=== PATIENT | male | born 1970 | race Caucasian/White ===

== ENCOUNTER 2018-12-20 13:00 | Emergency (ER) | payer OTHER, SELFPAY ==
[2018-12-20 13:09] VITALS: BP 120/81; PULSE 89; RESP 16; TEMP 37.1; O2SAT 99; BMI 25.8
[2018-12-20 13:21] LABS: Bedside Glucose 213 mg/dL (70-110)
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
--- NOTE | 2018-12-20 13:38 | EKG12_ITS ---
Test Reason : Blood Pressure : / mmHG Vent. Rate : 083 BPM Atrial Rate : 083 BPM P-R Int : 166 ms QRS Dur : 100 ms QT Int : 388 ms P-R-T Axes : 011 007 014 degrees QTc Int : 455 ms Normal sinus rhythm Normal ECG Confirmed by AMBER FERRERA, CLARY ([id number]), book editor ALISON LEVIN ([id number]) on 12/22/2018 2:11:56 PM Referred By: CORINNE Confirmed By:CLARY CLARK MD
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
[2018-12-20 13:40] VITALS: O2SAT 95
[2018-12-20 14:03] VITALS: BP 116/76; PULSE 83; RESP 18
[2018-12-20 14:09] LABS: Absolute Lymphocyte Count 2.08 X10^3/ul (0.83-4.51); Absolute Neutrophil Count 8.3 X10^3/uL (2.0-7.7); Basophil# 0.05 X10^3/uL; Basophil% 0.4 % (0-1); Eosinophil# 0.14 X10^3/uL; Eosinophils% 1.2 % (0-5); Hematocrit 39.9 % (40-54); Hemoglobin 12.7 g/dl (13.0-16.5); Lymphocyte # 2.08 X10^3/ul (4.0); Lymphocyte % 18.5 % (19-41); Mean Corp Hgb Conc 31.8 g/gl (32-36); Mean Corpuscular Hgb 24.8 pg (27.0-32.0); Mean Corpuscular Volume 77.9 fL (80-94); Monocyte# 0.62 X10^3/uL; Monocyte% 5.5 % (0-10); Neutrophil # 8.33 X10^3/uL (2.7-7.7); Platelet Count 353 K/mm3 (150-450); RBC Distribution Width CV 15.1 % (11.6-14.6); RBC Distribution Width SD 41.9 fl (35.1-43.9); Red Blood Count 5.12 M/mm3 (4.6-6.2); White Blood Count 11.3 K/mm3 (4.4-11.0)
[2018-12-20 14:10] LABS: POSITIVE COUNT NO; POSITIVE DIFFERENTIAL NO; POSITIVE MORPHOLOGY NO
[2018-12-20 14:24] LABS: AST(SGOT) 117 U/L (15-37); Alanine Aminotransfer ALT/SGPT 97 U/L (16-61); Albumin, Serum 4.1 g/dL (3.2-5.0); Alkaline Phosphatase 106 U/L (45-117); Anion Gap 12 (5-15); BUN 10 mg/dL (7-18); BUN/Creat Ratio 11.3 RATIO (10-20); Calcium,Total 9.4 mg/dL (8.5-10.1); Chloride 105 mmol/L (98-107); Creatinine, Serum 0.88 mg/dL (0.70-1.30); EST Glomerular Filtration Rate 98 mL/min (>60); Est Glom Filt Rate - Afr Amer 119 mL/min (>60); Estimated Creatinine Clearance 104.89 ml/min; Glucose 223 mg/dL (74-106); Potassium 3.6 mmol/L (3.5-5.1); Protein, Total 8.1 g/dL (6.4-8.2); Sodium Level 137 mmol/L (136-145)
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
[2018-12-20 15:13] VITALS: BP 97/56; PULSE 88; RESP 18; O2SAT 95
[2018-12-20] MEDS: Acetaminophen 500 MG Tablet 1000 MG PO (15:13)
[2018-12-20 15:21] VITALS: BP 107/73; PULSE 87; RESP 16; O2SAT 96
== END 2018-12-20 15:23 | disposition home or self-care (01) ==
PROVIDERS: Emergency Provider Emergency Medicine
DX: S20.212A Contusion of left front wall of thorax, initial encounter (principal); S20.211A Contusion of right front wall of thorax, initial encounter; S00.83XA Contusion of other part of head, initial encounter; T14.8XXA Other injury of unspecified body region, initial encounter; V47.5XXA Car driver injured in collision with fixed or stationary object in traffic accident, initial encounter; Y93.9 Activity, unspecified; Y99.9 Unspecified external cause status; F10.129 Alcohol abuse with intoxication, unspecified; Y90.8 Blood alcohol level of 240 mg/100 ml or more; E11.9 Type 2 diabetes mellitus without complications; I10 Essential (primary) hypertension; K21.9 Gastro-esophageal reflux disease without esophagitis; Z72.0 Tobacco use; Z79.84 Long term (current) use of oral hypoglycemic drugs; Z79.899 Other long term (current) drug therapy
CPT/HCPCS: 70450; 70486; 71260; 72125; 80053; 80320; 82962; 84484; 85025; 93005; 99284; Q9967; A4216; G0480

== ENCOUNTER 2019-01-27 16:19 | Emergency (ER) | payer OTHER, SELFPAY ==
[2019-01-27] VITALS (8 sets, daily range): BP systolic 105–159; BP diastolic 62–105; PULSE 88–108; RESP 15–24; TEMP 36.8; O2SAT 91–99; BMI 24.5
--- NOTE | 2019-01-27 16:34 | CM.ED ---
SOCIAL WORK NOTE AT THIS TIME PT APPEARS TOO INEBRIATED TO EVALUATE. WILL AWAIT BLOOD ALCOHOL RESULT BEFORE EVALUATION. SW TO CONTINUE TO FOLLOW AND ASSIST NEEDED. Jossy Jack, THREAD SPOOLER, KITA
[2019-01-27 16:45] LABS: Bedside Glucose 389 mg/dL (70-110)
[2019-01-27] MEDS: 0.9% Normal Saline 1,000 ML 1000 ML IV ×2 (17:48→18:52)
[2019-01-27 17:54] LABS: Absolute Lymphocyte Count 4.87 X10^3/ul (0.83-4.51); Absolute Neutrophil Count 5.4 X10^3/uL (2.0-7.7); Basophil# 0.06 X10^3/uL; Basophil% 0.5 % (0-1); Eosinophil# 0.11 X10^3/uL; Hematocrit 40.8 % (40-54); Hemoglobin 13.5 g/dl (13.0-16.5); Lymphocyte # 4.87 X10^3/ul (4.0); Lymphocyte % 44.1 % (19-41); Mean Corp Hgb Conc 33.1 g/gl (32-36); Mean Corpuscular Volume 72.6 fL (80-94); Mean Platelet Vol. 9.4 fl (6.2-12.0); Monocyte# 0.64 X10^3/uL; Monocyte% 5.8 % (0-10); Neutrophil # 5.35 X10^3/uL (2.7-7.7); Neutrophil % 48.4 % (47-70); Platelet Count 320 K/mm3 (150-450); RBC Distribution Width CV 14.5 % (11.6-14.6); RBC Distribution Width SD 37.8 fl (35.1-43.9); Red Blood Count 5.62 M/mm3 (4.6-6.2); White Blood Count 11.1 K/mm3 (4.4-11.0)
[2019-01-27 17:57] LABS: Differential Indicated SCAN CRITERIA MET; POSITIVE COUNT NO; POSITIVE DIFFERENTIAL NO; POSITIVE MORPHOLOGY YES
--- NOTE | 2019-01-27 18:02 | ED.RN ---
pt family at bedside. pt is loud, but not threatening harm to self of other at this time. 1:1 sitter in room and preforming q15 min charting. pt was asked to mind his mouth. pt is using profanity and vaguer language. still waiting on labs for crisis. dr was consulted about medications to assist patient to relax. dr wants etoh level back before meds being given. coretta urias rn [id number]
[2019-01-27 18:15] LABS: Anion Gap 14 (5-15); BUN 14 mg/dL (7-18); Calcium,Total 9.3 mg/dL (8.5-10.1); Chloride 102 mmol/L (98-107); Creatinine, Serum 0.88 mg/dL (0.70-1.30); EST Glomerular Filtration Rate 99 mL/min (>60); Est Glom Filt Rate - Afr Amer 120 mL/min (>60); Estimated Creatinine Clearance 111.71 ml/min; Glucose 336 mg/dL (74-106); Potassium 3.7 mmol/L (3.5-5.1); Sodium Level 139 mmol/L (136-145)
[2019-01-27 18:16] LABS: Amphetamine Urine VISTA NEGATIVE (<1000 ng/mL); Barbiturate Urine VISTA NEGATIVE (< 200 ng/mL); Benzodiazepine Urine VISTA NEGATIVE (< 200 ng/mL); Cocaine Urine VISTA NEGATIVE (< 300 ng/mL); Ecstacy Urine VISTA NEGATIVE (< 500 ng/mL); Methadone Urine VISTA NEGATIVE (< 300 ng/mL); PCP Urine VISTA NEGATIVE (< 25 ng/mL); THC Urine VISTA NEGATIVE (< 50 ng/mL); Vista UDS pH Range 6
[2019-01-27 18:17] LABS: Anisocytosis 1+; Microcytosis 1+; Ovalocyte RARE; Platelet Estimate ADEQUATE (ADEQ); Target Cells 1+; Tear Drop Cell RARE
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
[2019-01-27] MEDS: Ziprasidone IM 20 MG/ML VIAL IM (18:55)
[2019-01-27] MEDS: metFORMIN HCl 1,000 MG Tablet 1000 MG PO (18:58)
--- NOTE | 2019-01-27 19:03 | CM.ED ---
SOCIAL WORK NOTE PT'S ALCOHOL LEVEL PRESENTLY AT 384. UNABLE TO ASSESS AT THIS TIME. Jossy Jack, TECHNICIAN HELPER INSTRUMENT, HOME HEALTH ATTENDANT
[2019-01-28] VITALS (7 sets, daily range): BP systolic 118–165; BP diastolic 76–118; PULSE 90–108; RESP 14–16; O2SAT 91–98
--- NOTE | 2019-01-28 05:56 | ED.DEP ---
ED Disposition - Plan for ED Patient: Instructions: ED Alcohol Intoxication Referrals: [facility],Tahmina Hinton [Primary Care Provider] -
== END 2019-01-28 07:04 | disposition home or self-care (01) ==
LOC: ED 17:02
PROVIDERS: Emergency Provider Emergency Medicine
DX: F10.129 Alcohol abuse with intoxication, unspecified (principal); Y90.8 Blood alcohol level of 240 mg/100 ml or more; F32.9 Major depressive disorder, single episode, unspecified; E11.65 Type 2 diabetes mellitus with hyperglycemia; R45.851 Suicidal ideations; R05 Cough; R51 Headache; K21.9 Gastro-esophageal reflux disease without esophagitis; Z72.0 Tobacco use; Z79.84 Long term (current) use of oral hypoglycemic drugs; Z79.899 Other long term (current) drug therapy; Z87.19 Personal history of other diseases of the digestive system; Z90.49 Acquired absence of other specified parts of digestive tract
CPT/HCPCS: 80048; 80307; 80320; 82962; 85025; 96360; 96361; 96372; 99285; J7030; A4216; G0480; J3486

== ENCOUNTER → 2019-07-23 07:12 | Outpatient (CLI) | payer MEDICAID, SELFPAY ==
[2019-01-27 16:21] VITALS: BMI 24.5
[2019-07-23 08:23] LABS: Absolute Neutrophil Count 6.7 X10^3/uL (2.0-7.7); Basophil# 0.05 X10^3/uL; Basophil% 0.5 % (0-1); Eosinophil# 0.18 X10^3/uL; Eosinophils% 1.7 % (0-5); Hematocrit 44.1 % (40-54); Lymphocyte % 26.7 % (19-41); Mean Corp Hgb Conc 29.5 g/dL (32-36); Mean Corpuscular Hgb 21.1 pg (27.0-32.0); Mean Corpuscular Volume 71.7 fL (80-94); Mean Platelet Vol. 10.4 fl (6.2-12.0); Monocyte# 0.98 X10^3/uL; NRBC Flagged by Analyzer 0 % (0-5); Neutrophil # 6.71 X10^3/uL (2.7-7.7); Neutrophil % 61.7 % (47-70); Platelet Count 330 K/mm3 (150-450); RBC Distribution Width CV 14.5 % (11.6-14.6); RBC Distribution Width SD 36.5 fl (35.1-43.9); Red Blood Count 6.15 M/mm3 (4.6-6.2); White Blood Count 10.9 K/mm3 (4.4-11.0)
[2019-07-23 08:39] LABS: Hemoglobin A1c 9.9 % (4.2-6.3)
[2019-07-23 08:58] LABS: ALB/GLOB Ratio 1.2 RATIO (0.9-2.4); AST(SGOT) 13 U/L (15-37); Alanine Aminotransfer ALT/SGPT 30 U/L (16-61); Albumin, Serum 4.3 g/dL (3.2-5.0); Alkaline Phosphatase 86 U/L (45-117); Anion Gap 11 (5-15); BUN 13 mg/dL (7-18); BUN/Creat Ratio 14.1 RATIO (10-20); Calcium,Total 9.3 mg/dL (8.5-10.1); Chloride 105 mmol/L (98-107); Cholesterol 128 mg/dL (200); Creatinine, Serum 0.92 mg/dL (0.70-1.30); EST Glomerular Filtration Rate 94 mL/min (>60); Est Glom Filt Rate - Afr Amer 113 mL/min (>60); GGTP 41 U/L (15-85); Globulin 3.7 g/dL (2.2-4.2); Glucose 237 mg/dL (74-106); High Density Lipoprotein 32 mg/dL; Potassium 3.8 mmol/L (3.5-5.1); Sodium Level 140 mmol/L (136-145); T4 Free Direct 1.17 ng/dL (0.76-1.46); T4 Total, Thyroxin 11.1 ug/dL (4.5-12.1); Triglycerides 190 mg/dL; Very Low Density Lipoprotein 38 mg/dL (5-40)
[2019-07-23 09:35] LABS: Vitamin D,25 Hydroxy 25.3 ng/mL (29.95-100.01)
== END ==
PROVIDERS: Referring Provider Nurse Practitioner Family; Visit Provider Nurse Practitioner Family
DX: E11.9 Type 2 diabetes mellitus without complications (principal); I10 Essential (primary) hypertension; E78.5 Hyperlipidemia, unspecified; E55.9 Vitamin D deficiency, unspecified
CPT/HCPCS: 36415; 80053; 80061; 82306; 82977; 83036; 84436; 84439; 85025

== ENCOUNTER → 2019-12-05 11:08 | Outpatient (CLI) | payer MEDICAID, SELFPAY ==
[2019-01-27 16:21] VITALS: BMI 24.5
[2019-12-05 11:45] LABS: Hematocrit 42.3 % (40-54); Hemoglobin 12.9 g/dL (13.0-16.5); Mean Corp Hgb Conc 30.5 g/dL (32-36); Mean Corpuscular Hgb 21.2 pg (27.0-32.0); Mean Corpuscular Volume 69.6 fL (80-94); Mean Platelet Vol. 9.8 fl (6.2-12.0); Platelet Count 351 K/mm3 (150-450); RBC Distribution Width CV 15.5 % (11.6-14.6); RBC Distribution Width SD 36.5 fl (35.1-43.9); Red Blood Count 6.08 M/mm3 (4.6-6.2); White Blood Count 12.3 K/mm3 (4.4-11.0)
[2019-12-05 12:15] LABS: ALB/GLOB Ratio 1.2 RATIO (0.9-2.4); AST(SGOT) 13 U/L (15-37); Alanine Aminotransfer ALT/SGPT 39 U/L (16-61); Albumin, Serum 4.4 g/dL (3.2-5.0); Alkaline Phosphatase 91 U/L (45-117); Anion Gap 9 (5-15); BUN 10 mg/dL (7-18); BUN/Creat Ratio 9.6 RATIO (10-20); Calcium,Total 9.7 mg/dL (8.5-10.1); Chloride 106 mmol/L (98-107); Cholesterol 108 mg/dL (200); Creatinine, Serum 1.04 mg/dL (0.70-1.30); EST Glomerular Filtration Rate 81 mL/min (>60); Est Glom Filt Rate - Afr Amer 98 mL/min (>60); Globulin 3.8 g/dL (2.2-4.2); Glucose 240 mg/dL (74-106); High Density Lipoprotein 39 mg/dL; Potassium 3.7 mmol/L (3.5-5.1); Protein, Total 8.2 g/dL (6.4-8.2); Sodium Level 139 mmol/L (136-145); Triglycerides 103 mg/dL; Very Low Density Lipoprotein 21 mg/dL (5-40)
[2019-12-05 12:23] LABS: Hemoglobin A1c 9.3 % (4.2-6.3)
== END ==
PROVIDERS: Referring Provider Nurse Practitioner Family; Visit Provider Nurse Practitioner Family
DX: E11.9 Type 2 diabetes mellitus without complications (principal); I11.0 Hypertensive heart disease with heart failure
CPT/HCPCS: 36415; 80053; 80061; 83036; 85027

== ENCOUNTER 2020-04-09 08:46 | Emergency (ER) | payer MEDICAID, SELFPAY ==
[2019-01-27 16:21] VITALS: BMI 24.5
[2020-04-09 08:47] VITALS: BP 169/87; PULSE 88; RESP 19; TEMP 37.1; O2SAT 97; BMI 25.8
[2020-04-09 08:51] VITALS: O2SAT 100
--- NOTE | 2020-04-09 09:00 | EKG12_ITS ---
Test Reason : DYSRHYTHMIA Blood Pressure : / mmHG Vent. Rate : 078 BPM Atrial Rate : 078 BPM P-R Int : 166 ms QRS Dur : 108 ms QT Int : 374 ms P-R-T Axes : 032 005 050 degrees QTc Int : 426 ms Normal sinus rhythm Normal ECG Confirmed by AMBER FERRERA, CLARY ([id number]), school photograph editor MEGAN DC ([id number]) on 04/12/2020 9:23:15 AM Referred By: Confirmed By:CLARY CLARK MD
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
[2020-04-09 09:38] LABS: Absolute Lymphocyte Count 2.18 X10^3/uL (0.83-4.51); Absolute Neutrophil Count 5.3 X10^3/uL (2.0-7.7); Basophil# 0.02 X10^3/uL; Basophil% 0.2 % (0-1); Eosinophil# 0.11 X10^3/uL; Eosinophils% 1.3 % (0-5); Hematocrit 39.2 % (40-54); Hemoglobin 11.7 g/dL (13.0-16.5); Lymphocyte # 2.18 X10^3/ul (4.0); Lymphocyte % 26.3 % (19-41); Mean Corp Hgb Conc 29.8 g/dL (32-36); Mean Corpuscular Hgb 21.4 pg (27.0-32.0); Mean Corpuscular Volume 71.5 fL (80-94); Mean Platelet Vol. 9.8 fl (6.2-12.0); Monocyte# 0.61 X10^3/uL; Monocyte% 7.4 % (0-10); NRBC Flagged by Analyzer 0 % (0-5); Neutrophil # 5.31 X10^3/uL (2.7-7.7); Neutrophil % 64.2 % (47-70); Platelet Count 338 K/mm3 (150-450); RBC Distribution Width CV 14.4 % (11.6-14.6); RBC Distribution Width SD 36.6 fl (35.1-43.9); Red Blood Count 5.48 M/mm3 (4.6-6.2); White Blood Count 8.3 K/mm3 (4.4-11.0)
--- NOTE | 2020-04-09 09:44 | NURSING ---
GREEN TOP HEMOLIZED
[2020-04-09 10:24] LABS: Alcohol, Blood (Medical)-Serum < 3.0 mg/dL
[2020-04-09 10:30] LABS: ALB/GLOB Ratio 1.1 RATIO (0.9-2.4); AST(SGOT) 15 U/L (15-37); Alanine Aminotransfer ALT/SGPT 25 U/L (16-61); Alkaline Phosphatase 67 U/L (45-117); Anion Gap 3 (5-15); BUN 13 mg/dL (7-18); BUN/Creat Ratio 15.6 RATIO (10-20); Calcium,Total 9.1 mg/dL (8.5-10.1); Chloride 107 mmol/L (98-107); Creatinine, Serum 0.84 mg/dL (0.70-1.30); EST Glomerular Filtration Rate 105 mL/min (>60); Est Glom Filt Rate - Afr Amer 127 mL/min (>60); Estimated Creatinine Clearance 119.33 ml/min; Globulin 3.7 g/dL (2.2-4.2); Glucose 180 mg/dL (74-106); Potassium 4.4 mmol/L (3.5-5.1); Protein, Total 7.7 g/dL (6.4-8.2); Sodium Level 138 mmol/L (136-145)
[2020-04-09 11:06] VITALS: PULSE 80; RESP 18; O2SAT 99
[2020-04-09 13:23] VITALS: BP 139/77; PULSE 68; RESP 15; O2SAT 98
== END 2020-04-09 13:24 | disposition home or self-care (01) ==
PROVIDERS: Emergency Provider Emergency Medicine; PCP Nurse Practitioner Family
DX: S02.32XA Fracture of orbital floor, left side, initial encounter for closed fracture (principal); S30.1XXA Contusion of abdominal wall, initial encounter; S00.81XA Abrasion of other part of head, initial encounter; V47.5XXA Car driver injured in collision with fixed or stationary object in traffic accident, initial encounter; Y93.89 Activity, other specified; Y92.9 Unspecified place or not applicable; Y99.9 Unspecified external cause status; Z88.0 Allergy status to penicillin; F17.200 Nicotine dependence, unspecified, uncomplicated
CPT/HCPCS: 70450; 71046; 74177; 80053; 80320; 84484; 85025; 93005; 99285; Q9967; A4216; G0480

== ENCOUNTER → 2020-07-16 11:15 | Outpatient (CLI) | payer MEDICAID, SELFPAY ==
[2020-07-16 11:51] LABS: Absolute Lymphocyte Count 1.96 X10^3/uL (0.83-4.51); Absolute Neutrophil Count 5.7 X10^3/uL (2.0-7.7); Basophil# 0.03 X10^3/uL; Basophil% 0.3 % (0-1); Eosinophil# 0.12 X10^3/uL; Eosinophils% 1.4 % (0-5); Hematocrit 40.3 % (40-54); Hemoglobin 11.8 g/dL (13.0-16.5); Lymphocyte # 1.96 X10^3/ul (4.0); Lymphocyte % 22.8 % (19-41); Mean Corp Hgb Conc 29.3 g/dL (32-36); Mean Corpuscular Hgb 20.6 pg (27.0-32.0); Mean Corpuscular Volume 70.2 fL (80-94); Mean Platelet Vol. 8.9 fl (6.2-12.0); Monocyte# 0.75 X10^3/uL; Monocyte% 8.7 % (0-10); NRBC Flagged by Analyzer 0 % (0-5); Neutrophil # 5.73 X10^3/uL (2.7-7.7); Neutrophil % 66.6 % (47-70); Platelet Count 346 K/mm3 (150-450); RBC Distribution Width CV 15.4 % (11.6-14.6); RBC Distribution Width SD 38.3 fl (35.1-43.9); Red Blood Count 5.74 M/mm3 (4.6-6.2); White Blood Count 8.6 K/mm3 (4.4-11.0)
[2020-07-16 12:23] LABS: ALB/GLOB Ratio 1.2 RATIO (0.9-2.4); AST(SGOT) 15 U/L (15-37); Alanine Aminotransfer ALT/SGPT 23 U/L (16-61); Albumin, Serum 4.4 g/dL (3.2-5.0); Alkaline Phosphatase 103 U/L (45-117); Anion Gap 7 (5-15); BUN 12 mg/dL (7-18); Calcium,Total 9.9 mg/dL (8.5-10.1); Chloride 105 mmol/L (98-107); Cholesterol 163 mg/dL (200); EST Glomerular Filtration Rate 85 mL/min (>60); Est Glom Filt Rate - Afr Amer 103 mL/min (>60); Globulin 3.7 g/dL (2.2-4.2); Glucose 140 mg/dL (74-106); High Density Lipoprotein 35 mg/dL; Potassium 3.8 mmol/L (3.5-5.1); Protein, Total 8.1 g/dL (6.4-8.2); Sodium Level 137 mmol/L (136-145); Triglycerides 138 mg/dL; Very Low Density Lipoprotein 28 mg/dL (5-40)
[2020-07-16 12:28] LABS: Hemoglobin A1c 8.3 % (3.8-5.6)
[2020-07-18 08:41] LABS: Vitamin D,25 Hydroxy 55.8 ng/mL
== END ==
PROVIDERS: PCP Nurse Practitioner Family; Referring Provider Nurse Practitioner Family; Visit Provider Nurse Practitioner Family
DX: E11.9 Type 2 diabetes mellitus without complications (principal); I10 Essential (primary) hypertension; E78.5 Hyperlipidemia, unspecified; E55.9 Vitamin D deficiency, unspecified
CPT/HCPCS: 36415; 80053; 80061; 82306; 83036; 85025

== ENCOUNTER → 2021-03-24 10:04 | Outpatient (CLI) | payer BC, MEDICAID, SELFPAY ==
[2021-03-24 11:33] LABS: Absolute Lymphocyte Count 2.06 X10^3/uL (0.83-4.51); Absolute Neutrophil Count 5.1 X10^3/uL (2.0-7.7); Basophil# 0.05 X10^3/uL; Basophil% 0.6 % (0-1); Eosinophil# 0.31 X10^3/uL; Eosinophils% 3.7 % (0-5); Hematocrit 42.5 % (40-54); Hemoglobin 12.3 g/dL (13.0-16.5); Lymphocyte # 2.06 X10^3/ul (0.83-4.51); Lymphocyte % 24.6 % (19-41); Mean Corp Hgb Conc 28.9 g/dL (32-36); Mean Corpuscular Hgb 20.8 pg (27.0-32.0); Mean Corpuscular Volume 71.9 fL (80-94); Mean Platelet Vol. 9.2 fl (6.2-12.0); Monocyte# 0.79 X10^3/uL; Monocyte% 9.4 % (0-10); NRBC Flagged by Analyzer 0 % (0-5); Neutrophil # 5.12 X10^3/uL (2.7-7.7); Neutrophil % 61.1 % (47-70); Platelet Count 377 K/mm3 (150-450); RBC Distribution Width CV 15.5 % (11.6-14.6); RBC Distribution Width SD 39.1 fl (35.1-43.9); Red Blood Count 5.91 M/mm3 (4.6-6.2); White Blood Count 8.4 K/mm3 (4.4-11.0)
[2021-03-24 12:04] LABS: ALB/GLOB Ratio 1.1 RATIO (0.9-2.4); AST(SGOT) 20 U/L (15-37); Alanine Aminotransfer ALT/SGPT 36 U/L (16-61); Albumin, Serum 4.4 g/dL (3.2-5.0); Alkaline Phosphatase 128 U/L (45-117); Anion Gap 8 (5-15); BUN 16 mg/dL (7-18); Calcium,Total 9.3 mg/dL (8.5-10.1); Chloride 101 mmol/L (98-107); Cholesterol 121 mg/dL (200); Creatinine, Serum 0.94 mg/dL (0.70-1.30); EST Glomerular Filtration Rate 91 mL/min (>60); Est Glom Filt Rate - Afr Amer 110 mL/min (>60); Glucose 302 mg/dL (74-106); High Density Lipoprotein 36 mg/dL; Microalbumin:Creatinine Ratio 364.2 mg/g CRE (<30 mg/g CRE); Potassium 4.1 mmol/L (3.5-5.1); Protein, Total 8.4 g/dL (6.4-8.2); Sodium Level 134 mmol/L (136-145); Triglycerides 367 mg/dL; Very Low Density Lipoprotein 73 mg/dL (5-40)
== END ==
PROVIDERS: PCP Nurse Practitioner Adult Health; Referring Provider Nurse Practitioner Adult Health; Visit Provider Nurse Practitioner Adult Health
DX: E11.9 Type 2 diabetes mellitus without complications (principal)
CPT/HCPCS: 36415; 80053; 80061; 82043; 82570; 85025

== ENCOUNTER 2021-11-06 05:38 | Emergency (ER) | payer OTHER, MEDICAID, SELFPAY ==
[2021-11-06 05:39] VITALS: BP 181/98; PULSE 95; RESP 16; TEMP 36.8; O2SAT 95; BMI 25.9
[2021-11-06 06:00] LABS: Absolute Lymphocyte Count 2.68 X10^3/uL (0.83-4.51); Absolute Neutrophil Count 5.6 X10^3/uL (2.0-7.7); Basophil# 0.05 X10^3/uL; Basophil% 0.5 % (0-1); Eosinophil# 0.06 X10^3/uL; Eosinophils% 0.7 % (0-5); Hematocrit 40.2 % (40-54); Hemoglobin 11.7 g/dL (13.0-16.5); Lymphocyte # 2.68 X10^3/ul (0.83-4.51); Lymphocyte % 29.2 % (19-41); Mean Corp Hgb Conc 29.1 g/dL (32-36); Mean Corpuscular Hgb 20.3 pg (27.0-32.0); Mean Corpuscular Volume 69.9 fL (80-94); Mean Platelet Vol. 9.1 fl (6.2-12.0); Monocyte# 0.79 X10^3/uL; Monocyte% 8.6 % (0-10); NRBC Flagged by Analyzer 0 % (0-5); Neutrophil # 5.57 X10^3/uL (2.7-7.7); Neutrophil % 60.8 % (47-70); Platelet Count 345 K/mm3 (150-450); RBC Distribution Width CV 15.7 % (11.6-14.6); RBC Distribution Width SD 38.6 fl (35.1-43.9); Red Blood Count 5.75 M/mm3 (4.6-6.2); White Blood Count 9.2 K/mm3 (4.4-11.0)
--- NOTE | 2021-11-06 06:07 | EDS_ITS ---
HPI <Dr. Osmin Fernandes MD - Last Filed: 11/06/21 21:57> History of Present Illness Chief Complaint: Laceration Informant: patient Narrative Narrative: Patient presents with injury to his right hand while at work shortly before arrival. He got his hand caught in a piece of machinery that had 2 rotating drums with an intervening belt and a guard. His hand got pulled into the machine and up against the guard. He had a laceration with some squirting of blood at the scene. This is controlled with gauze applied before arrival. Nothing really makes the symptoms worse. The gauze and compression did make it better. He has no other injury other than his right hand/wrist area. He is right-hand dominant. Past medical history includes high blood pressure, diabetes, high cholesterol Medication list is reviewed Allergy: Penicillin patient states it is an unknown reaction from childhood Surgery: Appendectomy Works full-time, lives independently, does smoke [facility] <Dr. Osmin Fernandes MD - Last Filed: 11/06/21 21:57> [facility] Medical History (Updated 11/06/21 @ 13:16 by Delonte Mcfarland) Diabetes Gastric reflux History of diverticulitis Hyperlipidemia Hypertension Open wound Wears glasses Home Medications amlodipine 5 mg PO DAILY 12/20/18 [History Last Taken Unknown] losartan 100 mg PO DAILY 12/20/18 [History Last Taken Unknown] metformin 1,000 mg PO BID 12/20/18 [History Last Taken Unknown] omeprazole 20 mg PO DAILY 12/20/18 [History Last Taken Unknown] sertraline [Zoloft] 100 mg PO DAILY 12/20/18 [History Last Taken Unknown] atorvastatin 10 mg PO DAILY 11/06/21 [History Last Taken Unknown] clindamycin HCl 300 mg PO 4X/DAY #80 cap 11/06/21 [Rx Last Taken 11/06/21] hydrocodone-acetaminophen 1 tab PO Q6H PRN 3 Days #10 tab 11/06/21 [Rx Last Taken 11/06/21] insulin detemir U-100 [Levemir FlexTouch U-100 Insuln] 60 unit SUBCUT DAILY 11/06/21 [History Last Taken Unknown] pioglitazone 15 mg PO DAILY 11/06/21 [History Last Taken Unknown] Allergy/AdvReac Type Severity Reaction Status Date / Time bupropion [From Wellbutrin] Allergy Hives Verified 11/06/21 13:40 Penicillins Allergy Swelling Verified 11/06/21 13:39 Family History (Updated 11/06/21 @ 13:17 by Delonte Mcfarland) Mother Pancreatic cancer Surgical History (Updated 11/06/21 @ 13:14 by Delonte Mcfarland) History of appendectomy History of colon surgery Social History (Updated 11/06/21 @ 13:20 by Delonte Mcfarland) adopted: No household members: other housing: house number of children: 2 financial difficulty paying for basics: not very hard service: No current occupational status: employed current occupation: factory manager current occupational exposures/hazards: Yes (current occupational injury) pets and animals: No history of recent travel: No current gender identity: male Smoking Status: Current every day smoker tobacco type: cigarettes Tobacco: How many years used: 35 Smokeless tobacco user: chewing tobacco and snuff ROS <Dr. Osmin Fernandes MD - Last Filed: 11/06/21 21:57> ROS ED Constitutional Constitutional ED: Denies fever(s) ENT ENT ED: Denies rhinorrhea Respiratory/Chest Respiratory/Chest: Denies cough or dyspnea Gastrointestinal Gastrointestinal: Denies nausea or vomiting Musculoskeletal Musculoskeletal: Reports other Details: See history of present illness Integumentary Reports other Details: Lacerations to right hand and wrist as in history of present illness. Neurologic Neurologic: Reports paresthesias; Denies weakness Endocrine Endocrinology: Denies polydipsia or polyuria Hematologic/Lymphatic Hematologic/Lymphatic: Reports other Details: No anticoagulation ; Denies easy bleeding or easy bruising Allergic/Immunologic Allergic/Immunologic ED: Denies urticaria EXAM <Dr. Osmin Fernandes MD - Last Filed: 11/06/21 21:57> Physical Exam Const Vital Signs: 11/06/21 05:39 11/06/21 07:47 Temperature 98.2 F Temperature Source Temporal Pulse Rate 95 87 Respiratory Rate 16 16 Blood Pressure 181/98 H 169/96 H Blood Pressure Mean 125 120 Pulse Ox 95 99 Oxygen Delivery Method Room Air Room Air Positive well nourished and well developed General Appearance ED: well developed and NAD HEENT atraumatic Neck full ROM Chest Wall inspection of chest normal Resp normal respiratory effort and clear to auscultation bilaterally Auscultation: Negative for rales, rhonchi or wheezes Cardio regular rhythm Rate: regular rate GI normal to inspection, nondistended, normoactive bowel sounds and non-tender Palpation: soft Extremity Extremity Narrative: Right hand is unwrapped. He has a V-shaped laceration on the lateral aspect of his right wrist with retraction of the skin and possibly some tissue loss. There is the possibility of tendon injured or some fascia. Distal to this, there is a large curvilinear laceration of approximately 8 cm on the dorsum of the right thumb in the region of the first webspace. There is a small pulsatile vessel that is stopped with mild pressure. There is also a distal smaller Patient can flex thumb. He can extend it but it is limited. He can extend the tip but not fully or against pressure. There is some concern for weakness of the extensor pollicis longus. His sensation is intact in the thumb but he states it feels less than normal on both the medial and lateral side. However he can feel me touch. Neuro Neuro Narrative: See above extremity exam Sensorium / Orientation: alert Psych mental status grossly normal Skin Skin Narrative: Lacerations as above. <Dr. Ernestina Cruz MD - Last Filed: 11/06/21 07:34> Physical Exam Const Vital Signs: 11/06/21 05:39 11/06/21 07:47 Temperature 98.2 F Temperature Source Temporal Pulse Rate 95 87 Respiratory Rate 16 16 Blood Pressure 181/98 H 169/96 H Blood Pressure Mean 125 120 Pulse Ox 95 99 Oxygen Delivery Method Room Air Room Air [facility] <Dr. Osmin Fernandes MD - Last Filed: 11/06/21 21:57> [facility] Narrative Medical decision making narrative: Patient is given meds for pain, nausea and antibiotics. Dressing was applied with some compression. Tetanus is updated. I feel the combination of this [id number]-[id number] injury, at work, with multiple lacerations, small arterial bleed, slight decrease sensation, questionable tendon injury in a diabetic is more than should be repaired in the emergency department. For this reason I did discuss the case with orthopedic surgeon, Dr. Hernandez. He agreed with the treatment so far and requested we try a gentle rinse out to get this wound heavy cleaner. He will come in and take a look at it to make sure it something that he feels is appropriate to be done locally. Patient was updated. We are pending x-rays. In order to expedite options of surgery, I did do some basic blood work. 06: 35 Dressings were taken down. It looks like the bleeding has now stopped with just compression. The wounds were gently irrigated with a liter of saline. The proximal V-shaped laceration did have some skin that had folded under and stuck. Therefore there may not be any missing skin but this is a thin strip with some decreased vascularity. Patient did seem to have a little bit better motion. The wounds were wrapped again with ABD bandages, Kerlix, and an Ronaldo wrap with mild compression. Lab Data Attestation: I reviewed the patient's lab results. Labs: Laboratory Results - last 24 hr 11/06/21 11/06/21 05:53 05:53 WBC 9.2 RBC 5.75 Hgb 11.7 L Hct 40.2 MCV 69.9 L MCH 20.3 L MCHC 29.1 L RDW Std Deviation 38.6 RDW Coeff of [place] 15.7 H Plt Count 345 MPV 9.1 Immature Gran % (Auto) 0.200 Neut % (Auto) 60.8 Lymph % (Auto) 29.2 [place] % (Auto) 8.6 Eos % (Auto) 0.7 Baso % (Auto) 0.5 Absolute Neuts (auto) 5.6 Absolute Lymphs (auto) 2.68 Nucleated RBC % 0 Sodium 137 Potassium 3.9 Chloride 103 Carbon Dioxide 26.0 Anion Gap 8 BUN 12 Creatinine 0.88 Estim Creat Clear Calc 112.68 Est GFR (MDRD) Af Amer 118 Est GFR (MDRD) Non-Af 98 BUN/Creatinine Ratio 13.6 Glucose 151 H Calcium 9.5 Radiography Diagnostic Testing: Clinical Impression(s) from Imaging Studies Hand X-Ray 11/06/21 06:10 IMPRESSION: 1. Degenerative changes of the IP joint of the thumb. 2. No visualized fracture. 3. Question of soft tissue emphysema in the lateral hand versus artifact from overlying bandaging. Electronically Signed: Eduardo English MD at 6:48 EST , Service support , Chest X-Ray 11/06/21 07:58 IMPRESSION: No acute thoracic pathology. Electronically Signed: Casey Hines MD at 8:36 EST Tel , Service support , <Dr. Ernestina Cruz MD - Last Filed: 11/06/21 07:34> [facility] Lab Data Labs: Laboratory Results - last 24 hr 11/06/21 11/06/21 05:53 05:53 WBC 9.2 RBC 5.75 Hgb 11.7 L Hct 40.2 MCV 69.9 L MCH 20.3 L MCHC 29.1 L RDW Std Deviation 38.6 RDW Coeff of [place] 15.7 H Plt Count 345 MPV 9.1 Immature Gran % (Auto) 0.200 Neut % (Auto) 60.8 Lymph % (Auto) 29.2 [place] % (Auto) 8.6 Eos % (Auto) 0.7 Baso % (Auto) 0.5 Absolute Neuts (auto) 5.6 Absolute Lymphs (auto) 2.68 Nucleated RBC % 0 Sodium 137 Potassium 3.9 Chloride 103 Carbon Dioxide 26.0 Anion Gap 8 BUN 12 Creatinine 0.88 Estim Creat Clear Calc 112.68 Est GFR (MDRD) Af Amer 118 Est GFR (MDRD) Non-Af 98 BUN/Creatinine Ratio 13.6 Glucose 151 H Calcium 9.5 Radiography Diagnostic Testing: Clinical Impression(s) from Imaging Studies Hand X-Ray 11/06/21 06:10 IMPRESSION: 1. Degenerative changes of the IP joint of the thumb. 2. No visualized fracture. 3. Question of soft tissue emphysema in the lateral hand versus artifact from overlying bandaging. Electronically Signed: Eduardo English MD at 6:48 EST , Service support , Chest X-Ray 11/06/21 07:58 IMPRESSION: No acute thoracic pathology. Electronically Signed: Casey Hines MD at 8:36 EST Tel , Service support , Treatment and Re-Evaluation Comments:: Patient signed out to me pending evaluation by Dr. Hernandez. He did present to the emergency room and evaluated the patient. Wounds will be cleansed and dressed by Dr. Hernandez. Plan will be to take him to the operating room tomorrow. He will be discharged with prescription for clindamycin and [place] for pain. Discharge Plan Triage Chief Complaint: Laceration ED Provider: Osmin Fernandes Dx/Rx/DC Orders Clinical Impression: Laceration of hand involving extensor tendon Prescriptions: New clindamycin HCl 150 mg capsule 300 mg PO 4X/DAY Qty: 80 RF: 0 hydrocodone-acetaminophen 5-325 mg tablet 1 tab PO Q6H PRN (Reason: pain) 3 Days Qty: 10 RF: 0 No Action sertraline [Zoloft] 100 MG tablet 100 mg PO DAILY RF: 0 amlodipine 5 MG tablet 5 mg PO DAILY RF: 0 metformin 1,000 MG tablet 1,000 mg PO BID RF: 0 losartan 25 MG tablet 100 mg PO DAILY RF: 0 omeprazole 20 MG capsule 20 mg PO DAILY RF: 0 pioglitazone 15 mg tablet 15 mg PO DAILY RF: 0 atorvastatin 10 mg tablet 10 mg PO DAILY RF: 0 Levemir FlexTouch U-100 Insuln 100 unit/mL (3 mL) insulin pen 60 unit SUBCUT DAILY RF: 0 Primary Care Provider: Gisel Mariee Referrals: Josemanuel Hernandez DO [STAFF PHYSICIAN] - 1 Day Gisel Mariee NP-C [Primary Care Provider] - Activity Restrictions/Additional Instructions: Dr. Hernandez's office will contact you regarding time and location of surgery tomorrow. Disposition Disposition: Home, Self Care Discharge Date/Time: 11/06/21 08:21
--- NOTE | 2021-11-06 06:10 | RAD_ITS ---
EXAM: XR RIGHT HAND COMPLETE, 3 OR MORE VIEWS CLINICAL INDICATION: trauma trauma TECHNIQUE: Frontal, lateral and oblique views of the right hand. This report was created using [employer] report [employer] technology. COMPARISON: None. FINDINGS: BONES/JOINTS: There is degenerative arthrosis of the interphalangeal joint of the thumb. There is a 3 mm soft tissue calcification overlying the lateral aspect of the distal metaphysis of the proximal phalanx of thumb, which might be related to remote trauma. There is no visualized radiodense foreign body. No acute fracture. No subluxation. Normal alignment. No sclerotic or destructive changes observed. SOFT TISSUES: There is apparent heterogeneity of soft tissues of the lateral hand which is probably artifact from overlying bandaging. Soft tissue emphysema cannot be excluded. No soft tissue swelling or gas. No radiopaque foreign body. RAD/Hand Min 3 Views IMPRESSION: 1. Degenerative changes of the IP joint of the thumb. 2. No visualized fracture. 3. Question of soft tissue emphysema in the lateral hand versus artifact from overlying bandaging. Electronically Signed: Eduardo English MD at 6:48 EST , Service support ,
[2021-11-06 06:11] LABS: Anion Gap 8 (5-15); BUN 12 mg/dL (7-18); BUN/Creat Ratio 13.6 RATIO (10-20); Calcium,Total 9.5 mg/dL (8.5-10.1); Chloride 103 mmol/L (98-107); Creatinine, Serum 0.88 mg/dL (0.70-1.30); EST Glomerular Filtration Rate 98 mL/min (>60); Est Glom Filt Rate - Afr Amer 118 mL/min (>60); Estimated Creatinine Clearance 112.68 ml/min; Glucose 151 mg/dL (74-106); Potassium 3.9 mmol/L (3.5-5.1); Sodium Level 137 mmol/L (136-145)
[2021-11-06] MEDS: Diphth,Pertuss(Acell),Tet Vac 0.5 ML Vial IM (06:11)
[2021-11-06] MEDS: Ondansetron 4 MG/2 ML Vial IV ×2 (06:12→07:46)
[2021-11-06] MEDS: Morphine 4 MG/ML Syringe IV ×3 (06:12→07:46)
--- NOTE | 2021-11-06 06:20 | ED.RN ---
MARINAI filled out with patient since he cannot use his right hand at this time, and is R hand dominant. Bryon Rosales brought patient in and patient referred to him as the boss. Per Bryon Rosales, patient does not need further work-up for workman's compensation.
--- NOTE | 2021-11-06 07:38 | EKG12_ITS ---
Test Reason : PRE-OP Blood Pressure : / mmHG Vent. Rate : 086 BPM Atrial Rate : 086 BPM P-R Int : 158 ms QRS Dur : 110 ms QT Int : 362 ms P-R-T Axes : 057 -01 028 degrees QTc Int : 433 ms Normal sinus rhythm Normal ECG Confirmed by AMBER FERRERA, CLARY ([id number]), medical editor MEGAN DC ([id number]) on 11/06/2021 1:10:00 PM Referred By: Josemanuel Hernandez Confirmed By:CLARY CLARK MD
--- NOTE | 2021-11-06 07:39 | CONS.ORTHO ---
HPI Consult Data Date of Consult: 11/06/21 HPI Narrative HPI Narrative: NGOC RODRIGUEZ, is a 50 M who presents To [facility] emergency department this morning after a work-related injury where his right hand and forearm was caught in a piece of machinery at [employer] where he works. He reports some numbness on the dorsum of his right hand following the injury, but states he is able to feel light touch. Reports pain with passive or attempted active motion of the IP joint of the left thumb. Patient is right-hand dominant. I was contacted from the emergency room physician who performed a provisional irrigation of the wound and stated the laceration was too complex for him to closed. Patient denies any significant injury to the right hand or wrist in the past. Denies any other injuries. Denies fevers, chills, nausea vomiting, chest pain or shortness of breath. Patient does report a significant history of diabetes mellitus type 2, most recent A1c of 10. PFSH Medical History Diabetes History of diverticulitis Hyperlipidemia Hypertension Home Medications amlodipine 5 mg PO DAILY 12/20/18 [History Last Taken Unknown] losartan 100 mg PO DAILY 12/20/18 [History Last Taken Unknown] metformin 1,000 mg PO BID 12/20/18 [History Last Taken Unknown] omeprazole 20 mg PO DAILY 12/20/18 [History Last Taken Unknown] sertraline [Zoloft] 100 mg PO DAILY 12/20/18 [History Last Taken Unknown] atorvastatin 10 mg PO DAILY 11/06/21 [History Last Taken Unknown] clindamycin HCl 300 mg PO 4X/DAY #80 cap 11/06/21 [Rx Last Taken Unknown] hydrocodone-acetaminophen 1 tab PO Q6H PRN 3 Days #10 tab 11/06/21 [Rx Last Taken Unknown] insulin detemir U-100 [Levemir FlexTouch U-100 Insuln] 60 unit SUBCUT DAILY 11/06/21 [History Last Taken Unknown] pioglitazone 15 mg PO DAILY 11/06/21 [History Last Taken Unknown] Allergy/AdvReac Type Severity Reaction Status Date / Time Penicillins Allergy Swelling Verified 11/06/21 05:41 Surgical History History of appendectomy Social History Smoking Status: Current every day smoker tobacco type: cigarettes ROS ROS Narrative 10 point review of systems obtained, and negative unless otherwise noted in HPI. Vital Signs Vital Signs Vital Signs: 11/06/21 05:39 Temperature 98.2 F Temperature Source Temporal Pulse Rate 95 Respiratory Rate 16 Blood Pressure 181/98 H Blood Pressure Mean 125 Pulse Ox 95 Oxygen Delivery Method Room Air Weight Weight: 191 lb 5.78 oz Body Mass Index (BMI) 25.9 Physical Exam Narrative General -A&Ox3, NAD, appears stated age. Vital signs stable, afebrile. Respiratory -normal work of breathing, no intercostal retractions. CV -pulses regular, brisk capillary refill ?4 limbs. Abdomen-soft, nontender, nondistended. No guarding, rigidity, rebound tenderness. Musculoskeletal/neurologic -full range of motion nontender throughout bilateral Lower extremities, left upper extremity with full sensation and strength in all dermatomes and myotomes. No midline cervical tenderness. Right upper idcnzfqyy-G-rsrzej laceration 4 x 3 cm along the dorsal radial aspect of the distal forearm. No active drainage. Questionable skin loss is noted. Dusky skin edges. Curvilinear laceration overlying the dorsum of the IP and MCP joint of the right thumb, approximately 5 x 2 cm without significant skin loss apparent. Diminished sensation in the thumb, but present. Pain with active extension and significant weakness of the IP joint of the thumb. Cardinal motions otherwise are intact. Palpable radial pulse with brisk capillary refill in all fingertips. Lab / Micro Data Result Diagrams: 11/06/21 05:53 11/06/21 05:53 Labs: Laboratory Results - last 24 hr 11/06/21 05:53: WBC 9.2, RBC 5.75, Hgb 11.7 L, Hct 40.2, MCV 69.9 L, MCH 20.3 L, MCHC 29.1 L, RDW Std Deviation 38.6, RDW Coeff of [place] 15.7 H, Plt Count 345, MPV 9.1, Immature Gran % (Auto) 0.200, Neut % (Auto) 60.8, Lymph % (Auto) 29.2, [place] % (Auto) 8.6, Eos % (Auto) 0.7, Baso % (Auto) 0.5, Absolute Neuts (auto) 5.6, Absolute Lymphs (auto) 2.68, Nucleated RBC % 0 11/06/21 05:53: Sodium 137, Potassium 3.9, Chloride 103, Carbon Dioxide 26.0, Anion Gap 8, BUN 12, Creatinine 0.88, Estim Creat Clear Calc 112.68, Est GFR (MDRD) Af Amer 118, Est GFR (MDRD) Non-Af 98, BUN/Creatinine Ratio 13.6, Glucose 151 H, Calcium 9.5 Radiology Impression Hand X-Ray 11/06/21 06:10 IMPRESSION: 1. Degenerative changes of the IP joint of the thumb. 2. No visualized fracture. 3. Question of soft tissue emphysema in the lateral hand versus artifact from overlying bandaging. Electronically Signed: Eduardo nEglish MD at 6:48 EST , Service support , Assessment & Plan Assessment/Plan (1) Laceration of hand involving extensor tendon: PLAN: Patient seen and examined the emergency department. There was some question of arterial bleeding, but at my time of examination, this had resolved. The extensor pollicis longus tendon appears to be lacerated.Patient would benefit from a formal irrigation and debridement in the operating room, as surgical exploration, possible extensor pollicis longus repair, and laceration repair. The risk, benefits, alternatives to procedure were reviewed with the patient at length and he agreed to proceed with surgery. I discussed with the patient that due to availability, surgery would either be this evening or tomorrow during the day, given the patient the option. He expressed interest in going home today with planned outpatient surgery tomorrow. He was given a dose of clindamycin and tetanus updated in the emergency department. I recommended discharge on oral clindamycin from the emergency room physician. We will contact the patient from the office for further surgical planning. Wound was redressed with Xeroform, ABDs, Kerlix, and Ronaldo wrap. He was told to keep the dressing clean dry intact until surgery.
[2021-11-06 07:47] VITALS: BP 169/96; PULSE 84; PULSE 87; RESP 16; O2SAT 97; O2SAT 99
--- NOTE | 2021-11-06 07:58 | RAD_ITS ---
STUDY: X-RAY CHEST REASON FOR EXAM: Male, 50 years old. Preoperative exam TECHNIQUE: Frontal view of the chest COMPARISON: 04/09/20 FINDINGS: The lungs are clear. There are no pleural effusions. There is no pneumothorax. The heart is normal in size. The visualized osseous structures are within normal limits. RAD/Chest 1 View (Portable) IMPRESSION: No acute thoracic pathology. Electronically Signed: Casey Hines MD at 8:36 EST Tel , Service support ,
== END 2021-11-06 08:21 | disposition home or self-care (01) ==
PROVIDERS: Emergency Provider Emergency Medicine; PCP Nurse Practitioner Adult Health; Visit Provider Emergency Medicine
DX: S66.221A Laceration of extensor muscle, fascia and tendon of right thumb at wrist and hand level, initial encounter (principal); E11.9 Type 2 diabetes mellitus without complications; Z79.4 Long term (current) use of insulin; W31.9XXA Contact with unspecified machinery, initial encounter; Y92.63 Factory as the place of occurrence of the external cause; Y99.0 Civilian activity done for income or pay; E78.00 Pure hypercholesterolemia, unspecified; I10 Essential (primary) hypertension; K21.9 Gastro-esophageal reflux disease without esophagitis; F17.210 Nicotine dependence, cigarettes, uncomplicated; Z79.84 Long term (current) use of oral hypoglycemic drugs
CPT/HCPCS: 71045; 73130; 80048; 85025; 90471; 90715; 93005; 96365; 96375; 96376; 99283; A4216; J2405

== ENCOUNTER 2021-11-06 12:50 | Day surgery (SDC) | payer OTHER, MEDICAID, SELFPAY ==
[2021-11-06] VITALS (12 sets, daily range): BP systolic 104–122; BP diastolic 67–78; PULSE 77–88; RESP 16–18; TEMP 36.3–36.9; O2SAT 88–97; BMI 25.1
[2021-11-06 13:40] LABS: Bedside Glucose 118 mg/dL (70-110)
[2021-11-06] MEDS: Lactated Ringers 1,000 ML 15 ML IV ×3 (13:48→19:42)
[2021-11-06] MEDS: Cefazolin 2 GM in 0.9% Normal Saline 100 ML IV (15:37)
[2021-11-06] MEDS: Bupivacaine Mpf 0.5% 30 ML VIAL (17:48)
--- NOTE | 2021-11-06 18:19 | DCINST_ITS ---
Discharge Instructions Follow Up Care Test Results: Test results from this visit will be discussed in further detail at your follow-up appointment, if applicable. Discharge Plan Admission Attending Provider: Josemanuel Hernandez [facility] Providers: Gisel Mariee Instructions Additional Instructions / Restrictions: Follow preprinted instructions from your surgeons office. Discharge Orders/Prescriptions Prescriptions: No Action sertraline [Zoloft] 100 MG tablet 100 mg PO DAILY RF: 0 amlodipine 5 MG tablet 5 mg PO DAILY RF: 0 metformin 1,000 MG tablet 1,000 mg PO BID RF: 0 losartan 25 MG tablet 100 mg PO DAILY RF: 0 omeprazole 20 MG capsule 20 mg PO DAILY RF: 0 pioglitazone 15 mg tablet 15 mg PO DAILY RF: 0 atorvastatin 10 mg tablet 10 mg PO DAILY RF: 0 Levemir FlexTouch U-100 Insuln 100 unit/mL (3 mL) insulin pen 60 unit SUBCUT DAILY RF: 0 clindamycin HCl 150 mg capsule 300 mg PO 4X/DAY Qty: 80 RF: 0 hydrocodone-acetaminophen 5-325 mg tablet 1 tab PO Q6H PRN (Reason: pain) 3 Days Qty: 10 RF: 0 [facility] - Disposition Disposition (needs filled in before D/C Order can be placed): Home, Self Care
--- NOTE | 2021-11-06 18:20 | OP.PCM_ITS ---
Report of Operation Date of Procedure: 11/06/21 Description of Surgical Findings:: Preoperative diagnosis: 1. Traumatic laceration right dorsal radial wrist 2. Traumatic laceration right dorsal thumb with suspected extensor pollicis longus laceration Postoperative diagnoses: 1. Traumatic laceration right dorsal radial wrist with skin loss, laceration measuring 45 mm 2. Traumatic laceration dorsal thumb overlying the proximal phalanx 30 mm 3. Extensor pollicis longus laceration zone 3, right thumb 4. Right ring finger 40% zone 1 extensor tendon laceration with traumatic arthrotomy 5. Right small finger nail bed avulsion Procedures: 1. Layered closure of right dorsal radial wrist with reapproximation of fascia, subcutaneous tissue and skin of 45 mm 2. Simple closure of traumatic laceration over the dorsal thumb proximal phalanx 30 mm 3. Zone 3 right extensor pollicis longus tendon repair 4. Right ring finger partial repair zone 1 extensor tendon 5. Right small finger nail plate/nailbed repair 6. Application of thumb spica splint right wrist and hand Primary Surgeon: Josemanuel Hernandez DO Engineer Second Assistant: None Anesthesiologist: Dr. Cotter / Basilio Romero CRNA Anesthesia: General with LMA Estimated blood loss: 25 cc IV fluids: Per anesthesia record Urine output: None recorded Complications: None apparent Implants: None Drains/packing: None Intraoperative findings: See dictated operative report below. Specimen: None Preoperative indications: This is a 50-year-old poorly controlled diabetic who sustained a work-related injury earlier this morning as he was finishing third shift. His right hand was caught in a machine at [employer] where he works. He noted severe pain and some paresthesias of the right hand as well as profuse bleeding. He was seen in the emergency department [facility] earlier this morning. I saw the patient in consultation. Due to surgery availability, and no emergent surgical intervention indicated, I planned on discharge to home with surgical intervention the day following. Fortunately, availability allowed for same-day surgery. Patient was contacted and we arranged surgery as an outpatient. I recommended based on his exam surgical exploration of the right hand and wrist, possible extensor pollicis longus repa ir, and further repair as indicated. All questions were answered to patient satisfaction. Informed consent obtained after discussing the risk, benefits, terms procedure. Description of procedure: Patient was identified in the preoperative holding area by name, medical record number, and date of . The operative extremity was marked. All questions answered to patient satisfaction. At time of his procedure, patient was brought to the operative suite positioned supine a standard operating table. All bony prominences were well-padded. A hand table was attached to the patient's right side. A well-padded pneumatic tourniquet was applied to the right upper arm. General anesthesia was induced and the Regimex airway placed. After securing the tube, we rotated the bed approximately 45 degrees. We then prepped and draped the right upper extremity in a normal, sterile orthopedic fashion using a Betadine prep. We then performed a timeout with all parties in attendance in agreement with the side, site, operation be performed. No concerns voiced and would like to proceed with surgery. 2 g Ancef was administered prior to incision by anesthesia staff. I first opened the large lacerations overlying the dorsal radial wrist and proximal phalanx of the thumb. There is a small noncontiguous laceration overlying the interphalangeal joint which was connected to allow for a large f ull-thickness flap to explore the extensor pollicis longus which was suspected to be lacerated. There was some punctate bleeding which was cauterized with bipolar cautery. I then thoroughly irrigated the wounds. I then exsanguinated the right upper extremity the Esmarch bandage. Tourniquet was inflated to 250 mmHg remained up for 90 minutes. Esmarch was removed. I first turned my attention to the extensor pollicis longus. It appeared to be lacerated overlying the proximal phalanx consistent with a zone 3 tendon injury. There is no significant tendon loss or retraction. I placed a 25-gauge needle in the proximal segment after it was tensioned. I performed 3 [id number]-[id number] sutures utilizing 3-0 Ethibond across the tendon without gap formation or undue tension, after first attempting a cruciform repair which did not allow given the zone of repair. I was able to passively flex the IP joint without significant gap formation. I then turned my attention to the dorsal radial wrist. There was some punctate bleeding noted from a dorsal vein. Branches of the superficial range of the radial nerve were encountered, and appeared to be intact. The first dorsal compartment was identified, a small area of synovium was able to be reapproximated overlying the first dorsal compartment prior to skin closure with a 3-0 Vicryl suture. I then turned my attention to the right ring finger. There is a 5 mm laceration overlying the ulnar aspect of the DIP joint dorsally. Flexion of the joint revealed a traumatic arthrotomy with the chondral surface easily visible. There did appear to be some chondral damage, whether posttraumatic or osteoarthritic, was difficult to discern. I extended the laceration proximal and distal to elevate Ventura type flaps to better visualize the terminal tendon. Approximately 40% of the terminal extensor tendon appeared to be lacerated in this zone 1. I thoroughly irrigated the joint with normal saline. I performed a chwobo-jq-blnae closure with 3-0 Ethibond suture of the terminal tendon with excellent reapproximation of the tendon. I then turned my attention to the small finger due to a subungual hematoma which was identified. The nail plate and nailbed was completely avulsed from the germinal matrix. The nail plate was removed and placed in a Betadine solution on the back table. I thoroughly irrigated the wound. I then elevated the germinal matrix by making full-thickness incisions in line with the paronychial folds. I reapproximated the nailbed to the germinal matrix with 5-0 Chromic Gut suture. I reapproximated the nailbed bed to the paronychial folds, which was also disassociated from both on the radial and ulnar aspects with 5-0 Chromic Gut suture. I closed the incisions with 4-0 nylon suture in simple fashion. T here was a small, 3 mm traumatic laceration on the ulnar aspect of the DIP joint, which was able to probe down to bone. This was thoroughly irrigated and closed skin only with 4-0 nylon suture. I then returned my attention to the extensor pollicis longus laceration overlying the proximal phalanx of the thumb. I closed the skin with interrupted horizontal mattress 4-0 nylon suture. I then turned my attention proximally to the dorsal radial laceration. There was some skin loss noted. There was a proximally based flap, V-shaped noted. I would have been unable to reapproximate the skin utilizing this flap. I elected to proceed with a V-Y advancement flap. Approximately 5 mm of the flap was excised to allow for proper closure. Skin was reapproximated with 4-0 nylon suture in simple fashion. I then cleansed the skin. I performed a block of the superficial branch of the radial nerve overlying the first dorsal compartment with 10 cc 0.5% plain bupivacaine as well as digital blocks of the ring and small fingers with 10 cc total of 0.5% plain bupivacaine. There was some partial-thickness abrasions noted on the dorsum of his hand. These were dressed with Xeroform. Lacerations as well as the nailbed of the small finger were dressed with Xeroform. A bulky dressing was applied. I then placed the patient in a well-padded thumb spica splint utilizing fiberglass. Patient tolerated the procedure well without apparent complication. He safely awoke in the operative suite after anesthesia was reversed and was safely extubated. He was transferred to his gurney and subsequently to PACU in stable condition. Postoperative plan: Patient be nonweightbearing to the operative extremity. Maintain splint until follow-up. Elevate the right hand. Okay to wiggle fingers. Patient has a prescription for Rio and clindamycin from the emergency department, I recommend that he continue both of these. We will see the patient in follow-up in approximately 1 week, with plans to start occupational therapy. I will have them fashion a thermoplastic splint for the thumb.
[2021-11-06 19:36] LABS: Bedside Glucose 48 mg/dL (70-110)
[2021-11-06 19:36] LABS: Bedside Glucose 120 mg/dL (70-110)
[2021-11-06 19:36] LABS: Bedside Glucose 57 mg/dL (70-110)
--- NOTE | 2021-11-06 20:07 | SUR.PHASEI ---
POST OP BLOOD SUGAR AT 1826 = 48. PATIENT WAS ALERT AND ORIENTED. GIVEN APPLE JUICE. CONSUMED 8 OZ OF APPLE JUICE. REPEAT BLOOD SUGAR AT 1856 = 57. PATIENT HAD MORPHINE 4 MG IV GIVEN AT 1821 FOR RIGHT HAND PAIN AND WAS NOW VERY SLEEPY. GIVEN DEXTROSE 50% 12.5 ML IV PER NURSE INITIATED PROTOCOL POLICY. REPEAT BLOOD SUGAR AT 1914 = 120. DR.B SHARMA UPDATED ON THE EVENTS. INSTRUCTIONS GIVEN TO PATIENT TO CHECK HIS BLOOD SUGAR PRIOR TO GOING TO BED AND IN THE AM WHEN WAKING.
[2021-11-06 20:46] LABS: Bedside Glucose 90 mg/dL (70-110)
== END 2021-11-06 23:59 | disposition home or self-care (01) ==
LOC: SDC 12:56 → AC 12:57
PROVIDERS: Referring Provider Student in an Organized Health Care Education/Training Program; Visit Provider Student in an Organized Health Care Education/Training Program
PROC: (CPT 26418; principal; 2021-11-06 15:00)
DX: S61.511A Laceration without foreign body of right wrist, initial encounter (principal); S61.316A Laceration without foreign body of right little finger with damage to nail, initial encounter; S66.221A Laceration of extensor muscle, fascia and tendon of right thumb at wrist and hand level, initial encounter; S66.324A Laceration of extensor muscle, fascia and tendon of right ring finger at wrist and hand level, initial encounter; W31.9XXA Contact with unspecified machinery, initial encounter; Y92.63 Factory as the place of occurrence of the external cause; Y99.0 Civilian activity done for income or pay; Z23 Encounter for immunization; E11.9 Type 2 diabetes mellitus without complications; I10 Essential (primary) hypertension; E78.5 Hyperlipidemia, unspecified; K21.9 Gastro-esophageal reflux disease without esophagitis; F17.210 Nicotine dependence, cigarettes, uncomplicated; Z79.4 Long term (current) use of insulin; Z79.899 Other long term (current) drug therapy
CPT/HCPCS: 26418 ×2; 11760; 12032; 12002; 71045; 73130; 80048; 82962; 85025; 90471; 90715; 93005; 96365; 96375; 96376; 99283; J7120; A4216; J2405

== ENCOUNTER 2021-11-20 15:02 | Outpatient (CLI) | payer BC, MEDICAID, SELFPAY ==
[2021-11-20 15:41] LABS: Absolute Lymphocyte Count 2.61 X10^3/uL (0.83-4.51); Absolute Neutrophil Count 5.7 X10^3/uL (2.0-7.7); Basophil# 0.04 X10^3/uL; Basophil% 0.4 % (0-1); Eosinophil# 0.08 X10^3/uL; Eosinophils% 0.9 % (0-5); Hematocrit 38.2 % (40-54); Hemoglobin 11.4 g/dL (13.0-16.5); Lymphocyte # 2.61 X10^3/ul (0.83-4.51); Lymphocyte % 28.3 % (19-41); Mean Corp Hgb Conc 29.8 g/dL (32-36); Mean Corpuscular Hgb 20.7 pg (27.0-32.0); Mean Corpuscular Volume 69.2 fL (80-94); Mean Platelet Vol. 8.6 fl (6.2-12.0); Monocyte# 0.78 X10^3/uL; Monocyte% 8.5 % (0-10); NRBC Flagged by Analyzer 0 % (0-5); Neutrophil # 5.65 X10^3/uL (2.7-7.7); Neutrophil % 61.4 % (47-70); Platelet Count 368 K/mm3 (150-450); RBC Distribution Width CV 15.3 % (11.6-14.6); RBC Distribution Width SD 37.8 fl (35.1-43.9); Red Blood Count 5.52 M/mm3 (4.6-6.2); White Blood Count 9.2 K/mm3 (4.4-11.0)
== END 2021-11-20 23:59 | disposition short-term general hospital (02) ==
LOC: LAB 15:03
PROVIDERS: Visit Provider Nurse Practitioner Adult Health
DX: E11.40 Type 2 diabetes mellitus with diabetic neuropathy, unspecified (principal); D64.9 Anemia, unspecified
CPT/HCPCS: 36415; 82043; 85025

== ENCOUNTER 2021-12-04 15:48 | Outpatient (CLI) | payer BC, MEDICAID, SELFPAY ==
[2021-12-04 16:06] LABS: Absolute Lymphocyte Count 2.01 X10^3/uL (0.83-4.51); Basophil# 0.03 X10^3/uL; Basophil% 0.3 % (0-1); Eosinophil# 0.11 X10^3/uL; Eosinophils% 1.2 % (0-5); Hematocrit 38.2 % (40-54); Hemoglobin 11.6 g/dL (13.0-16.5); Lymphocyte # 2.01 X10^3/ul (0.83-4.51); Lymphocyte % 22.5 % (19-41); Mean Corp Hgb Conc 30.4 g/dL (32-36); Mean Corpuscular Hgb 20.8 pg (27.0-32.0); Mean Corpuscular Volume 68.5 fL (80-94); Mean Platelet Vol. 8.7 fl (6.2-12.0); Monocyte# 0.75 X10^3/uL; Monocyte% 8.4 % (0-10); NRBC Flagged by Analyzer 0 % (0-5); Neutrophil # 6.01 X10^3/uL (2.7-7.7); Neutrophil % 67.2 % (47-70); Platelet Count 328 K/mm3 (150-450); RBC Distribution Width CV 15.9 % (11.6-14.6); RBC Distribution Width SD 37.9 fl (35.1-43.9); Red Blood Count 5.58 M/mm3 (4.6-6.2)
--- NOTE | 2021-12-04 16:20 | RAD_ITS ---
STUDY: X-RAY - RIGHT FOOT CLINICAL: Male, 51 years old. Pain, stiffness TECHNIQUE: 2 view(s) of the foot. COMPARISON: None. FINDINGS: Normal talus and tarsal bones. Small calcaneal spurs Normal visualized subtalar, talonavicular, calcaneocuboid, tarsal and tarsometatarsal articulations. Normal metatarsi. Normal metatarsophalangeal joint of the great toe. Normal tibial and fibular sesamoid bones. Normal interphalangeal joint of the great toe. Normal phalanges of the great toe. Normal second through fifth metatarsophalangeal joints. Normal interphalangeal joints and phalanges of the lesser toes. The soft tissue structures are unremarkable. RAD/Foot 2 Views IMPRESSION: Small calcaneal spurs, no demonstrated fracture or suspicious osseous lesion Electronically Signed: Kedar Huizar MD at 17:47 EST ,
[2021-12-04 16:43] LABS: Vitamin B12 432 pg/mL (211-911)
[2021-12-04 17:18] LABS: Iron 55 ug/dL (65-175); Iron Binding Capacity,Total 372 ug/dL (250-450)
== END 2021-12-04 23:59 | disposition home or self-care (01) ==
LOC: LAB 15:49
PROVIDERS: Visit Provider Nurse Practitioner Adult Health
DX: M79.671 Pain in right foot (principal); E11.40 Type 2 diabetes mellitus with diabetic neuropathy, unspecified; D64.9 Anemia, unspecified
CPT/HCPCS: 36415; 73620; 82274; 82607; 82746; 83540; 83550; 85025

== ENCOUNTER 2021-12-25 10:30 | Outpatient (RCR) | payer OTHER, MEDICAID, SELFPAY ==
--- NOTE | 2021-11-21 16:16 | HP.OTEVAL_ITS ---
Patient's Visit Information NGOC RODRIGUEZ is a 51 year old M, referred to Occupational Therapy by Dr. Josemanuel Hernandez, DO, with a diagnosis of traumatic laceration right dorsal radial wrist/ thumb, EPL laceration. Date of Evaluation: 11/20/21 Occupational Therapist: FRANCO Patricio/Neel, CHT - Subjective This 51 year old male was seen for OT eval with dx of Traumatic laceration right dorsal radial wrist with skin loss, laceration measuring 45mm, traumatic laceration of dorsal thumb overlying the proximal phalanx 30mm. EPL laceration zone 3 right thumb. Right RF 40% zone 1 extensor tendon laceration with traumatic arthrotomy. right small finger nail bed avulsion. DOI 11/06/21- surgery was performed same day. pt employed at [employer] and is glove got caught in a machine and pulled his hand into it- pt able to get free and other assisted in getting his wound dressed and staff took pt to ER. Dr. Hernandez took over pts care and completed surgical repair. pt arrives today for custom orthosis - - Pain right hand 6 Pain Intensity Range: 4, 7 - ROM Wrist: right 20/15 left 60/70 CMC: right will test at s/p week 4 left 5 MP: right will test at s/p week 4 left 40 IP: right will test at s/p week 4 left 50 Radial Abduction: right will test at s/p week 4 left 40 Palmar Abduction: right will test at s/p week 4 left WNL ROM Comments: due to pts DM and newly healing structures therapist will test pts ROM at week 4 - Strength Station Installation Supervisor: right NT left 75 Lateral Pinch: right NT left 12# Tripod Pinch: right NT left 10# Tip-to-Tip Pinch: right NT left 2# Strength Comments: will test right adult services librarian and pinch strength at later date - Sensation Sensation Comments: pt states numbness around incision - Quick DASH-Disab of Arm,Shoulder& Hand Quick DASH Score: 91.6650 - Goals Goal:100% adherence to protocol: Yes Comment: EPL repair protocol Goal:Daily scar massage when approriate: Yes Goal:ROM equal to unaffected hand: Yes Goal:Station Installation Supervisor/Pinch strength at least 75% of unaffected hand: Yes Goal:No pain with affected hand use: Yes Goal:Full use of affected hand in daily activities including: Yes Goal:Decrease scar hypersensitivity: Yes - Rehabilitation General Assessment: Postoperative diagnoses: 1. Traumatic laceration right dorsal radial wrist with skin loss, laceration measuring 45 mm. 2. Traumatic laceration dorsal thumb overlying the proximal phalanx 30 mm. 3. Extensor pollicis longus laceration zone 3, right thumb. 4. Right ring finger 40% zone 1 extensor tendon laceration with traumatic arthrotomy. 5. Right small finger nail bed avulsion. Procedures: 1. Layered closure of right dorsal radial wrist with reapproximation of fascia, subcutaneous tissue and skin of 45 mm. 2. Simple closure of traumatic laceration over the dorsal thumb proximal phalanx 30 mm. 3. Zone 3 right extensor pollicis longus tendon repair. 4. Right ring finger partial repair zone 1 extensor tendon. 5. Right small finger nail plate/nailbed repair. 6. Application of thumb spica splint right wrist and hand. pt significantly limited with right UE use for ADLs and IADLS- pt would benefit from skilled Services 2-3xweek for 6 weeks -. pt arrives 2 weeks s/p from the above repairs to right dominate hand- pt in need of skilled OTR/L, CHT services - therapist harsha. custom orthosis- placed pt in sight ext 20* and thumb midway between palmar and radial abduction, MPJ in extension and the IP in slight hyperextension- therapist ed. pt in orthosis care and precautions- pt demo understanding- pt demo ind. doff/donning of orthosis-. therapist ed. pt on wound care and to watch for sings of infection - pt dx of DM will possible take slower approach to ensure tendon strength-. will follow EPL repair protocol. week 3 initiate gentle AROM of wrist with thumb in relax in extension- scar mtg once incisions are closed. week 4 ROM exercise for wrist and separately to the thumb - begin mind-range active flexion/extension and progression to full- arc motion -. week 5 - cont with AROM adding composite active wrist and thumb flexion-. week 6 wean out of orthosis and use hand for light ADLs-(watch for signs of extensor lag). week 7 can add PROM as needed. week 8 initiate light soft putty for both FPL and EPL. pt demo understanding and agree to POC. Rehabilitation Potential: Good - Anticipated Interventions Early Active Motion, A/AAROM/PROM, Strengthening, Edema Control, Scar Care, Triggerpoint Release, Desensitization, Sensory Retraining, Wound Care, Modalities, Orthoses, Joint Protection/Energy Conservation, Ergonomic Education, Fine Motor Coord/Bradley, Education re assistive Equipment, Education re Diagnosis, Home Program - Visit Plan Frequency: 1-2x /Week Duration: 6 Weeks TEXT: Thank you for the opportunity to evaluate your patient. For Medicare and Medicare HMO plans, please review the plan of care and approve it. It will need to be FAXED BACK to us at [phone] for Medicare purposes. Please let me know if there are questions or concerns regarding this plan of care. Physician Signature:_ Date:
--- NOTE | 2021-12-25 10:53 | HP.OTREVAL ---
Dr. Josemanuel Hernandez, DO, It has been my pleasure to treat NGOC RODRIGUEZ over the last 11 visits for traumatic laceration right dorsal radial wrist/ thumb, EPL laceration. Please see the progress note below for an update on the occupational therapy plan of care! Subjective: pt arrives to session 7 weeks s/p from injury and EPL repair- pt states he feels that his right hand feels textures differently- as ex. his hair feels like straw. pt states he is not having difficulty with any daily tasks- but has not done anything aggressive with his hand. pt states he has pins and needle sensation of thumb and hand- LF and RF. pt states he feels he could return to work- Objective/Function: right lateral pinch 10# left is 12#. right tripod pinch 8# left is 10#. right heel cementer machine strength 60# left is 75#. right wrist 55/55. right CMC 10* left is 5*. right MP 40* left is 40*. right IP 30* Left is 50*. right thumb RA 35* left 40*. right RF PIP 0/90 DIP 0/35. right LF PIP -5/80 DIP -10/45. pt demo good functional ROM and strength. pt continues to have some scar adhesions-that continues to cause feeling if tightness. right digits monofilament sensation. testing at 3.22 (diminished light touch) one marker away from 2.83 which is normal sensation Plan Visits in this POC: will see if wants him to cont. therapy services- pt doing great Plan: pt returns to Goals - Goals Patient Goals: Use Hand/Wrist/Arm Normally Again Goal:100% adherence to protocol: Yes Goal:Daily scar massage when approriate: Yes Goal Progress: met goal Goal:ROM equal to unaffected hand: Yes Goal Progress: progressing but close Goal:Filter Press Pumper/Pinch strength at least 75% of unaffected hand: Yes Goal Progress: Goal Met Goal:No pain with affected hand use: Yes Goal:Full use of affected hand in daily activities including: Yes Goal Progress: Progressing Goal:Decrease scar hypersensitivity: Yes Goal Progress: Goal Met Anticipated Interventions Anticipated Interventions: Early Active Motion, A/AAROM/PROM, Strengthening, Edema Control, Scar Care, Triggerpoint Release, Desensitization, Sensory Retraining, Wound Care, Modalities, Orthoses, Joint Protection/Energy Conservation, Ergonomic Education, Fine Motor Coord/Bradley, Education re assistive Equipment, Education re Diagnosis, Home Program Please do not hesitate to contact me at [phone] by phone or if you have questions or concerns regarding this new plan of care! Sincerely, Oneida Kruger, OTR/L, CHT
--- NOTE | 2022-04-20 09:16 | HP.OTDCSUM_ITS ---
It has been my pleasure to treat NGOC RODRIGUEZ under orders from Dr. Josemanuel Hernandez, DO, for the diagnosis of traumatic laceration right dorsal radial wrist/ thumb, EPL laceration for a total of 11 visit(s). Please see the following information for a summary of their discharge status. % Improvement: 85 Objective/Function: right lateral pinch 10# left is 12#. right tripod pinch 8# left is 10#. right litigation secretary strength 60# left is 75#. right wrist 55/55. right CMC 10* left is 5*. right MP 40* left is 40*. right IP 30* Left is 50*. right thumb RA 35* left 40*. right RF PIP 0/90 DIP 0/35. right LF PIP -5/80 DIP - 10/45. pt demo good functional ROM and strength. pt continues to have some scar adhesions-that continues to cause feeling if tightness. right digits monofilament sensation. testing at 3.22 (diminished light touch) one marker away from 2.83 which is normal sensation Patient Goals: Use Hand/Wrist/Arm Normally Again Goal:100% adherence to protocol: Yes Goal:Daily scar massage when approriate: Yes Goal Progress: met goal Goal:ROM equal to unaffected hand: Yes Goal Progress: progressing but close Goal:Perfect Bind Machine Operator/Pinch strength at least 75% of unaffected hand: Yes Goal Progress: Goal Met Goal:No pain with affected hand use: Yes Goal:Full use of affected hand in daily activities including: Yes Goal Progress: Progressing Goal:Decrease scar hypersensitivity: Yes Goal Progress: Goal Met Plan: PT was last seen on 12/25/21 due to time lapse in services pt is D/C. If there are questions or concerns regarding this patient's occupational therapy, please fell free to call me at [phone]. Thank you for the referral of this patient. Sincerely, Oneida Kruger, OTR/L, CHT
== END 2021-12-25 19:00 | disposition home or self-care (01) ==
LOC: OT 10:30
PROVIDERS: Referring Provider Student in an Organized Health Care Education/Training Program; Visit Provider Student in an Organized Health Care Education/Training Program
DX: S61.511D Laceration without foreign body of right wrist, subsequent encounter (principal); S66.221D Laceration of extensor muscle, fascia and tendon of right thumb at wrist and hand level, subsequent encounter; S66.324D Laceration of extensor muscle, fascia and tendon of right ring finger at wrist and hand level, subsequent encounter; X58.XXXD Exposure to other specified factors, subsequent encounter
CPT/HCPCS: 97110; 97140; 97166; 97530; 97760

== ENCOUNTER → 2022-05-18 | Outpatient (CLI) | payer BC, MEDICAID, SELFPAY ==
[2022-05-18 10:20] LABS: Absolute Lymphocyte Count 2.47 X10^3/uL (0.83-4.51); Absolute Neutrophil Count 5.5 X10^3/uL (2.0-7.7); Basophil# 0.03 X10^3/uL; Basophil% 0.3 % (0-1); Eosinophils% 1.1 % (0-5); Hematocrit 36.8 % (40-54); Hemoglobin 10.9 g/dL (13.0-16.5); Lymphocyte # 2.47 X10^3/ul (0.83-4.51); Lymphocyte % 28.2 % (19-41); Mean Corp Hgb Conc 29.6 g/dL (32-36); Mean Corpuscular Hgb 20.8 pg (27.0-32.0); Mean Corpuscular Volume 70.2 fL (80-94); Monocyte# 0.66 X10^3/uL; Monocyte% 7.5 % (0-10); NRBC Flagged by Analyzer 0 % (0-5); Neutrophil # 5.48 X10^3/uL (2.7-7.7); Neutrophil % 62.6 % (47-70); Platelet Count 317 K/mm3 (150-450); RBC Distribution Width CV 15.5 % (11.6-14.6); RBC Distribution Width SD 38.4 fl (35.1-43.9); Red Blood Count 5.24 M/mm3 (4.6-6.2); White Blood Count 8.8 K/mm3 (4.4-11.0)
[2022-05-18 11:10] LABS: ALB/GLOB Ratio 1.3 RATIO (0.9-2.4); AST(SGOT) 15 U/L (15-37); Alanine Aminotransfer ALT/SGPT 19 U/L (16-61); Albumin, Serum 4.3 g/dL (3.2-5.0); Alkaline Phosphatase 163 U/L (45-117); Anion Gap 6 (5-15); BUN 18 mg/dL (7-18); Chloride 105 mmol/L (98-107); Cholesterol 101 mg/dL (200); Creatinine, Serum 1.06 mg/dL (0.70-1.30); EST Glomerular Filtration Rate 79 mL/min (>60); Est Glom Filt Rate - Afr Amer 95 mL/min (>60); Ferritin 30 ng/mL (26-388); Globulin 3.4 g/dL (2.2-4.2); Glucose 142 mg/dL (74-106); High Density Lipoprotein 37 mg/dL; Iron 88 ug/dL (65-175); Iron Binding Capacity,Total 384 ug/dL (250-450); Potassium 3.6 mmol/L (3.5-5.1); Protein, Total 7.7 g/dL (6.4-8.2); Sodium Level 137 mmol/L (136-145); Thyroid Stim Hormone (TSH) 1.95 uIU/mL (0.358-3.74); Triglycerides 100 mg/dL; Very Low Density Lipoprotein 20 mg/dL (5-40)
== END | disposition home or self-care (01) ==
LOC: LAB 09:37
DX: E11.9 Type 2 diabetes mellitus without complications (principal); D64.9 Anemia, unspecified
CPT/HCPCS: 36415; 80053; 80061; 82728; 83540; 83550; 84443; 85025

== ENCOUNTER → 2022-05-21 | Outpatient (CLI) | payer BC, MEDICAID, SELFPAY | END | disposition home or self-care (01) | LOC: LABSPEC 08:23 | DX: D64.9 Anemia, unspecified (principal) | CPT/HCPCS: 82274 ==

== ENCOUNTER → 2022-10-24 | Outpatient (CLI) | payer MEDICAID, SELFPAY ==
[2022-10-24 15:39] LABS: Absolute Lymphocyte Count 2.27 X10^3/uL (0.83-4.51); Absolute Neutrophil Count 7.7 X10^3/uL (2.0-7.7); Basophil# 0.06 X10^3/uL; Basophil% 0.5 % (0-1); Eosinophil# 0.17 X10^3/uL; Eosinophils% 1.5 % (0-5); Hematocrit 44.1 % (40-54); Hemoglobin 12.7 g/dL (13.0-16.5); Lymphocyte # 2.27 X10^3/ul (0.83-4.51); Lymphocyte % 20.3 % (19-41); Mean Corp Hgb Conc 28.8 g/dL (32-36); Mean Corpuscular Hgb 20.7 pg (27.0-32.0); Mean Corpuscular Volume 71.8 fL (80-94); Mean Platelet Vol. 8.8 fl (6.2-12.0); NRBC Flagged by Analyzer 0 % (0-5); Neutrophil # 7.73 X10^3/uL (2.7-7.7); Neutrophil % 69.2 % (47-70); Platelet Count 351 K/mm3 (150-450); RBC Distribution Width CV 15.7 % (11.6-14.6); RBC Distribution Width SD 38.9 fl (35.1-43.9); Red Blood Count 6.14 M/mm3 (4.6-6.2); White Blood Count 11.2 K/mm3 (4.4-11.0)
[2022-10-24 16:05] LABS: Ferritin 85 ng/mL (26-388)
== END | disposition home or self-care (01) ==
LOC: LAB 15:28
PROVIDERS: Visit Provider Family Medicine
DX: E11.9 Type 2 diabetes mellitus without complications (principal)
CPT/HCPCS: 36415; 82728; 83036; 85025

== ENCOUNTER → 2023-04-26 | Outpatient (CLI) | payer MEDICAID, SELFPAY ==
[2023-04-26 10:07] LABS: Hematocrit 38.9 % (40-54); Hemoglobin 11.5 g/dL (13.0-16.5); Mean Corp Hgb Conc 29.6 g/dL (32-36); Mean Corpuscular Hgb 21.2 pg (27.0-32.0); Mean Corpuscular Volume 71.8 fL (80-94); Mean Platelet Vol. 9.6 fl (6.2-12.0); Platelet Count 320 K/mm3 (150-450); RBC Distribution Width CV 15.7 % (11.6-14.6); Red Blood Count 5.42 M/mm3 (4.6-6.2); White Blood Count 9.2 K/mm3 (4.4-11.0)
[2023-04-26 11:06] LABS: ALB/GLOB Ratio 1.2 RATIO (0.9-2.4); AST(SGOT) 10 U/L (15-37); Alanine Aminotransfer ALT/SGPT 26 U/L (16-61); Albumin, Serum 4.3 g/dL (3.2-5.0); Alkaline Phosphatase 237 U/L (45-117); Anion Gap 6 (5-15); BUN 11 mg/dL (7-18); Calcium,Total 9.4 mg/dL (8.5-10.1); Chloride 103 mmol/L (98-107); Cholesterol 112 mg/dL (200); Creatinine, Serum 0.85 mg/dL (0.70-1.30); EST Glomerular Filtration Rate 102 mL/min (>60); Est Glom Filt Rate - Afr Amer 123 mL/min (>60); Globulin 3.6 g/dL (2.2-4.2); Glucose 211 mg/dL (74-106); High Density Lipoprotein 39 mg/dL; Potassium 4.7 mmol/L (3.5-5.1); Protein, Total 7.9 g/dL (6.4-8.2); Sodium Level 133 mmol/L (136-145); Thyroid Stim Hormone (TSH) 1.84 uIU/mL (0.358-3.74); Triglycerides 145 mg/dL; Very Low Density Lipoprotein 29 mg/dL (5-40)
== END | disposition home or self-care (01) ==
LOC: LAB 08:59
PROVIDERS: Referring Provider Nurse Practitioner Family; Visit Provider Nurse Practitioner Family
DX: I10 Essential (primary) hypertension (principal); E11.9 Type 2 diabetes mellitus without complications; E78.5 Hyperlipidemia, unspecified; D50.9 Iron deficiency anemia, unspecified
CPT/HCPCS: 36415; 80053; 80061; 82043; 84443; 85027

== ENCOUNTER → 2024-11-23 | Outpatient (CLI) | payer OTHER, SELFPAY ==
[2024-11-23 06:44] LABS: Absolute Lymphocyte Count 3.65 X10^3/uL (0.83-4.51); Absolute Neutrophil Count 6.2 X10^3/uL (2.0-7.7); Basophil# 0.07 X10^3/uL; Basophil% 0.6 % (0-1); Eosinophil# 0.14 X10^3/uL; Eosinophils% 1.2 % (0-5); Hematocrit 35.7 % (40-54); Hemoglobin 10.7 g/dL (13.0-16.5); Lymphocyte # 3.65 X10^3/ul (0.83-4.51); Lymphocyte % 32.2 % (19-41); Mean Corpuscular Hgb 21.5 pg (27.0-32.0); Mean Corpuscular Volume 71.7 fL (80-94); Mean Platelet Vol. 9.3 fl (6.2-12.0); Monocyte# 1.18 X10^3/uL; Monocyte% 10.4 % (0-10); NRBC Flagged by Analyzer 0 % (0-5); Neutrophil # 6.15 X10^3/uL (2.7-7.7); Neutrophil % 54.5 % (47-70); Platelet Count 383 K/mm3 (150-450); RBC Distribution Width CV 16.7 % (11.6-14.6); RBC Distribution Width SD 41.7 fl (35.1-43.9); Red Blood Count 4.98 M/mm3 (4.6-6.2); White Blood Count 11.3 K/mm3 (4.4-11.0)
[2024-11-23 07:28] LABS: ALB/GLOB Ratio 1.2 RATIO (0.9-2.4); AST(SGOT) 12 U/L (15-37); Alanine Aminotransfer ALT/SGPT 21 U/L (16-61); Albumin, Serum 4.2 g/dL (3.2-5.0); Alkaline Phosphatase 139 U/L (45-117); Anion Gap 7 (5-15); BUN 13 mg/dL (7-18); Chloride 106 mmol/L (98-107); Cholesterol 117 mg/dL (200); Creatinine, Serum 1.45 mg/dL (0.70-1.30); EST Glomerular Filtration Rate 54 mL/min (>60); Est Glom Filt Rate - Afr Amer 66 mL/min (>60); Globulin 3.5 g/dL (2.2-4.2); Glucose 166 mg/dL (74-106); High Density Lipoprotein 45 mg/dL; PSA,Total - Annual Screen 0.74 ng/mL (0.00-4.00); Potassium 4.4 mmol/L (3.5-5.1); Protein, Total 7.7 g/dL (6.4-8.2); Sodium Level 138 mmol/L (136-145); Triglycerides 189 mg/dL; Very Low Density Lipoprotein 38 mg/dL (5-40)
== END | disposition home or self-care (01) ==
PROVIDERS: PCP Nurse Practitioner Family; Referring Provider Nurse Practitioner Family; Visit Provider Nurse Practitioner Family
DX: I10 Essential (primary) hypertension (principal); E11.9 Type 2 diabetes mellitus without complications; Z12.5 Encounter for screening for malignant neoplasm of prostate
CPT/HCPCS: 36415; 80053; 80061; 82043; 84153; 84443; 85025; G0103

== ENCOUNTER → 2025-05-22 | Outpatient (CLI) | payer OTHER, SELFPAY ==
--- OUTSIDE RECORDS SUMMARY | 2025-05-22 11:22 | XMS RPT_ITS | CCD ---
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 0.40 mg/dL 0.20-1.00 [facility] Work Phone: Comment on above: For patients on eltr ombopag therapy, use of Dimension [place] TBIL is not recommended. Chloride [Moles/Vol] 105 mmol/L 98-107 [facility] Work Phone: Cholesterol [Mass/Vol] 101 mg/dL <200 [facility] Work Phone: Comment on above: <200 mg/dL Desirable 200-240 mg/dL Borderline >240 mg/dL High Risk Eosinophils/100 WBC (Bld) 1.1 % 0-5 [facility] Work Phone: Glucose [Mass/Vol] 142 mg/dL 74-106 [facility] Work Phone: Comment on above: Fasting Glucose resu lt greater than or equal to 126 mg/dL suggests DIABETES MELLITUS per A.D.A. criteria. Neutrophils (Bld) [#/Vol] 5.5 10*3/uL 2.0-7.7 [facility] Work Phone: Neutrophils/100 WBC (Bld) 62.6 % 47-70 [facility] Work Phone: Potassium [Moles/Vol] 3.6 mmol/L 3.5-5.1 [facility] Work Phone: Protein [Mass/Vol] 7.7 g/dL 6.4-8.2 [facility] Work Phone: Sodium [Moles/Vol] 137 mmol/L 136-145 [facility] Work Phone: Triglyceride [Mass/Vol] 100 mg/dL <199 [facility] Work Phone: Comment on above: The drugs N-Acetylcy steine and Metamizole may falsely depress this assay.Serum Triglycerides Reference Interval Normal <150 mg/dL Borderline high 150 - 199 mg/dL High 200 - 499 mg/dL Very High > or = 500 mg/dL WBC (Bld) [#/Vol] 8.8 10*3/uL 4.4-11.0 [facility] Work Phone: Blood erythrocytes count (nu mber/volume)on 05-18-2022 RBC (Bld) [#/Vol] 5.24 10*6/uL 4.6-[facility]: Blood hemoglobin measurement (mass/volume)on 05-18-2022 Hemoglobin (Bld) [Mass/Vol] 10.9 g/dL 13.0-16.5 [facility] Work Phone: Blood lymphocytes/100 leukoc yteson 05-18-2022 Lymphocytes/100 WBC (Bld) 28.2 % 19-41 [facility] Work Phone: Blood monocytes/100 leukocyt eson 05-18-2022 Monocytes/100 WBC (Bld) 7.5 % 0-10 [facility] Work Phone: Blood platelet mean volumeon 05-18-2022 Platelet mean volume (Bld) [Entitic vol] 9.0 fL 6.2-12.0 [facility] Work Phone: Determination of erythrocyte mean corpuscular volume (MCV)on 05-18-2022 MCV (RBC) [Entitic vol] 70.2 fL 80-94 [facility] Work Phone: Hematocrit Auto (Bld) [Volum e fraction]on 05-18-2022 Hematocrit (Bld) [Volume fraction] 36.8 % 40-54 [facility] Work Phone: Iron measurement (mass/mass) on 05-18-2022 Iron (Unsp spec) [Mass/Mass] 88 ug/dL 65-175 [facility] Work Phone: Laboratory - Chemistry and C hemistry - challengeon 05-18-2022 ALP [Catalytic activity/Vol] 163 U/L 45-117 [facility] Work Phone: ALT [Catalytic activity/Vol] 19 U/L 16-61 [facility] Work Phone: CO2 [Moles/Vol] 26.0 mmol/L 21.0-32.0 [facility] Work Phone: Globulin (S) [Mass/Vol] 3.4 g/dL 2.2-4.2 [facility] Work Phone: Urea nitrogen/Creatinine [Mass ratio] 17.0 mg/mg 10-20 [facility] Work Phone: Laboratory - Hematology and Cell countson 05-18-2022 Erythrocyte distribution width (RBC) [Entitic vol] 38.4 fL 35.1-43.9 [facility] Work Phone: Erythrocyte distribution width (RBC) [Ratio] 15.5 % 11.6-14.6 [facility] Work Phone: Immature granulocytes/100 WBC (Bld) 0.300 % 0.0-0.9 [facility] Work Phone: Comment on above: IG% - Immature Granu locytes (promyelocytes, myelocytes and metamyelocytes) > 1% indicates that a LEFT SHIFT is Present. MCH (RBC) [Entitic mass] 20.8 pg 27.0-32.0 [facility] Work Phone: Nucleated RBC/100 WBC (Bld) [Ratio] 0 % 0-5 [facility] Work Phone: MCHC Auto (RBC) [Mass/Vol]on 05-18-2022 MCHC (RBC) [Mass/Vol] 29.6 g/dL 32-36 [facility] Work [facility]: No Panel Informationon 05-18 Estimated GFR (MDRD) Amer 95 mL/min >60 [facility] Work Phone: Comment on above: GFR Calc Estimated GFR (MDRD) Non-Af Amer 79 mL/min >60 [facility] Work Phone: Comment on above: Non- GFR Calc Thyroid Stimulating Hormone (TSH) 1.95 uIU/mL 0.358-3.74 [facility] Work Phone: Total Iron Binding Capacity 384 ug/dL 250-450 [facility] Work Phone: Platelets bldon 05-18-2022 Platelets (Bld) [#/Vol] 317 10*3/uL 150-450 [facility] Work Phone: Serum or plasma albumin nixon urement (mass/volume)on 05-18-2022 Albumin [Mass/Vol] 4.3 g/dL 3.2-5.0 [facility] Work Phone: Serum or plasma albumin/glob ulin mass ratioon 05-18-2022 Albumin/Globulin [Mass ratio] 1.3 {ratio} 0.9-2.4 [facility] Work Phone: Serum or plasma calcium nixon urement (mass/volume)on 05-18-2022 Calcium [Mass/Vol] 9.0 mg/dL 8.5-10.1 [facility] Work Phone: Serum or plasma cholesterol in HDL measurement (mass/volume)on 05-18-2022 Cholesterol in HDL [Mass/Vol] 37 mg/dL >40 [facility] Work Phone: Comment on above: The drugs N-Acetylcy steine and Metamizole may falsely depress this assay. Reference Range HDL <40 mg/dL Low HDL Cholesterol HDL >or= 60 mg/dL High HDL Cholesterol Serum or plasma cholesterol in VLDL measurement (mass/volume)on 05-18-2022 Cholesterol in VLDL [Mass/Vol] 20 mg/dL 5-40 [facility] Work Phone: Serum or plasma creatinine m easurement (mass/volume)on 05-18-2022 Creatinine [Mass/Vol] 1.06 mg/dL 0.70-1.30 [facility] Work Phone: Comment on above: The validity of the calculated GFR & GFRAA in patients over 70 years has not been determined. Clinical correlation is essential. Serum or plasma ferritin naty surement (mass/volume)on 05-18-2022 Ferritin [Mass/Vol] 30 ng/mL 26-388 [facility] Work Phone: Serum or plasma low density lipoprotein (LDL) cholesterol measurement (mass/volume)on 05-18-2022 Cholesterol in LDL [Mass/Vol] 44 mg/dL 0-130 [facility] Work Phone: Serum or plasma urea nitroge n measurement (mass/volume)on 05-18-2022 Urea nitrogen [Mass/Vol] 18 mg/dL 7-18 [facility] Work Phone: Thin prep Papanicolaou smear with manual screeningon 05-18-2022 Thin prep Papanicolaou smear with manual screening 15 U/L 15-37 [facility] Work Phone: Thin prep Papanicolaou smear with manual screening 6 5-15 [facility] Work Phone: CNOVon 12-26-2021 CNOV Office Visit (PODIWS) NGOC RODRIGUEZ ([id number]) 1970 M Date Time Provider Department 12/26/21 2:30 PM JERRY WARD PODIWS During your visit today, we recorded the following information about you: Sangeeta Yee MA 12/26/2021 2:45 PM Signed AMB ROOMING INTAKE FLOWSHEET DATA Risk Screening Do you have concerns about personal safety or safety in the home?: No Pain Pain Level: 3 Pain Location: Foot-Right Description: Stabbing/Not Incision Duration Amount of Time: 6 Duration Units: Months Frequency: Continuous Intervention/Comfort measure: Medication, Relaxation Patient presents with: Right Foot - New, bone spurs Jerry Makike, HUMA 12/26/2021 2:45 PM Signed Consultation requested by Dr. Mariee for an opinion regarding right heel pain. My final recommendations will be communicated back to the requesting physician by way of shared Medical record or letter to requesting physician via US mail. Initial Podiatric Office Visit: Chief Complaint: This 51 year old male who presents with chief complaint:right heel pain HPI Patient presents to clinic for evaluation of his right heel. Patient has been experiencing pain in the plantar medial heel for several months. Patient states the pain is present whenever he is on his foot for long periods of time. Patient has purchased over compression stockings for the pain and has tried good supportive shoes but nothing has helped. Patient has been off work for 2 months because of hand injury requiring surgery. Being off work has not helped Patient is diabetic and has been diagnosed for 12 years. Patient denies numbness or burning in his foot. PAIN EVALUATION 12/26/2021 1424 Pain Level: 3 Pain Location: Foot-Right Description: Stabbing/Not Incision Duration Amount of Time: 6 Duration Units: Months Frequency: Continuous Intervention/Comfort measure: Medication;Relaxatio n No results found for: HBA1C PCP: Gisel Mariee, TRIMMER [employer]TER No past medical history on file. Current Outpatient Medications Medication Sig - insulin detemir (LEVEMIR FLEXPEN SUBCUTANEOUS) Inject subcutaneously. - semaglutide (OZEMPIC) 0.25 mg or 0.5 mg(2 mg/1.5 mL) pen injector Inject 0.25 mg subcutaneously one time a week. - omeprazole (PRILOSEC) 20 mg capsule Take 20 mg by mouth once daily. - amLODIPine (NORVASC) 10 mg tablet Take 10 mg by mouth once daily. - losartan (COZAAR) 100 mg tablet Take 100 mg by mouth once daily. - metFORMIN (GLUCOPHAGE) 1,000 mg tablet Take 1,000 mg by mouth twice daily with meals. - sertraline (ZOLOFT) 100 mg tablet Take 100 mg by mouth once daily. - glimepiride (AMARYL) 4 mg tablet (Patient not taking: Reported on 12/26/2021 ) - VICTOZA 3-CARLOS 0.6 mg/0.1 mL (18 mg/3 mL) (Patient not taking: Reported on 12/26/2021 ) - amLODIPine (NORVASC) 5 mg tablet Take 1 tablet by mouth once daily. (Patient not taking: Reported on 12/26/2021 ) - mupirocin (BACTROBAN) 2 % ointment Apply 1 application to affected area twice daily. Location: fingers (Patient not taking: Reported on 12/26/2021 ) No current facility-administere d medications for this visit. ALLERGIES Allergen Reactions - Penicillins Unknown - Wellbutrin [Bupropi* Hives No past surgical history on file. No family history on file. Social History Tobacco Use - Smoking status: Current Every Day Smoker - Smokeless tobacco: Current User Types: Chew Substance Use Topics - Alcohol use: Not on file - Drug use: Not on file REVIEW OF SYSTEMS GENERAL: Negative for Malaise, significant weight loss, fever RESPIRATORY: Negative for cough, wheezing and shortness of breath CARDIOVASCULAR: Negative for chest pain, leg swelling and palpitations GI: Negative for abdominal discomfort, blood in stools or black stools and change in bowel habits : Negative for dysuria, frequency and incontinence MUSCULOSKELETAL: + right heel pain. SKIN: Negative for lesions, rash, and itching. HEMATOLOGY/LYMPHOLOG Y Negative for prolonged bleeding, bruising easily, and swollen nodes. ENDOCRINE: Negative for cold or heat intolerance, polyuria, polydipsia and goiter. NEURO: negative Physical Exam: Constitutional: Pt is a well developed 51 year old male who is alert, oriented and cooperative Eyes: Following during examination. No redness or drainage. Respiratory: RR normal and nonlabored. Even breathing. No evidence of distress or shortness of breath. Psychology: Patient is engaged during conversation. Normal affect and mood. Does not appear depressed or anxious during encounter. Vascular: Dorsalis pedis and posterior tibial pulses palpable as b/l Capillary Fill time < 5 seconds to digits 1-5 b/l Skin temperature warm to warm proximal to distal b/l Hair growth present to digits Neurological: intact light touch/epicritic sensation - tinel b/l intact protective sensation no signific (more content not included)... Normal [facility] Encounters Encounter Date Encounter Type Care Provider Facility Start: 11-27-2024 ambulatory [facility] Start: 11-23-2024 End: 11-23-2024 ambulatory [facility] Facility:[facility] Start: 04-26-2023 End: 04-26-2023 ambulatory [facility] Work Phone: Start: 04-26-2023 End: 04-26-2023 Patient encounter procedure [facility] Work Phone: Start: 10-24-2022 End: 10-24-2022 ambulatory [facility] Work Phone: Start: 10-24-2022 End: 10-24-2022 Patient encounter procedure [facility] Start: 05-21-2022 End: 05-21-2022 Patient encounter procedure [facility], Specimen Start: 05-18-2022 End: 05-18-2022 Patient encounter procedure [facility] Start: 12-25-2021 End: 12-25-2021 Discharged Recurring [facility] Procedures Date Procedure Procedure Detail Performing Clinician Measurement of occul t blood in stool specimen using immunoassay Immunizations Immunization Date Immunization Notes Care Provider Fa cility 11-06-2021 tetanus toxoid, redu senthil diphtheria toxoid, and acellular pertussis vaccine, adsorbed [facility] Payers Date Payer Category Payer Self-pay [id number] Unknown [id number] Unknown SELF PAY INSURANCE [id number] Unknown SELF PAY INSURANCE [id number] Unknown [id number] Unknown ANTHEM [id number] Unknown KALISPEL GRP *COLLECT SP* [id number] Unknown SELF INS BWC [employer] 4 [id number] Unknown [id number] Unknown [id number] Social History Date Type Detail Facility Start: 11-06-2021 End: 11-06-2021 Tobacco smoking status KYIS Unknown if ever smoked [facility] Start: 1970 Sex Assigned At Male [facility] Progress note 12-26-2021 Note Date & Type Note Facility 12-26-2021 Note HNO ID: [id number] Author: Sangeeta Yee MA Service: ? Author Type: Custom Decorating Consultant Type: Progress Notes Filed: 12/26/2021 2:45 PM Note Text: Per Dr. Ward, Ngoc was provided with Powerstep Original full length, size 10, and instructed/educated in its application, wear, and care. All questions were answered, and patient was able to demonstrate competence with the necessary skills to utilize the above equipment. Sangeeta Yee MA [facility] Progress note 12-26-2021 Note Date & Type Note Facility 12-26-2021 Note HNO ID: [id number] Author: Jerry Ward Service: ? Author Type: Physician Type: Progress Notes Filed: 12/26/2021 2:45 PM Note Text: Consultation requested by Dr. Mariee for an opinion regarding right heel pain. My final recommendations will be communicated back to the requesting physician by way of shared Medical record or letter to requesting physician via US mail. Initial Podiatric Office Visit: Chief Complaint: This 51 year old male who presents with chief complaint:right heel pain HPI Patient presents to clinic for evaluation of his right heel. Patient has been experiencing pain in the plantar medial heel for several months. Patient states the pain is present whenever he is on his foot for long periods of time. Patient has purchased over compression stockings for the pain and has tried good supportive shoes but nothing has helped. Patient has been off work for 2 months because of hand injury requiring surgery. Being off work has not helped Patient is diabetic and has been diagnosed for 12 years. Patient denies numbness or burning in his foot. PAIN EVALUATION 12/26/2021 1424 Pain Level: 3 Pain Location: Foot-Right Description: Stabbing/Not Incision Duration Amount of Time: 6 Duration Units: Months Frequency: Continuous Intervention/Comfort measure: Medication;Relaxation No results found for: HBA1C PCP: Gisel Mariee CNP No past medical history on file. Current Outpatient Medications Medication Sig - insulin detemir (LEVEMIR FLEXPEN SUBCUTANEOUS) Inject subcutaneously. - semaglutide (OZEMPIC) 0.25 mg or 0.5 mg(2 mg/1.5 mL) pen injector Inject 0.25 mg subcutaneously one time a week. - omeprazole (PRILOSEC) 20 mg capsule Take 20 mg by mouth once daily. - amLODIPine (NORVASC) 10 mg tablet Take 10 mg by mouth once daily. - losartan (COZAAR) 100 mg tablet Take 100 mg by mouth once daily. - metFORMIN (GLUCOPHAGE) 1,000 mg tablet Take 1,000 mg by mouth twice daily with meals. - sertraline (ZOLOFT) 100 mg tablet Take 100 mg by mouth once daily. - glimepiride (AMARYL) 4 mg tablet (Patient not taking: Reported on 12/26/2021 ) - VICTOZA 3-CARLOS 0.6 mg/0.1 mL (18 mg/3 mL) (Patient not taking: Reported on 12/26/2021 ) - amLODIPine (NORVASC) 5 mg tablet Take 1 tablet by mouth once daily. (Patient not taking: Reported on 12/26/2021 ) - mupirocin (BACTROBAN) 2 % ointment Apply 1 application to affected area twice daily. Location: fingers (Patient not taking: Reported on 12/26/2021 ) No current facility-administered medications for this visit. ALLERGIES Allergen Reactions - Penicillins Unknown - Wellbutrin [Bupropi* Hives No past surgical history on file. No family history on file. Social History Tobacco Use - Smoking status: Current Every Day Smoker - Smokeless tobacco: Current User Types: Chew Substance Use Topics - Alcohol use: Not on file - Drug use: Not on file REVIEW OF SYSTEMS GENERAL: Negative for Malaise, significant weight loss, fever RESPIRATORY: Negative for cough, wheezing and shortness of breath CARDIOVASCULAR: Negative for chest pain, leg swelling and palpitations GI: Negative for abdominal discomfort, blood in stools or black stools and change in bowel habits : Negative for dysuria, frequency and incontinence MUSCULOSKELETAL: + right heel pain. SKIN: Negative for lesions, rash, and itching. HEMATOLOGY/LYMPHOLOGY Negative for prolonged bleeding, bruising easily, and swollen nodes. ENDOCRINE: Negative for cold or heat intolerance, polyuria, polydipsia and goiter. NEURO: negative Physical Exam: Constitutional: Pt is a well developed 51 year old male who is alert, oriented and cooperative Eyes: Following during examination. No redness or drainage. Respiratory: RR normal and nonlabored. Even breathing. No evidence of distress or shortness of breath. Psychology: Patient is engaged during conversation. Normal affect and mood. Does not appear depressed or anxious during encounter. Vascular: Dorsalis pedis and posterior tibial pulses palpable as b/l Capillary Fill time < 5 seconds to digits 1-5 b/l Skin temperature warm to warm proximal to distal b/l Hair growth present to digits Neurological: intact light touch/epicritic sensation - tinel b/l intact protective sensation no significant neurological deficits Dermatological: Nails 1-5 b/l appear normal. Webspaces clean and dry 1-4 b/l. Skin appears well hydrated and supple. good color, texture, turgor. No open lesions present. No callosities present. Musculoskeletal/Orthopaedic: Patient has pain to palpation of right plantar medial calcaneal tubercle Foot type is neutral structurally AJ ROM is full with knee extended and flexed 1st MPJ is full when loaded and no pain or crepitus are noted with ROM. MTJ, STJ are full and free of pain and crepitus. +5/5 muscle strength dorsiflexion, plantarflexion, inversion, eversion b/l Radiographs: per rep (more content not included)... [facility] Progress note 12-26-2021 Note Date & Type Note Facility 12-26-2021 Note HNO ID: [id number] Author: Sangeeta Yee MA Service: ? Author Type: Custom Decorating Consultant Type: Progress Notes Filed: 12/26/2021 2:45 PM Note Text: AMB ROOMING INTAKE FLOWSHEET DATA Risk Screening Do you have concerns about personal safety or safety in the home?: No Pain Pain Level: 3 Pain Location: Foot-Right Description: Stabbing/Not Incision Duration Amount of Time: 6 Duration Units: Months Frequency: Continuous Intervention/Comfort measure: Medication, Relaxation Patient presents with: Right Foot - New, bone spurs [facility] Evaluation note Note Date & Type Note Facility Evaluation note No assessment information availa [facility] Work Phone: Summary Purpose Family History No Family History Records Found Relationship Condition Age at Onset Recorded Date/T glen mother Malignant neoplasm of pancreas Unknown Advance Directives No Advanced Directives Records Found Advance Directive Response Recorded Date/ Time Living Will No November 06 2:11pm Power of Slate Cutter Operator No November 06, 2021 2:11pm Advance Directive Response Recorded Date/ Time Living Will No November 06 1:11pm Power of Slate Cutter Operator No November 06, 2021 1:11pm Chief Complaint and Reason for Visit Chief Complaint RT THUMB SPLINT/ RX HERE Chief Complaint STOOL SAMPLE Additional Source Comments (unrecognized sect ion and content) No Status Records FoundNo Status Records FoundNo Status Records Found INFORMATION SOURCE (unrecogn ized section and content) DATE CREATED AUTHOR 01/10/2022 [facility] DATE CREATED AUTHOR AUTHOR'S ORGANIZ ATION 12/22/2022 [facility] DATE CREATED AUTHOR AUTHOR'S ORGANIZ ATION 12/10/2024 [facility] Goals (unrecognized section and content) Goals may be documented in a n alternate sectionGoals may be documented in an alternate sectionGoals may be documented in an alternate sectionGoals may be documented in an alternate sectionGoals may be documented in an alternate section Care Teams (unrecognized sec tion and content) Team Status: Active Member Role Status Dates [facility] Family Provider Active [facility] Primary Care Provider A ctive Team Status: Inactive Member Role Status Dates [facility] Primary Care Provider A ctive Dr. Ashu Rudd MD Attending Provider Active Team Status: Inactive Member Role Status Dates [facility] Primary Care Provider A ctive Jossy Long WRIST LINER, WRIST LINER-C Attending Provider, Rosario byrd Provider Active FOR RECORDS PERTAINING TO PATIENTS WHO ARE OR HAVE BEEN ENROLLED IN A CHEMICAL DEPENDENCY/SUBSTANCEABUSE PROGRAM, SOME INFORMATION MAY BE OMITTED. This clinical summary was aggregated from multiple sources. Caution should be exercised in using it in the provision of clinical care. This summary normalizes information from multiple sources, and as a consequence, information in this document may materially change the coding, format and clinical context of patient data. In addition, data may be omitted in some cases. CLINICAL DECISIONS SHOULD BE BASED ON THE PRIMARY CLINICAL RECORDS. [facility]. provides no warranty or guarantee of the accuracy or completeness of information in this document.
[2025-05-22 12:11] LABS: Hematocrit 37.4 % (40-54); Hemoglobin 11.9 g/dL (13.0-16.5); Immature Granulocytes Count 0.160 X10^3/uL (0.0-0.0); Mean Corp Hgb Conc 31.8 g/dL (32-36); Mean Corpuscular Volume 71.6 fL (80-94); Mean Platelet Vol. 9.1 fl (6.2-12.0); NRBC Flagged by Analyzer 0 % (0-5); Platelet Count 329 K/mm3 (150-450); RBC Distribution Width CV 16.3 % (11.6-14.6); RBC Distribution Width SD 40.7 fl (35.1-43.9); Red Blood Count 5.22 M/mm3 (4.6-6.2); White Blood Count 11.3 K/mm3 (4.4-11.0)
[2025-05-22 12:48] LABS: Anion Gap 15 (5-15); BUN 14 mg/dL (4-19); BUN/Creat Ratio 17.9 RATIO (10-20); Calcium,Total 10.1 mg/dL (7.6-11.0); Carbon Dioxide 20.9 mmol/L (21.0-32.0); Chloride 102 mmol/L (98-108); Glucose 184 mg/dL (70-99); Potassium 4.1 mmol/L (3.3-5.1)
== END | disposition home or self-care (01) ==
LOC: LAB.FUTURE 11:20 → LAB 13:08
PROVIDERS: PCP Nurse Practitioner Family; Referring Provider Nurse Practitioner Family; Visit Provider Nurse Practitioner Family
DX: D64.9 Anemia, unspecified (principal); N28.9 Disorder of kidney and ureter, unspecified
CPT/HCPCS: 36415; 80048; 85025

== ENCOUNTER → 2025-05-28 | Outpatient (CLI) | payer OTHER, SELFPAY ==
[2025-05-28 16:53] LABS: Ammonia 42.3 umol/L (16-60)
[2025-05-28 16:55] LABS: Hematocrit 35.8 % (40-54); Hemoglobin 11.3 g/dL (13.0-16.5); Immature Granulocytes Count 0.070 X10^3/uL (0.0-0.0); Mean Corp Hgb Conc 31.6 g/dL (32-36); Mean Corpuscular Volume 70.8 fL (80-94); Mean Platelet Vol. 9.2 fl (6.2-12.0); NRBC Flagged by Analyzer 0 % (0-5); Platelet Count 342 K/mm3 (150-450); RBC Distribution Width CV 16.4 % (11.6-14.6); RBC Distribution Width SD 41.1 fl (35.1-43.9); Red Blood Count 5.06 M/mm3 (4.6-6.2); White Blood Count 9.7 K/mm3 (4.4-11.0)
[2025-05-28 17:48] LABS: AST(SGOT) 20 U/L (<=37); Alanine Aminotransfer ALT/SGPT 20 U/L (<=46); Albumin, Serum 4.6 g/dL (3.5-5.0); Alkaline Phosphatase 132 U/L (40-129); Anion Gap 14 (5-15); BUN 17 mg/dL (4-19); BUN/Creat Ratio 19.2 RATIO (10-20); Calcium,Total 9.6 mg/dL (7.6-11.0); Carbon Dioxide 22.9 mmol/L (21.0-32.0); Chloride 102 mmol/L (98-108); Ferritin 351 ng/mL (37-417); Globulin 2.7 g/dL (2.2-4.2); Glucose 101 mg/dL (70-99); Iron 134 ug/dL (65-175); Iron Binding Capacity,Total 370 ug/dL (250-450); Iron Binding Capacity,Unsat 236 ug/dL (228-428); Potassium 3.6 mmol/L (3.3-5.1); Vitamin B12 400 pg/mL (180-914)
[2025-05-28 18:38] LABS: Cholesterol 133 mg/dL (<=200); Low Density Lipoprotein Calc. 15 mg/dL; Triglycerides 358 mg/dL; Very Low Density Lipoprotein 72 mg/dL (5-40); cholesterol:hdl ratio screen 2.85
[2025-05-30 08:08] LABS: GGTP 40 IU/L (0-65)
== END | disposition home or self-care (01) ==
LOC: LAB 15:39
PROVIDERS: PCP Nurse Practitioner Family; Referring Provider Nurse Practitioner Family; Visit Provider Nurse Practitioner Family
DX: R63.5 Abnormal weight gain (principal); R94.6 Abnormal results of thyroid function studies; E78.5 Hyperlipidemia, unspecified; D50.9 Iron deficiency anemia, unspecified; E53.8 Deficiency of other specified B group vitamins
CPT/HCPCS: 36415; 80053; 80061; 82140; 82607; 82728; 82977; 83540; 83550; 84439; 84443; 85025

== ENCOUNTER 2025-09-09 09:05 | Observation (INO) | payer OTHER, SELFPAY ==
[2025-09-09] VITALS (23 sets, daily range): BP systolic 88–154; BP diastolic 64–121; PULSE 79–161; RESP 14–23; TEMP 36.6–37.1; O2SAT 94–100; BMI 25.4; BMI 22.8
--- NOTE | 2025-09-09 09:18 | EDS_ITS ---
HPI History of Present Illness Chief Complaint: Palpitations Narrative Narrative: 54-year-old male past medical history of diabetes, hypercholesterolemia, hypothyroidism presents from the [facility] clinic with heart palpitations. He states that he has had intermittent chest pain over the last month as well as a rapid heart rate that has been somewhat constant. He has an occasional cough but states that he is short of breath and can feel his heart racing especially when he tries to lay down at night. He denies any leg swelling. No exacerbating or alleviating factors, no prior SVT diagnosis. [facility] Medical History Wears glasses Open wound Gastric reflux History of diverticulitis Hyperlipidemia Hypertension Diabetes Home Medications ?Medication ?Instructions ?Recorded ?Last Taken ?Type amlodipine 5 mg tablet 5 mg PO DAILY 12/20/18 Unkno wn History losartan 25 mg tablet 100 mg PO DAILY 12/20/18 Unk nown History metformin 1,000 mg tablet 1,000 mg PO BID 12/20/18 History omeprazole 20 mg capsule,delayed 20 mg PO DAILY Unknown History release sertraline 100 mg tablet (Zoloft) 100 mg PO DAILY 12/09 Unknown History atorvastatin 10 mg tablet 10 mg PO DAILY 11/06/21 Unkn own History clindamycin HCl 150 mg capsule 300 mg (2 x 150 mg) PO 4X/DAY #80 11/06/21 11/06/21 Rx caps hydrocodone-acetaminophen 5-325mg 1 tab PO Q6H PRN fabienne n 3 days #10 11/06/21 11/06/21 Rx 5mg-325mg tabs insulin detemir U-100 100 unit/mL 60 unit subcut DAILY 11/06/21 11/06/21 History (3 mL) subcutaneous pen (Levemir FlexTouch U-100 Insulin) pioglitazone 15 mg tablet 15 mg PO DAILY 11/06/2110/21 History Allergy/AdvReac Type Severity Reaction Status Date / Time bupropion (From Wellbutrin) Allergy Hives Verified 09/09/25 09:06 Penicillins Allergy Swelling Verified 09/09/25 09:06 Family History Mother Pancreatic cancer Surgical History History of colon surgery History of appendectomy Social History adopted: No household members: other housing: house number of children: 2 current occupational status: employed current occupation: factory maintenance manager current occupational exposures/hazards: Yes (current occupational injury) pets and animals: No history of recent travel: No Smoking Status: Current every day smoker tobacco type: cigarettes Tobacco: How many years used: 35 Smokeless tobacco user: chewing tobacco and snuff ROS ROS ED ROS Narrative Review of systems positive for heart palpitations. Occasional cough with shortness of breath. Intermittent chest pain x 1 month. No leg swelling. No exacerbating or alleviating factors. EXAM Physical Exam Narrative Exam Narrative: Afebrile. Vital signs noted. Nontoxic-appearing. Cardiovascular examination reveals positive tachycardia, almost regular. Lungs clear to auscultation bilaterally. Abdomen soft and nontender with positive bowel sounds, no guarding or rebound. Neurological examination nonfocal, nonlateralizing. No pedal edema noted on examination. Const Vital Signs: 09/09/25 09:06 09/09/25 09:07 09/09/25 09:17 Temperature 98 F Temperature Source Temporal Pulse Rate 82 79 Respiratory Rate 14 Blood Pressure 154/88 H Blood Pressure Mean 110 Blood Pressure Source Blood Pressure Position Blood Pressure Location Pulse Ox 98 98 Oxygen Delivery Method Nasal Cannula Oxygen Flow Rate (L/min) 2 09/09/25 09:59 09/09/25 10:30 09/09/25 11:00 Temperature Temperature Source Pulse Rate 161 H 158 H 158 H Respiratory Rate 14 20 H 21 H Blood Pressure 123/87 H 140/121 H 129/97 H Blood Pressure Mean 99 127 107 Blood Pressure Source Monitor Monitor Monitor Blood Pressure Position Supine Blood Pressure Location Left Arm Pulse Ox 100 100 96 Oxygen Delivery Method Nasal Cannula Nasal Cannula Room Air Oxygen Flow Rate (L/min) 2 2 09/09/25 11:02 Temperature 98.3 F Temperature Source Pulse Rate 157 H Respiratory Rate 22 H Blood Pressure 129/97 H Blood Pressure Mean 107 Blood Pressure Source Blood Pressure Position Blood Pressure Location Pulse Ox 98 Oxygen Delivery Method Oxygen Flow Rate (L/min) MDM MDM MDM Narrative Medical decision making narrative: The differential diagnosis includes but not limited to sinus tachycardia versus atrial fibrillation versus atrial flutter versus paroxysmal SVT. Given his chest pain, I do feel troponins are indicated. EKG was obtained and interpreted by myself independently as atrial flutter with 2-1 conduction at 161 bpm but no acute ST changes. He may have slight ST depression laterally however. I reviewed an EKG from 2012 that he brought with him which showed sinus tachycardia. Given that this is his first episode of rapid heart rate and palpitations, I will administer adenosine 6 mg to see his underlying rhythm which I suspect would be atrial flutter. Administration of 6 of adenosine intravenously did appear to be atrial flutter on the monitor. He returned to an elevated heart rate in the 150s to 160s. He will be started on a Cardizem drip after IV bolus of 10 mg. I reviewed his laboratory work and he has a white count that is normal at 10.3 with hemoglobin 11.4, platelet count 319. BMP is remarkable for anion gap elevated 18 but he has normal sodium, potassium, chloride, and carbon dioxide. BUN normal at 17 and creatinine 1.05, glucose 139. High-sensitivity troponin is elevated at 42, but I feel that this is most likely a troponin leak from his rapid heart rate that he has had probably for the last few weeks to 1 month. TSH is elevated at 5.52 consistent with his hypothyroidism. In review of prior labs, he has had elevated TSH in the past as well. Chest x-ray interpreted by myself independently shows no evidence of an acute process, no pneumonia or pneumothorax. I reviewed the radiology report which confirms my independent interpretation. He has been on a Cardizem drip at 5 mg/h. As I feel this needs to be titrated up, I do feel that he needs admission for rate control. Patient will be discussed with the hospitalist for admission. Hospitalist requested I speak with cardiology regarding rate control. I discussed patient with Dr. Valentino who recommended at least 2 doses of IV metoprolol 5 minutes apart and then oral metoprolol while on the Cardizem drip. Dr. Doll has excepted him and we will see him on the floor/PCU stepdown. He is in stable condition. History & Record Review Discussion w/independent historian: Patient Additional record(s) reviewed:: Prior labs Lab Data Attestation: I reviewed the patient's lab results. Labs: Laboratory Results - last 24 hr 09/09/25 09:20 WBC 10.3 RBC 4.75 Hgb 11.4 L Hct 36.9 L MCV 77.7 L MCH 24.0 L MCHC 30.9 L RDW Std Deviation 51.1 H RDW Coeff of [place] 19.0 H Plt Count 319 MPV 9.1 Immature Gran % (Auto) 0.600 Neut % (Auto) 56.6 Lymph % (Auto) 31.7 [place] % (Auto) 9.3 Eos % (Auto) 0.9 Baso % (Auto) 0.9 Absolute Neuts (auto) 5.8 Absolute Lymphs (auto) 3.26 Nucleated RBC % 0 Sodium 138 Potassium 3.4 Chloride 99 Carbon Dioxide 21.4 Anion Gap 18 H BUN 17 Creatinine 1.05 Estim Creat Clear Calc 90.33 Est GFR (MDRD) Non-Af 85 BUN/Creatinine Ratio 15.7 Glucose 139 H Calcium 9.1 Troponin T High Sens 42 H TSH 5.520 H Radiography Chest X-Ray - ED: 1 View, Read by ED Physician, Read by Radiologist and No Acute Disease Diagnostic Testing: Clinical Impression(s) from Imaging Studies Chest X-Ray 09/09/25 09:48 IMPRESSION: No acute process is identified in the chest. Reading Location: [facility] Management Discussion w/another healthcare provider: Hospitalist (Dr. Doll) and Scalemaker (Cardiology, Dr. Valentino) Discharge Plan Dx/Rx/DC Orders Clinical Impression: Atrial flutter with rapid ventricular response, Elevated troponin, Chest pain, Palpitations Disposition Disposition: Acute Care Hospital [facility]
[2025-09-09] MEDS: Adenosine 6 MG/2 ML Syringe IV (09:19)
[2025-09-09 09:38] LABS: Hematocrit 36.9 % (40-54); Hemoglobin 11.4 g/dL (13.0-16.5); Immature Granulocytes Count 0.060 X10^3/uL (0.0-0.0); Mean Corp Hgb Conc 30.9 g/dL (32-36); Mean Corpuscular Volume 77.7 fL (80-94); Mean Platelet Vol. 9.1 fl (6.2-12.0); NRBC Flagged by Analyzer 0 % (0-5); Platelet Count 319 K/mm3 (150-450); RBC Distribution Width CV 19.0 % (11.6-14.6); RBC Distribution Width SD 51.1 fl (35.1-43.9); Red Blood Count 4.75 M/mm3 (4.6-6.2); White Blood Count 10.3 K/mm3 (4.4-11.0)
--- NOTE | 2025-09-09 09:48 | RAD_ITS ---
PROCEDURE: CHEST 1 VIEW (PORTABLE) 09/09/2025 REASON FOR EXAM: CHEST PAIN TECHNIQUE: Frontal view of the chest. COMPARISON: November 06, 2021 FINDINGS: Heart size and mediastinal configuration are within normal limits. There is no focal infiltrate or consolidation. There is no pneumothorax or effusion. There is no acute bony abnormality. Aortic calcifications are visible. RAD/Chest 1 View (Portable) IMPRESSION: No acute process is identified in the chest. Reading Location: [facility]
[2025-09-09] MEDS: Diltiazem 125 MG in Dextrose 5%-Water (100mL Bag) 100 ML IV (09:59)
[2025-09-09 10:00] LABS: Anion Gap 18 (5-15); BUN 17 mg/dL (4-19); BUN/Creat Ratio 15.7 RATIO (10-20); Calcium,Total 9.1 mg/dL (7.6-11.0); Carbon Dioxide 21.4 mmol/L (21.0-32.0); Chloride 99 mmol/L (98-108); Estimated Creatinine Clearance 90.33 ml/min (50-250); Glucose 139 mg/dL (70-99); Potassium 3.4 mmol/L (3.3-5.1); Troponin T High Sensitivity 42 ng/L (<=22)
--- NOTE | 2025-09-09 11:21 | PCM.HP.STD ---
HPI - General General Date of Admission: 09/09/25 Date of Service: 09/09/25 Chief Complaint: palpitations HPI Narrative NGOC RODRIGUEZ, is a 54 M with pmhx DMt2, HTN, HLD, hypothyroidism who presents to the ER with palpitations. He has had intermittent CP, SOB, palpitations for the past month. He was seeing his PCP at [facility] today when he was found to have rapid heart rate and subsequently was sent to the ER. In the ER he had an EKG showing Aflutter with a rate of 160. He was given adenosine with no sustained improvement but underlying rhythm appeared to be aflutter. Cardiology was contacted by the ED. He was started on cardizem and given IV lopressor with some improvement in his heart rate. He is currently resting comfortably in bed with no complaints - denies CP, SOB, palpitations, LH/dizziness, LE edema. [facility] Medical History Wears glasses Open wound Gastric reflux History of diverticulitis Hyperlipidemia Hypertension Diabetes Home Medications ?Medication ?Instructions ?Recorded ?Last Taken ?Type amlodipine 5 mg tablet 5 mg PO DAILY 12/20/18 Unknown History losartan 25 mg tablet 100 mg PO DAILY 12/20/18 Unknown History metformin 1,000 mg tablet 1,000 mg PO BID 12/20/18 11/06/21 History omeprazole 20 mg capsule,delayed 20 mg PO DAILY 12/20/18 Unknown History release sertraline 100 mg tablet (Zoloft) 100 mg PO DAILY 12/20/18 Unknown History atorvastatin 10 mg tablet 10 mg PO DAILY 11/06/21 Unknown History clindamycin HCl 150 mg capsule 300 mg (2 x 150 mg) PO 4X/DAY #80 11/06/21 11/06/21 Rx caps hydrocodone-acetaminophen 5-325mg 1 tab PO Q6H PRN pain 3 days #10 11/06/21 11/06/21 Rx 5mg-325mg tabs insulin detemir U-100 100 unit/mL 60 unit subcut DAILY 11/06/21 11/06/21 History (3 mL) subcutaneous pen (Levemir FlexTouch U-100 Insulin) pioglitazone 15 mg tablet 15 mg PO DAILY 11/06/21 11/06/21 History Allergy/AdvReac Type Severity Reaction Status Date / Time bupropion (From Wellbutrin) Allergy Hives Verified 09/09/25 09:06 Penicillins Allergy Swelling Verified 09/09/25 09:06 Family History Mother Pancreatic cancer Surgical History History of colon surgery History of appendectomy Social History adopted: No household members: other housing: house number of children: 2 current occupational status: employed current occupation: pack worker current occupational exposures/hazards: Yes (current occupational injury) pets and animals: No history of recent travel: No Smoking Status: Current every day smoker tobacco type: cigarettes Tobacco: How many years used: 35 Smokeless tobacco user: chewing tobacco and snuff ROS Constitutional Constitutional: Denies chills, fatigue or fever(s) Cardiovascular Cardiovascular: Reports chest pain, palpitations and rapid heart rate; Denies edema, lightheadedness or syncope Respiratory/Chest Respiratory/Chest: Reports shortness of breath at rest; Denies cough or wheezing Gastrointestinal Gastrointestinal: Denies abdominal pain, diarrhea, nausea or vomiting Musculoskeletal Musculoskeletal: Denies arthralgias Neurologic Neurologic: Reports dizziness; Denies abnormal speech or confusion Psychiatric Psychiatric: Denies anxiety or depression Endocrine Endocrinology: Denies change in body appearance Hematologic/Lymphatic Hematologic/Lymphatic: Reports anemia Allergic/Immunologic Allergic/Immunologic: Denies rhinitis Vital Signs Vital Signs Vital Signs: 09/09/25 09:06 09/09/25 09:07 09/09/25 09:17 Temperature 98 F Temperature Source Temporal Pulse Rate 82 79 Respiratory Rate 14 Blood Pressure 154/88 H Blood Pressure Mean 110 Blood Pressure Source Blood Pressure Position Blood Pressure Location Pulse Ox 98 98 Oxygen Delivery Method Nasal Cannula Oxygen Flow Rate (L/min) 2 09/09/25 09:59 09/09/25 10:30 09/09/25 11:00 Temperature Temperature Source Pulse Rate 161 H 158 H 158 H Respiratory Rate 14 20 H 21 H Blood Pressure 123/87 H 140/121 H 129/97 H Blood Pressure Mean 99 127 107 Blood Pressure Source Monitor Monitor Monitor Blood Pressure Position Supine Blood Pressure Location Left Arm Pulse Ox 100 100 96 Oxygen Delivery Method Nasal Cannula Nasal Cannula Room Air Oxygen Flow Rate (L/min) 2 2 09/09/25 11:02 Temperature 98.3 F Temperature Source Pulse Rate 157 H Respiratory Rate 22 H Blood Pressure 129/97 H Blood Pressure Mean 107 Blood Pressure Source Blood Pressure Position Blood Pressure Location Pulse Ox 98 Oxygen Delivery Method Oxygen Flow Rate (L/min) Weight Weight: 85.2 kg Body Mass Index (BMI) 25.4 Physical Exam Const alert, oriented x3 and no apparent distress HEENT normocephalic and head/scalp atraumatic Eyes PERRL Neck no lymphadenopathy Resp normal respiratory effort, no retractions, no use of accessory muscles and clear to auscultation bilaterally Cardio no murmurs Cardio Narrative: irregularly irreg, tachy GI normal to inspection, nondistended, normoactive bowel sounds, soft to palpation and non-tender Extremity normal to inspection, full ROM and no clubbing, cyanosis or edema Neuro oriented x3 Psych affect normal Results Lab / Micro Data 09/09/25 09:20 09/09/25 09:20 Labs: Laboratory Results - last 24 hr 09/09/25 09:20: WBC 10.3, RBC 4.75, Hgb 11.4 L, Hct 36.9 L, MCV 77.7 L, MCH 24.0 L, MCHC 30.9 L, RDW Std Deviation 51.1 H, RDW Coeff of Lavon 19.0 H, Plt Count 319, MPV 9.1, Immature Gran % (Auto) 0.600, Neut % (Auto) 56.6, Lymph % (Auto) 31.7, [place] % (Auto) 9.3, Eos % (Auto) 0.9, Baso % (Auto) 0.9, Absolute Neuts (auto) 5.8, Absolute Lymphs (auto) 3.26, Nucleated RBC % 0, Sodium 138, Potassium 3.4, Chloride 99, Carbon Dioxide 21.4, Anion Gap 18 H, BUN 17, Creatinine 1.05, Estim Creat Clear Calc 90.33, Est GFR (MDRD) Non-Af 85, BUN/Creatinine Ratio 15.7, Glucose 139 H, Calcium 9.1, Troponin T High Sens 42 H, TSH 5.520 H Imaging Radiology Impression Chest X-Ray 09/09/25 09:48 IMPRESSION: No acute process is identified in the chest. Reading [facility] Assessment & Plan Assessment/Plan (1) Atrial flutter with rapid ventricular response: PLAN: 1. Aflutter - no prior hx. EKG with rate 160 and aflutter. Per ER adenosine administered and underlying rhythm was aflutter. cardiology aware. improving with cardizem drip and metoprolol. continue drip and start metoprolol oral. pt will be anticoagulated with lovenox with plan to transition to PO at dc. obtained Echocardiogram in AM. 2. Indeterminate troponin with hx CP recently - cycle enzymes, repeat EKG in am. cardiology following. 3. HTN - hold losartan, started on cardizem and metoprolol. 4. Hx DMt2 - on levemir, metformin and pioglitazone. add SSI at this time. 5. Hx hypothyroidism - TSH mildly elevated - check FT4 6. Hx HLD - on statin 7. Hx alcohol use - self reported use of 2-3 drinks per day per pt, monitor for w/d symptoms. 8. Hx nicotine abuse - smokes 1ppd, add patch if desired. 9. Hx GERD - on PPI DVT ppx: lovenox This patient was seen by Jatinder Irwin PA-C, under the supervision of Dr. Doll. (2) Elevated troponin: (3) Chest pain: (4) Palpitations:
--- NOTE | 2025-09-09 11:57 | ECHOCS_ITS ---
Reason For Study Reason For Study: AFIB Procedure This was a 2D Doppler, Color Flow transthoracic echocardiogram. The study was technically difficult. Contrast injection was performed. Exam performed portable in ICU/CCU. Left Ventricle Normal LV size. Normal left ventricular thickness. The estimated ejection fraction is 40 %. Normal diastology for age. Right Ventricle Normal size and thickness. Normal systolic function. Atria Normal left atrium. Normal right atrium. Mitral Valve The mitral valve is structurally normal. No prolapse or stenosis seen. Tricuspid Valve Unable to estimate RV systolic pressure due to inadequate jet, pulmonary artery pressure probably normal. Aortic Valve The aortic valve is not well visualized. Pulmonic Valve Trivial pulmonic valve insufficiency. Great Vessels Normal sized aortic root. Pericardium/Pleural No pericardial effusion. Medication Diluted definity 4ml given slow IV push to enhance endocardial definition. MMode/2D Measurements & Calculations LVIDd: 5.6 cm IVSd: 1.2 cm Ao root diam: 3.6 cm LVIDs: 4.1 cm LVPWd: 1.3 cm FS: 27.0 % LAV(MOD-bp): 43.1 ml LVAd ap4: 43.8 cm2 SV(MOD-sp4): 75.5 ml LAV(MOD-bp) Indexed: 21.8 ml/m2 LVLd ap4: 9.1 cm SI(MOD-sp4): 38.2 ml/m2 LAV(MOD-sp2): 35.1 ml EDV(MOD-sp4): 174.3 ml LAV(MOD-sp4): 44.9 ml EDV(sp4-el): 178.7 ml LVAs ap4: 30.9 cm2 LVLs ap4: 8.4 cm ESV(MOD-sp4): 98.8 ml ESV(sp4-el): 96.4 ml EF(MOD-sp4): 43.3 % EF(sp4-el): 46.1 % SV(sp4-el): 82.3 ml LA A4 area: 17.1 cm2 LA dimension(2D): 4.2 cm RA A4 area: 13.8 cm2 Time Measurements MV dec time: 0.20 sec Doppler Measurements & Calculations MV E max emre: 58.7 cm/sec Lat Peak E' Emre: 11.8 cm/sec Med Peak E' Emre: 6.2 cm/sec MV A max emre: 54.2 cm/sec E/E' lat: 5.0 E/E' med: 9.5 MV E/A: 1.1 MV V2 max: 72.9 cm/sec MV dec slope: 300.4 cm/sec2 Ao V2 max: 144.3 cm/sec MV max P.1 mmHg Ao max P.3 mmHg MV V2 mean: 48.3 cm/sec Ao V2 mean: 96.1 cm/sec MV mean P.0 mmHg Ao mean P.3 mmHg MV V2 VTI: 22.9 cm Ao V2 VTI: 24.7 cm AV (velocity ratio): 1.00 LV V1 max: 136.7 cm/sec PA V2 max: 66.6 cm/sec LV V1 max P.5 mmHg PA V2 mean: 50.4 cm/sec LV V1 mean P.2 mmHg LV V1 mean: 95.1 cm/sec LV V1 VTI: 24.6 cm ECHO/Echo Complete W/ Contrast Interpretation Summary Top normal ventricular size with mild to moderate global systolic dysfunction w ith pressure around 40 to 45% No significant valvular pathology with normal biatrial size Normal LV diastolic function. Normal RV size and function Ordering Physician: Chapin Doll Referring Physician: RAMIREZ SHAW Performed By: Norma Fairbanks RCS
[2025-09-09 12:17] LABS: Troponin T High Sens 2 HR 36 ng/L (<=22)
--- NOTE | 2025-09-09 13:31 | PCM.CONS.C ---
Assessment & Plan Assessment/Plan (1) Palpitations: PLAN: Very likely related to his atrial flutter and discussed with the patient in length correlation with his daily EtOH use. Will obtain an echocardiogram to assess LV size and function and ruled out any valvular abnormalities. TSH is elevated but free T4 is normal 1.2. He responded well to beta-blockers for which we will continue oral metoprolol 25 mg twice daily and discontinue amlodipine. [id number] score of 2 based on diabetes and hypertension for which we will initiate at least short-term anticoagulation with Eliquis 5 mg twice daily and place a classroom monitor prior to discharge to ensure stability of sinus rhythm with clinical follow-up in the office to determine the stability of his rhythm versus the need for catheter-based ablation in the future (2) Chest pain: PLAN: Likely related to the above arrhythmia for which we will continue beta-blockers. Troponins are borderline elevated nonspecific, 42/36. Depending on LV size and function will dictate the need for stress testing specially with his diabetic status but may consider pharmacological stress test in a.m. prior to discharge (3) Elevated troponin: PLAN: Likely nonspecific secondary to the above arrhythmia but due to the underlying 15-year history of diabetes mellitus, will obtain pharmacological stress test prior to discharge (4) Atrial flutter with rapid ventricular response: PLAN: As above will initiate beta-blockers, check echocardiogram and he is currently converted to sinus rhythm for which we will discontinue intravenous diltiazem and maintain oral beta-blockers. Also initiate anticoagulation with Eliquis 5 mg twice daily for the time being till future decisions regarding catheter-based ablation versus watchful waiting. However clearly instructed the patient to discontinue EtOH use (5) Diabetes: PLAN: Fair control we will continue the current medical regimen (6) Hyperlipidemia: PLAN: LDL of 15 which is acceptable (7) Hypertension: PLAN: Continue current losartan due to the underlying diabetic status, creatinine is within normal limits 1.0 however we will add beta-blockers in the form of metoprolol while we discontinue amlodipine. On the long-term SGL 2 receptor antagonist would be beneficial here as opposed to pioglitazone regarding cardiovascular/renal benefits HPI Consult Data Date of Consult: 09/09/25 HPI Narrative Reason for Consultation: Atrial flutter HPI Narrative: NGOC RODRIGUEZ, is a 54 M who presents with symptomatic jitteriness, anxiety feeling, palpitations of at least 2 weeks duration however while in the doctor office was identified to be in rapid heart rate and in the ER was in atrial flutter and rapid ventricular response 150-160. Received adenosine without response then received diltiazem intravenously without response then was given 2 boluses of IV metoprolol with good response and then received oral metoprolol and while he is in the ICU converted to sinus rhythm. He has underlying diabetes mellitus of at least 15 years duration. And admits to daily tobacco use and daily EtOH use in the form 2-3 cocktails daily. He denies any previous documented CAD, arrhythmia, CVA or TIA. He admits to poor dietary discretion but A1c 7.1 on metformin/pioglitazone ] He denies any recent travel, tick bite, bleeding problems. He denies any swelling lower extremities or claudication. He denies any ingestion of [id number] medications. [facility] Medical History (Updated 09/09/25 @ 13:[address] Kehinde Valentino MD) Wears glasses Open wound Gastric reflux History of diverticulitis Hyperlipidemia Hypertension Diabetes Home Medications ?Medication ?Instructions ?Recorded ?Last Taken ?Type amlodipine 5 mg tablet 5 mg PO DAILY 12/20/18 Unknown History losartan 25 mg tablet 100 mg PO DAILY 12/20/18 Unknown History metformin 1,000 mg tablet 1,000 mg PO BID 12/20/18 11/06/21 History omeprazole 20 mg capsule,delayed 20 mg PO DAILY 12/20/18 Unknown History release sertraline 100 mg tablet (Zoloft) 100 mg PO DAILY 12/20/18 Unknown History atorvastatin 10 mg tablet 10 mg PO DAILY 11/06/21 Unknown History clindamycin HCl 150 mg capsule 300 mg (2 x 150 mg) PO 4X/DAY #80 11/06/21 11/06/21 Rx caps hydrocodone-acetaminophen 5-325mg 1 tab PO Q6H PRN pain 3 days #10 11/06/21 11/06/21 Rx 5mg-325mg tabs insulin detemir U-100 100 unit/mL 60 unit subcut DAILY 11/06/21 11/06/21 History (3 mL) subcutaneous pen (Levemir FlexTouch U-100 Insulin) pioglitazone 15 mg tablet 15 mg PO DAILY 11/06/21 11/06/21 History Allergy/AdvReac Type Severity Reaction Status Date / Time bupropion (From Wellbutrin) Allergy Hives Verified 09/09/25 09:06 Penicillins Allergy Swelling Verified 09/09/25 09:06 Family History Mother Pancreatic cancer no significant family history Surgical History History of colon surgery History of appendectomy Surgical History no surgical history no surgical history Social History adopted: No household members: other housing: house number of children: 2 current occupational status: employed current occupation: dining service worker current occupational exposures/hazards: Yes (current occupational injury) pets and animals: No history of recent travel: No Smoking Status: Current every day smoker tobacco type: cigarettes Tobacco: How many years used: 35 Smokeless tobacco user: chewing tobacco and snuff ROS ROS Narrative Most of the review of system is nonrevealing except for the above HPI. He uses Zoloft and omeprazole for symptoms of GERD Constitutional Constitutional: Reports systems reviewed and no addt'l complaints, except as documented Eyes Eyes: Reports systems reviewed and no addt'l complaints, except as documented ENT HEENT: Reports systems reviewed and no addt'l complaints, except as documented Cardiovascular Cardiovascular: Reports systems reviewed and no addt'l complaints, except as documented and as per HPI Respiratory/Chest Respiratory/Chest: Reports as per HPI Gastrointestinal Gastrointestinal: Reports systems reviewed and no addt'l complaints, except as documented Genitourinary Genitourinary: Reports systems reviewed and no addt'l complaints, except as documented Physical Exam Const alert and oriented x3 Orientation / Consciousness: awake HEENT normocephalic and head/scalp atraumatic Eyes PERRL and EOMs intact bilaterally Neck full ROM and no lymphadenopathy Lymph Lymphatic: no lymphadenopathy noted Chest inspection of chest normal Resp normal respiratory effort and clear to auscultation bilaterally Cardio regular rate and regular rhythm Palpation: normal PMI Rate: regular rate GI normal to inspection, nondistended, normoactive bowel sounds no CVA tenderness Back/Spine no CVA tenderness Extremity normal to inspection and full ROM Skin no rashes or lesions noted Neuro Neuro Narrative: Alert awake oriented x 3 without any focal deficits Psych mental status grossly normal Objective Data Vital Signs: Vital Signs Temp Pulse Resp BP Pulse Ox O2 Del Method O2 Flow Rate 98.3 F 83 14 88/64 L 96 Room Air 2 09/09/25 11:02 09/09/25 12:54 09/09/25 12:54 09/09/25 12:54 09/09/25 12:54 09/09/25 12:54 09/09/25 10:30 Oxygen Flow Rate (L/min) 2 Oxygen Delivery Method Room Air Weight: 168 lb 12.8 oz Body Mass Index (BMI) 22.8 Intake & Output: Intake and Output for Last 24 Hours 09/07/25 09/08/25 09/09/25 23:59 23:59 23:59 Intake Total 36.08 / 36.08 Balance 36.08 / 36.08 Lab / Micro Data 09/09/25 09:20 09/09/25 09:20 Labs: Laboratory Results - last 24 hr 09/09/25 09:20: WBC 10.3, RBC 4.75, Hgb 11.4 L, Hct 36.9 L, MCV 77.7 L, MCH 24.0 L, MCHC 30.9 L, RDW Std Deviation 51.1 H, RDW Coeff of [place] 19.0 H, Plt Count 319, MPV 9.1, Immature Gran % (Auto) 0.600, Neut % (Auto) 56.6, Lymph % (Auto) 31.7, [place] % (Auto) 9.3, Eos % (Auto) 0.9, Baso % (Auto) 0.9, Absolute Neuts (auto) 5.8, Absolute Lymphs (auto) 3.26, Nucleated RBC % 0, Sodium 138, Potassium 3.4, Chloride 99, Carbon Dioxide 21.4, Anion Gap 18 H, BUN 17, Creatinine 1.05, Estim Creat Clear Calc 90.33, Est GFR (MDRD) Non-Af 85, BUN/Creatinine Ratio 15.7, Glucose 139 H, Calcium 9.1, Troponin T High Sens 42 H, TSH 5.520 H 09/09/25 11:35: Troponin T Hi Sens 2 Hr 36 H, Free T4 1.20 09/09/25 12:02: POC Glucose 87 Cardiology Labs/Tests 09/09/25 09:20: WBC 10.3, RBC 4.75, Hgb 11.4 L, Hct 36.9 L, MCV 77.7 L, MCH 24.0 L, MCHC 30.9 L, Plt Count 319, MPV 9.1, Immature Gran % (Auto) 0.600, Neut % (Auto) 56.6, Lymph % (Auto) 31.7, [place] % (Auto) 9.3, Eos % (Auto) 0.9, Baso % (Auto) 0.9, Absolute Neuts (auto) 5.8, Nucleated RBC % 0, Sodium 138, Potassium 3.4, Chloride 99, Carbon Dioxide 21.4, Anion Gap 18 H, BUN 17, Creatinine 1.05, Est GFR (MDRD) Non-Af 85, BUN/Creatinine Ratio 15.7, Glucose 139 H, Calcium 9.1 Rhythm: EKG: ECHO: Stress Test: Cardiac Cath: PCI: CT Surgery: Holter monitor: EPS: PPM: CXR: Chest CT Scan: Radiography Diagnostic Testing: Radiology Impression Chest X-Ray 09/09/25 09:48 IMPRESSION: No acute process is identified in the chest. Reading Location: [facility] Risk Score for UA/STEMI Assesmment (YES = 1) Risk Stratification Applicable: No
[2025-09-09 14:36] LABS: Troponin T High Sens 4 HR 38 ng/L (<=22)
--- OUTSIDE RECORDS SUMMARY | 2025-09-09 15:24 | XMS RPT_ITS | CCD ---
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 [#/Vol] 5.06 10*6/uL 4.6-6.2 [facility] Screening total cholesterol/ high density lipoprotein (HDL) cholesterol ratioOrdered By: Anahy Martinez on 05-28-2025 Cholesterol.total/Choles terol in HDL [Mass ratio] 2.85 {ratio} [facility] Serum creatinine measurement (mass/volume)Ordered By: Anahy Martinez on 05-28-2025 Creatinine [Mass/Vol] 0.87 mg/dL 0.70-1.20 [facility] Serum globulin measurementOr dered By: Anahy Martinez on 05-28-2025 Globulin (S) [Mass/Vol] 2.7 g/dL 2.2-4.2 [facility] Serum glucose measurement (m ass/volume)Ordered By: Anahy Martinez on 05-28-2025 Glucose [Mass/Vol] 101 mg/dL High 70-99 [facility] Serum or plasma alanine ferrari otransferase (ALT) measurementOrdered By: Anahy Martinez on 05-28-2025 ALT [Catalytic activity/Vol] 20 U/L <47 [facility] Serum or plasma albumin nixon urement (mass/volume)Ordered By: Anahy Martinez on 05-28-2025 Albumin [Mass/Vol] 4.6 g/dL 3.5-5.0 [facility] Serum or plasma albumin/glob ulin mass ratioOrdered By: Anahy Martinez on 05-28-2025 Albumin/Globulin [Mass ratio] 1.7 {ratio} 0.9-2.4 [facility] Serum or plasma alkaline laurie sphatase measurementOrdered By: Anahy Martinez 05-28-2025 ALP [Catalytic activity/Vol] 132 U/L High 40-129 [facility] Serum or plasma calcium nixon urement (mass/volume)Ordered By: Anahy Martinez 05-28-2025 Calcium [Mass/Vol] 9.6 mg/dL 7.6-11.0 [facility] Serum or plasma cholesterol in HDL measurement (mass/volume)Ordered By: Anahy Martinez on 05-28-2025 Cholesterol in HDL [Mass/Vol] 47 mg/dL >40 [facility] Comment on above: National Cholesterol Education Program (NCEP) guidelines:<40 mg/dL: Low HDL-cholesterol (major risk factor for CHD)>= 60 mg/dL: High HDL-cholesterol (negative risk factor for CHD)HDL-cholesterol is affected by a number of factors, e.g. smoking, exercise, hormones, sex and age. Serum or plasma cholesterol measurement (mass/volume)Ordered By: Anahy Martinez on 05-28-2025 Cholesterol [Mass/Vol] 133 mg/dL <201 [facility] Comment on above: Cholesterol level, D esirable <200 mg/dLBorderline high cholesterol 200-239 mg/dLHigh cholesterol >=240 mg/dLRecommendations of the NCEP Adult Treatment Panel for the following risk-cutoff thresholds for the [place] population. Serum or plasma ferritin naty surement (mass/volume)Ordered By: Anahy Martinez on 05-28-2025 Ferritin [Mass/Vol] 351 ng/mL 37-417 [facility] Serum or plasma iron saturat ion measurement (mass fraction)Ordered By: Anahy Martinez on 05-28-2025 Iron saturation [Mass fraction] 36.0 % 9-55 [facility] Serum or plasma urea nitroge n measurement (mass/volume)Ordered By: Anahy Martinez on 05-28-2025 Urea nitrogen [Mass/Vol] 17 mg/dL 4-19 [facility] Sodium levelOrdered By: Adrianna Martinez on 05-28-2025 Sodium [Moles/Vol] 138 mmol/L 133-145 [facility] T4 Free Directon 05-28-2025 T4 FREE DIRECT 1.40 ng/dL Normal 0.76-1.46 [facility] Comment on above: Performed By: #### L 500.4050, L501.9910, L100.0100, L500.4100, L502.0500, L501.9520 #### [facility] [place], [address] T4 freeOrdered By: Anahy gamez on 05-28-2025 Free T4 [Mass/Vol] 1.40 ng/dL 0.76-1.46 [facility] TSH DL <= 0.005 mIU/L QnOrde red By: Anahy Martinez on 05-28-2025 TSH Qn 5.620 uIU/mL High 0.300-4.200 [facility] Thyroid Stim Hormone (TSH)on 05-28-2025 TSH 5.620 uIU/mL High 0.300-4.200 [facility] Comment on above: Performed By: #### L 503.0106, L500.4100, L501.9520, L100.0100, L503.6030, L506.0400, L501.5101, L503.5510, L503.6550, L500.4050 #### [facility] [address] [place], [address] Total proteinOrdered By: Jaleel Martinez on 05-28-2025 Protein [Mass/Vol] 7.3 g/dL 5.9-8.4 [facility] Triglycerides measurementOrd ered By: Anahy Martinez on 05-28-2025 Triglyceride [Mass/Vol] 358 mg/dL High <199 [facility] Comment on above: The drugs N-Acetylcy steine and Metamizole may falsely depress this assay. Normal range: <150 mg/dLBorderline High: 150-199 mg/dLHigh: 200-499 mg/dLVery High: >500 mg/dL Venous blood ammonia measure mentOrdered By: Anahy Martinez on 05-28-2025 Ammonia (P) [Moles/Vol] 42.3 umol/L 16-60 [facility] Vitamin B12on 05-28-2025 Cobalamin (Vitamin B12) [Mass/Vol] 400 pg/mL Normal 180-914 [facility] Comment on above: Performed By: #### L 500.4050, L501.9910, L100.0100, L500.4100, L502.0500, L501.9520 #### [facility] [address] [place], [address] Vitamin B12 ser/plasOrdered By: Anahy Martinez on 05-28-2025 Cobalamin (Vitamin B12) [Mass/Vol] 400 pg/mL 180-914 [facility] White blood cell (WBC) count Ordered By: Anahy Martinez on 05-28-2025 WBC (Bld) [#/Vol] 9.7 10*3/uL 4.4-11.0 [facility] Absolute lymphocyte countOrd ered By: [facility] Jossy Long on 05-22-2025 Lymphocytes Auto (Unsp spec) [#/Vol] 3.21 10*3/uL 0.83-4.51 [facility] Absolute neutrophil countOrd ered By: [facility] on 05-22-2025 Neutrophils (Bld) [#/Vol] 6.5 10*3/uL 2.0-7.7 [facility] Anion gap in Serum or Plasma Ordered By: [facility] Ethan on 05-22-2025 Anion gap [Moles/Vol] 15 mmol/L - [facility] Automated lymphocyte count a s percentage of total leukocytesOrdered By: [facility] on 05-22-2025 Lymphocytes/100 WBC Auto (Unsp spec) 28.5 % [facility] BUN/creatinine ratioOrdered By: [facility] on 05-22-2025 Urea nitrogen/Creatinine [Mass ratio] 17.9 mg/mg - [facility] Basic Metabolic Profile (BMP )on 05-22-2025 BUN/CRE 17.9 RATIO Normal - [facility] Comment on above: Performed By: #### L 500.4050, L501.9910, L100.0100, L500.4100, L502.0500, L501.9520 #### [facility] [address] [place], [address] Calcium [Mass/Vol] 10.1 mg/dL Normal 7.6-11.0 [facility] Comment on above: Performed By: #### L 500.4050, L501.9910, L100.0100, L500.4100, L502.0500, L501.9520 #### [facility] [address] [place], [address] Chloride [Moles/Vol] 102 mmol/L Normal 98-108 [facility] Comment on above: Performed By: #### L 500.4050, L501.9910, L100.0100, L500.4100, L502.0500, L501.9520 #### [facility] [address] [place], [address] CO2 [Moles/Vol] 20.9 mmol/L Low 21.0-32.0 [facility] Comment on above: Performed By: #### L 500.4050, L501.9910, L100.0100, L500.4100, L502.0500, L501.9520 #### [facility] [address] [place], [address] Creatinine [Mass/Vol] 0.81 mg/dL Normal 0.70-1.20 [facility] Comment on above: Performed By: #### L 500.4050, L501.9910, L100.0100, L500.4100, L502.0500, L501.9520 #### [facility] [address] [place], [address] GAP 15 Normal 5-15 [facility] Comment on above: Performed By: #### L 500.4050, L501.9910, L100.0100, L500.4100, L502.0500, L501.9520 #### [facility] [address] [place], [address] GFR/1.73 sq M.predicted among non-blacks MDRD (S/P/Bld) [Vol rate/Area] 106 mL/min/{1.73_m2} Normal >60 [facility] Comment on above: Result Comment: mL/m in/1.73m2 CKD-EPI Creatinine Equation (2020) Performed By: #### L 500.4050, L501.9910, L100.0100, L500.4100, L502.0500, L501.9520 #### [facility] [address] [place], [address] Glucose [Mass/Vol] 184 mg/dL High 70-99 [facility] Comment on above: Performed By: #### L 500.4050, L501.9910, L100.0100, L500.4100, L502.0500, L501.9520 #### [facility] [address] [place], [address] Potassium [Moles/Vol] 4.1 mmol/L Normal 3.3-5.1 [facility] Comment on above: Performed By: #### L 500.4050, L501.9910, L100.0100, L500.4100, L502.0500, L501.9520 #### [facility] [address] [place], [address] Sodium [Moles/Vol] 137 mmol/L Normal 133-145 [facility] Comment on above: Performed By: #### L 500.4050, L501.9910, L100.0100, L500.4100, L502.0500, L501.9520 #### [facility] [address] [place], [address] Urea nitrogen [Mass/Vol] 14 mg/dL Normal 4-19 [facility] Comment on above: Performed By: #### L 500.4050, L501.9910, L100.0100, L500.4100, L502.0500, L501.9520 #### [facility] [address] [place], [place], [id number] Basophil percentageOrdered B y: [facility] Jossy Long on 05-22-2025 Basophils/100 WBC (Bld) 0.7 % 0-1 [facility] CBC W/Diff, Automatedon 08-0 Absolute Lymph 3.21 X10 3/uL Normal 0.83-4.51 [facility] Comment on above: Performed By: #### L 500.4050, L501.9910, L100.0100, L500.4100, L502.0500, L501.9520 #### [facility] [address] [place], [address] Absolute Neut 6.5 X10 3/uL Normal 2.0-7.7 [facility] Comment on above: Performed By: #### L 500.4050, L501.9910, L100.0100, L500.4100, L502.0500, L501.9520 #### [facility] [address] [place], [address] Basophils/100 WBC (Bld) 0.7 % Normal 0-1 [facility] Comment on above: Performed By: #### L 500.4050, L501.9910, L100.0100, L500.4100, L502.0500, L501.9520 #### [facility] [address] [place], [address] Eosinophils/100 WBC (Bld) 2.0 % Normal 0-5 [facility] Comment on above: Performed By: #### L 500.4050, L501.9910, L100.0100, L500.4100, L502.0500, L501.9520 #### [facility] [address] [place], [address] Erythrocyte distribution width (RBC) [Ratio] 16.3 % High 11.6-14.6 [facility] Comment on above: Performed By: #### L 500.4050, L501.9910, L100.0100, L500.4100, L502.0500, L501.9520 #### [facility] [address] [place], [address] Hematocrit (Bld) [Volume fraction] 37.4 % Low 40-54 [facility] Comment on above: Performed By: #### L 500.4050, L501.9910, L100.0100, L500.4100, L502.0500, L501.9520 #### [facility] [address] [place], [address] Hemoglobin (Bld) [Mass/Vol] 11.9 g/dL Low 13.0-16.5 [facility] Comment on above: Performed By: #### L 500.4050, L501.9910, L100.0100, L500.4100, L502.0500, L501.9520 #### [facility] [address] [place], [address] IG% 1.400 High 0.0-0.9 [facility] Comment on above: Result Comment: IG% - Immature Granulocytes (promyelocytes, myelocytes and metamyelocytes) > 1% indicates that a LEFT SHIFT is Present. Performed By: #### L 500.4050, L501.9910, L100.0100, L500.4100, L502.0500, L501.9520 #### [facility] [address] [place], [address] Lymphocytes/100 WBC (Bld) 28.5 % Normal 19-41 [facility] Comment on above: Performed By: #### L 500.4050, L501.9910, L100.0100, L500.4100, L502.0500, L501.9520 #### [facility] [address] [place], [address] MCH (RBC) [Entitic mass] 22.8 pg Low 27.0-32.0 [facility] Comment on above: Performed By: #### L 500.4050, L501.9910, L100.0100, L500.4100, L502.0500, L501.9520 #### [facility] [address] [place], [address] MCHC (RBC) [Mass/Vol] 31.8 g/dL Low 32-36 [facility] Comment on above: Performed By: #### L 500.4050, L501.9910, L100.0100, L500.4100, L502.0500, L501.9520 #### [facility] [address] [place], [address] MCV (RBC) [Entitic vol] 71.6 fL Low 80-94 [facility] Comment on above: Performed By: #### L 500.4050, L501.9910, L100.0100, L500.4100, L502.0500, L501.9520 #### [facility] [address] [place], [address] Monocytes/100 WBC (Bld) 9.7 % Normal 0-10 [facility] Comment on above: Performed By: #### L 500.4050, L501.9910, L100.0100, L500.4100, L502.0500, L501.9520 #### [facility] [address] [place], [address] Neutrophils/100 WBC (Bld) 57.7 % Normal 47-70 [facility] Comment on above: Performed By: #### L 500.4050, L501.9910, L100.0100, L500.4100, L502.0500, L501.9520 #### [facility] [address] [place], [address] Nucleated RBC (Bld) [#/Vol] 0 10*3/uL Normal 0-5 [facility] Comment on above: Performed By: #### L 500.4050, L501.9910, L100.0100, L500.4100, L502.0500, L501.9520 #### [facility] [address] [place], [address] Platelet mean volume (Bld) [Entitic vol] 9.1 fL Normal 6.2-12.0 [facility] Comment on above: Performed By: #### L 500.4050, L501.9910, L100.0100, L500.4100, L502.0500, L501.9520 #### [facility] [address] [place], [address] Platelets (Bld) [#/Vol] 329 10*3/uL Normal 150-450 [facility] Comment on above: Performed By: #### L 500.4050, L501.9910, L100.0100, L500.4100, L502.0500, L501.9520 #### [facility] [address] [place], [address] RBC (Bld) [#/Vol] 5.22 10*6/uL Normal 4.6-6.2 [facility] Comment on above: Performed By: #### L 500.4050, L501.9910, L100.0100, L500.4100, L502.0500, L501.9520 #### [facility] [address] [place], [address] RDW SD 40.7 fl Normal 35.1-43.9 [facility] Comment on above: Performed By: #### L 500.4050, L501.9910, L100.0100, L500.4100, L502.0500, L501.9520 #### [facility] [address] [place], [address] WBC (Bld) [#/Vol] 11.3 10*3/uL High 4.4-11.0 [facility] Comment on above: Performed By: #### L 500.4050, L501.9910, L100.0100, L500.4100, L502.0500, L501.9520 #### [facility] [address] [place], [address] Carbon dioxide, total [Moles /volume] in Central venous bloodOrdered By: [facility] Jossy Long on 05-22-2025 CO2 [Moles/Vol] 20.9 mmol/L Low 21.0-32.0 [facility] Chloride assayOrdered By: [facility] Jossyashlyn Long on 05-22-2025 Chloride [Moles/Vol] 102 mmol/L 98-108 [facility] Eosinophil percentageOrdered By: [facility] Jossy Long on 05-22-2025 Eosinophils/100 WBC (Bld) 2.0 % 0-5 [facility] Erythrocyte distribution wid th ratioOrdered By: [facility] Jossy Long on 05-22-2025 Erythrocyte distribution width (RBC) [Ratio] 16.3 % High 11.6-14.6 [facility] Erythrocyte distribution wid th standard deviationOrdered By: [facility] Jossy Long on 05-22-2025 Erythrocyte distribution width (RBC) [Ratio] 40.7 fl 35.1-43.9 [facility] Glomerular filtration rate ( GFR) estimation/1.73 sq m using serum, plasma, or whole bOrdered By: [facility] Jossy Long on 05-22-2025 GFR/1.73 sq M.predicted among non-blacks MDRD (S/P/Bld) [Vol rate/Area] 106 mL/min/{1.73_m2} >60 [facility] Comment on above: mL/min/1.73m2 CKD-EP I Creatinine Equation (2020) Hematocrit Auto (Bld) [Volum e fraction]Ordered By: [facility] Jossy Long on 05-22-2025 Hematocrit (Bld) [Volume fraction] 37.4 % Low 40-54 [facility] Hemoglobin measurementOrdere d By: [facility] Jossy Long on 05-22-2025 Hemoglobin (Bld) [Mass/Vol] 11.9 g/dL Low 13.0-16.5 [facility] Immature granulocytes/100 WB C Auto (Bld)Ordered By: [facility] Jossy Long on 05-22-2025 Immature granulocytes/100 WBC (Bld) 1.400 % High 0.0-0.9 [facility] Comment on above: IG% - Immature Granu locytes (promyelocytes, myelocytes and metamyelocytes) > 1% indicates that a LEFT SHIFT is Present. MCV (mean corpuscular volume ) determinationOrdered By: [facility] Jossy Long on 05-22-2025 MCV (RBC) [Entitic vol] 71.6 fL Low 80-94 [facility] Mean corpuscular hemoglobin (MCH) determinationOrdered By: [facility] Jossy Long on 05-22-2025 MCH (RBC) [Entitic mass] 22.8 pg Low 27.0-32.0 [facility] Mean corpuscular hemoglobin concentration (MCHC) determinationOrdered By: [facility] Jossy Long on 05-22-2025 MCHC (RBC) [Mass/Vol] 31.8 g/dL Low 32-36 [facility] Mean platelet volume determi nationOrdered By: [facility] Jossy Long on 05-22-2025 Platelet mean volume (Bld) [Entitic vol] 9.1 fL 6.2-12.0 [facility] Monocyte percentageOrdered B y: [facility] Jossy Long on 05-22-2025 Monocytes/100 WBC (Bld) 9.7 % 0-10 [facility] Neutrophil percentageOrdered By: [facility] Jossy Long on 05-22-2025 Neutrophils/100 WBC (Bld) 57.7 % 47-70 [facility] Nucleated red blood cell per centageOrdered By: [facility] Jossy Long on 05-22-2025 Nucleated RBC/100 WBC (Bld) [Ratio] 0 % 0-5 [facility] Platelet countOrdered By: [facility] Jossy Long on 05-22-2025 Platelets (Bld) [#/Vol] 329 10*3/uL 150-450 [facility] Potassium measurement (mass/ volume)Ordered By: [facility] Jossy Long on 05-22-2025 Potassium (Unsp spec) [Mass/Vol] 4.1 mmol/L 3.3-5.1 [facility] RBC Auto (Bld) [#/Vol]Ordere d By: [facility] Jossy Long on 05-22-2025 RBC (Bld) [#/Vol] 5.22 10*6/uL 4.6-6.2 [facility] Serum creatinine measurement (mass/volume)Ordered By: Faustino Long on 05-22-2025 Creatinine [Mass/Vol] 0.81 mg/dL 0.70-1.20 [facility] Serum glucose measurement (m ass/volume)Ordered By: [facility] Jossy Long on 05-22-2025 Glucose [Mass/Vol] 184 mg/dL High 70-99 [facility] Serum or plasma calcium nixon urement (mass/volume)Ordered By: [facility] Jossy Ethan on 05-22-2025 Calcium [Mass/Vol] 10.1 mg/dL 7.6-11.0 [facility] Serum or plasma urea nitroge n measurement (mass/volume)Ordered By: [facility] Jossy Ethan on 05-22-2025 Urea nitrogen [Mass/Vol] 14 mg/dL 4-19 [facility] Sodium levelOrdered By: [facility] Jossy Ethan on 05-22-2025 Sodium [Moles/Vol] 137 mmol/L 133-145 [facility] White blood cell (WBC) count Ordered By: [facility] Jossy Ethan on 05-22-2025 WBC (Bld) [#/Vol] 11.3 10*3/uL High 4.4-11.0 [facility] CBC W/Diff, Automatedon 02- Absolute Lymph 3.65 X10 3/uL Normal 0.83-4.51 [facility] Comment on above: Performed By: #### L 500.4050, L501.9910, L100.0100, L500.4100, L502.0500, L501.9520 #### [facility] [address] [place], [address] Absolute Neut 6.2 X10 3/uL Normal 2.0-7.7 [facility] Comment on above: Performed By: #### L 500.4050, L501.9910, L100.0100, L500.4100, L502.0500, L501.9520 #### [facility] [address] [place], [address] Basophils/100 WBC (Bld) 0.6 % Normal 0-1 [facility] Comment on above: Performed By: #### L 500.4050, L501.9910, L100.0100, L500.4100, L502.0500, L501.9520 #### [facility] [address] [place], [address] Eosinophils/100 WBC (Bld) 1.2 % Normal 0-5 [facility] Comment on above: Performed By: #### L 500.4050, L501.9910, L100.0100, L500.4100, L502.0500, L501.9520 #### [facility] [address] [place], [place], [address] Erythrocyte distribution width (RBC) [Ratio] 16.7 % High 11.6-14.6 [facility] Comment on above: Performed By: #### L 500.4050, L501.9910, L100.0100, L500.4100, L502.0500, L501.9520 #### [facility] [address] [place], [address] Hematocrit (Bld) [Volume fraction] 35.7 % Low 40-54 [facility] Comment on above: Performed By: #### L 500.4050, L501.9910, L100.0100, L500.4100, L502.0500, L501.9520 #### [facility] [address] [place], [address] Hemoglobin (Bld) [Mass/Vol] 10.7 g/dL Low 13.0-16.5 [facility] Comment on above: Performed By: #### L 500.4050, L501.9910, L100.0100, L500.4100, L502.0500, L501.9520 #### [facility] [address] [place], [address] IG% 1.100 High 0.0-0.9 [facility] Comment on above: Result Comment: IG% - Immature Granulocytes (promyelocytes, myelocytes and metamyelocytes) > 1% indicates that a LEFT SHIFT is Present. Performed By: #### L 500.4050, L501.9910, L100.0100, L500.4100, L502.0500, L501.9520 #### [facility] [address] [place], [address] Lymphocytes/100 WBC (Bld) 32.2 % Normal 19-41 [facility] Comment on above: Performed By: #### L 500.4050, L501.9910, L100.0100, L500.4100, L502.0500, L501.9520 #### [facility] [address] [place], [address] MCH (RBC) [Entitic mass] 21.5 pg Low 27.0-32.0 [facility] Comment on above: Performed By: #### L 500.4050, L501.9910, L100.0100, L500.4100, L502.0500, L501.9520 #### [facility] [address] [place], [address] MCHC (RBC) [Mass/Vol] 30.0 g/dL Low 32-36 [facility] Comment on above: Performed By: #### L 500.4050, L501.9910, L100.0100, L500.4100, L502.0500, L501.9520 #### [facility] [address] [place], [address] MCV (RBC) [Entitic vol] 71.7 fL Low 80-94 [facility] Comment on above: Performed By: #### L 500.4050, L501.9910, L100.0100, L500.4100, L502.0500, L501.9520 #### [facility] [address] [place], [address] Monocytes/100 WBC (Bld) 10.4 % High 0-10 [facility] Comment on above: Performed By: #### L 500.4050, L501.9910, L100.0100, L500.4100, L502.0500, L501.9520 #### [facility] [address] [place], [address] Neutrophils/100 WBC (Bld) 54.5 % Normal 47-70 [facility] Comment on above: Performed By: #### L 500.4050, L501.9910, L100.0100, L500.4100, L502.0500, L501.9520 #### [facility] [address] [place], [address] Nucleated RBC (Bld) [#/Vol] 0 10*3/uL Normal 0-5 [facility] Comment on above: Performed By: #### L 500.4050, L501.9910, L100.0100, L500.4100, L502.0500, L501.9520 #### [facility] [address] [place], [address] Platelet mean volume (Bld) [Entitic vol] 9.3 fL Normal 6.2-12.0 [facility] Comment on above: Performed By: #### L 500.4050, L501.9910, L100.0100, L500.4100, L502.0500, L501.9520 #### [facility] [address] [place], [address] Platelets (Bld) [#/Vol] 383 10*3/uL Normal 150-450 [facility] Comment on above: Performed By: #### L 500.4050, L501.9910, L100.0100, L500.4100, L502.0500, L501.9520 #### [facility] [address] [place], [address] RBC (Bld) [#/Vol] 4.98 10*6/uL Normal 4.6-6.2 [facility] Comment on above: Performed By: #### L 500.4050, L501.9910, L100.0100, L500.4100, L502.0500, L501.9520 #### [facility] [address] [place], [address] RDW SD 41.7 fl Normal 35.1-43.9 [facility] Comment on above: Performed By: #### L 500.4050, L501.9910, L100.0100, L500.4100, L502.0500, L501.9520 #### [facility] [address] [place], [address] WBC (Bld) [#/Vol] 11.3 10*3/uL High 4.4-11.0 [facility] Comment on above: Performed By: #### L 500.4050, L501.9910, L100.0100, L500.4100, L502.0500, L501.9520 #### [facility] [address] [place], [address] Comprehensive Metabolic Prof ilon 11-23-2024 Albumin [Mass/Vol] 4.2 g/dL Normal 3.2-5.0 [facility] Comment on above: Performed By: #### L 500.4050, L501.9910, L100.0100, L500.4100, L502.0500, L501.9520 #### [facility] [address] [place], [address] Albumin/Globulin [Mass ratio] 1.2 {ratio} Normal 0.9-2.4 [facility] Comment on above: Performed By: #### L 500.4050, L501.9910, L100.0100, L500.4100, L502.0500, L501.9520 #### [facility] [address] [place], [address] ALK P 139 U/L High 45-117 [facility] Comment on above: Performed By: #### L 500.4050, L501.9910, L100.0100, L500.4100, L502.0500, L501.9520 #### [facility] [address] [place], [address] ALT [Catalytic activity/Vol] 21 U/L Normal 16-61 [facility] Comment on above: Performed By: #### L 500.4050, L501.9910, L100.0100, L500.4100, L502.0500, L501.9520 #### [facility] [address] [place], [address] AST [Catalytic activity/Vol] 12 U/L Low 15-37 [facility] Comment on above: Performed By: #### L 500.4050, L501.9910, L100.0100, L500.4100, L502.0500, L501.9520 #### [facility] [address] [place], [address] Bilirubin [Mass/Vol] 0.30 mg/dL Normal 0.20-1.00 [facility] Comment on above: Result Comment: For patients on eltrombopag therapy, use of [place] TBIL is not recommended. Performed By: #### L 500.4050, L501.9910, L100.0100, L500.4100, L502.0500, L501.9520 #### [facility] [address] [place], [address] BUN/CRE 9.0 RATIO Low 10-20 [facility] Comment on above: Performed By: #### L 500.4050, L501.9910, L100.0100, L500.4100, L502.0500, L501.9520 #### [facility] [address] [place], [address] CA,Total 9.0 mg/dL Normal 8.5-10.1 [facility] Comment on above: Performed By: #### L 500.4050, L501.9910, L100.0100, L500.4100, L502.0500, L501.9520 #### [facility] [address] [place], [address] Chloride [Moles/Vol] 106 mmol/L Normal 98-107 [facility] Comment on above: Performed By: #### L 500.4050, L501.9910, L100.0100, L500.4100, L502.0500, L501.9520 #### [facility] [address] [place], [address] CO2 [Moles/Vol] 24.0 mmol/L Normal 21.0-32.0 [facility] Comment on above: Performed By: #### L 500.4050, L501.9910, L100.0100, L500.4100, L502.0500, L501.9520 #### [facility] [address] [place], [address] Creatinine [Mass/Vol] 1.45 mg/dL High 0.70-1.30 [facility] Comment on above: Result Comment: The validity of the calculated GFR GFRAA in patients over 70 years has not been determined. Clinical correlation is essential. Performed By: #### L 500.4050, L501.9910, L100.0100, L500.4100, L502.0500, L501.9520 #### [facility] [address] [place], [address] EST GFR - AA 66 mL/min Normal >60 [facility] Comment on above: Result Comment: Afri can [place] GFR Calc Performed By: #### L 500.4050, L501.9910, L100.0100, L500.4100, L502.0500, L501.9520 #### [facility] [address] [place], [address] GAP 7 Normal 5-15 [facility] Comment on above: Performed By: #### L 500.4050, L501.9910, L100.0100, L500.4100, L502.0500, L501.9520 #### [facility] [address] [place], [address] GFR/1.73 sq M.predicted among non-blacks MDRD (S/P/Bld) [Vol rate/Area] 54 mL/min/{1.73_m2} Low >60 [facility] Comment on above: Result Comment: Non- GFR Calc Performed By: #### L 500.4050, L501.9910, L100.0100, L500.4100, L502.0500, L501.9520 #### [facility] [address] [place], [address] Globulin (S) [Mass/Vol] 3.5 g/dL Normal 2.2-4.2 [facility] Comment on above: Performed By: #### L 500.4050, L501.9910, L100.0100, L500.4100, L502.0500, L501.9520 #### [facility] [address] [place], [address] Glucose [Mass/Vol] 166 mg/dL High 74-106 [facility] Comment on above: Result Comment: Fast ing Glucose result greater than or equal to 126 mg/dL suggests DIABETES MELLITUS per A.D.A. criteria. Performed By: #### L 500.4050, L501.9910, L100.0100, L500.4100, L502.0500, L501.9520 #### [facility] [address] [place], [address] Potassium [Moles/Vol] 4.4 mmol/L Normal 3.5-5.1 [facility] Comment on above: Performed By: #### L 500.4050, L501.9910, L100.0100, L500.4100, L502.0500, L501.9520 #### [facility] [address] [place], [address] Sodium [Moles/Vol] 138 mmol/L Normal 136-145 [facility] Comment on above: Performed By: #### L 500.4050, L501.9910, L100.0100, L500.4100, L502.0500, L501.9520 #### [facility] [address] [place], [address] T PROT 7.7 g/dL Normal 6.4-8.2 [facility] Comment on above: Performed By: #### L 500.4050, L501.9910, L100.0100, L500.4100, L502.0500, L501.9520 #### [facility] [address] [place], [address] Urea nitrogen [Mass/Vol] 13 mg/dL Normal 7-18 [facility] Comment on above: Performed By: #### L 500.4050, L501.9910, L100.0100, L500.4100, L502.0500, L501.9520 #### [facility] [address] [place], [address] Lipid Profileon 11-23-2024 Cholesterol [Mass/Vol] 117 mg/dL Normal 200 [facility] Comment on above: Result Comment: <200 mg/dL Desirable 200-240 mg/dL Borderline >240 mg/dL High Risk Performed By: #### L 500.4050, L501.9910, L100.0100, L500.4100, L502.0500, L501.9520 #### [facility] [address] [place], [address] Cholesterol in HDL [Mass/Vol] 45 mg/dL Normal [facility] Comment on above: Result Comment: The drugs N-Acetylcysteine and Metamizole may falsely depress this assay. Reference Range HDL <40 mg/dL Low HDL Cholesterol HDL >or= 60 mg/dL High HDL Cholesterol Performed By: #### L 500.4050, L501.9910, L100.0100, L500.4100, L502.0500, L501.9520 #### [facility] [address] [place], [address] Cholesterol in LDL [Mass/Vol] 34 mg/dL Normal 0-130 [facility] Comment on above: Performed By: #### L 500.4050, L501.9910, L100.0100, L500.4100, L502.0500, L501.9520 #### [facility] [address] [place], [address] Cholesterol in VLDL [Mass/Vol] 38 mg/dL Normal 5-40 [facility] Comment on above: Performed By: #### L 500.4050, L501.9910, L100.0100, L500.4100, L502.0500, L501.9520 #### [facility] [address] [place], [address] Triglyceride [Mass/Vol] 189 mg/dL Normal [facility] Comment on above: Result Comment: The drugs N-Acetylcysteine and Metamizole may falsely depress this assay. Serum Triglycerides Reference Interval Normal <150 mg/dL Borderline high 150 - 199 mg/dL High 200 - 499 mg/dL Very High > or = 500 mg/dL Performed By: #### L 500.4050, L501.9910, L100.0100, L500.4100, L502.0500, L501.9520 #### [facility] [address] [place], [address] Microalbumin,Random Urineon 11-23-2024 MICROALBUMIN,UR 661.0 mg/L Normal NO RANGE EST. [facility] Comment on above: Performed By: #### L 500.4050, L501.9910, L100.0100, L500.4100, L502.0500, L501.9520 #### [facility] [address] [place], [place], [id number] PSA,Total - Annual Screenon 11-23-2024 PSA,TOT SCREEN 0.74 ng/mL Normal 0.00-4.00 [facility] Comment on above: Result Comment: This test was performed using the TPSA assay method for the [employer] chemistry system. Values obtained with different assay methods cannot be used interchangably. When changing PSA assays in the course of monitoring a patient, additional sequential testing should be carried out to confirm baseline values. Performed By: #### L 500.4050, L501.9910, L100.0100, L500.4100, L502.0500, L501.9520 #### [facility] [address] [place], [place], [address] Thyroid Stim Hormone (TSH)on 11-23-2024 TSH 4.770 uIU/mL High 0.358-3.740 [facility] Comment on above: Performed By: #### L 500.4050, L501.9910, L100.0100, L500.4100, L502.0500, L501.9520 #### [facility] [address] [place], [address] Basophil percentageOrdered B y: Jossy Ethan on 04-26-2023 Bilirubin [Mass/Vol] 0.40 mg/dL 0.20-1.00 [facility] Comment on above: For patients on eltr ombopag therapy, use of [place] TBIL is not recommended. Chloride [Moles/Vol] 103 mmol/L 98-107 [facility] Cholesterol [Mass/Vol] 112 mg/dL <200 [facility] Comment on above: <200 mg/dL Desirable 200-240 mg/dL Borderline >240 mg/dL High Risk Glucose [Mass/Vol] 211 mg/dL 74-106 [facility] Comment on above: Glucose result great er than or equal to 200 mg/dLsuggests DIABETES MELLITUS per A.D.A. criteria. Potassium [Moles/Vol] 4.7 mmol/L 3.5-5.1 [facility] Protein [Mass/Vol] 7.9 g/dL 6.4-8.2 [facility] Sodium [Moles/Vol] 133 mmol/L 136-145 [facility] Triglyceride [Mass/Vol] 145 mg/dL <199 [facility] Comment on above: The drugs N-Acetylcy steine and Metamizole may falsely depress this assay.Serum Triglycerides Reference Interval Normal <150 mg/dL Borderline high 150 - 199 mg/dL High 200 - 499 mg/dL Very High > or = 500 mg/dL WBC (Bld) [#/Vol] 9.2 10*3/uL 4.4-11.0 [facility] Blood erythrocytes count (nu mber/volume)Ordered By: Jossy Long on 04-26-2023 RBC (Bld) [#/Vol] 5.42 10*6/uL 4.6-6.2 [facility] Blood hemoglobin measurement (mass/volume)Ordered By: Jossy Long on 04-26-2023 Hemoglobin (Bld) [Mass/Vol] 11.5 g/dL 13.0-16.5 [facility] Blood platelet mean volumeOr dered By: Jossy Long on 04-26-2023 Platelet mean volume (Bld) [Entitic vol] 9.6 fL 6.2-12.0 [facility] Determination of erythrocyte mean corpuscular volume (MCV)Ordered By: Jossy Long on 04-26-2023 MCV (RBC) [Entitic vol] 71.8 fL 80-94 [facility] Hematocrit Auto (Bld) [Volum e fraction]Ordered By: Jossy Long on 04-26-2023 Hematocrit (Bld) [Volume fraction] 38.9 % 40-54 [facility] - Chemistry and C hemistry - challengeOrdered By: Jossy Long on 04-26-2023 ALP [Catalytic activity/Vol] 237 U/L 45-117 [facility] ALT [Catalytic activity/Vol] 26 U/L 16-61 [facility] CO2 [Moles/Vol] 24.0 mmol/L 21.0-32.0 [facility] Globulin (S) [Mass/Vol] 3.6 g/dL 2.2-4.2 [facility] Urea nitrogen/Creatinine [Mass ratio] 13.0 mg/mg 10-20 [facility] - Hematology and Cell countsOrdered By: Jossy Long on 04-26-2023 Erythrocyte distribution width (RBC) [Entitic vol] 40.0 fL 35.1-43.9 [facility] Erythrocyte distribution width (RBC) [Ratio] 15.7 % 11.6-14.6 [facility] MCH (RBC) [Entitic mass] 21.2 pg 27.0-32.0 [facility] MCHC Auto (RBC) [Mass/Vol]Or dered By: Jossy Long on 04-26-2023 MCHC (RBC) [Mass/Vol] 29.6 g/dL 32-36 [facility] No Panel InformationOrdered By: Jossy Long on 04-26-2023 Estimated GFR (MDRD) Amer 123 mL/min >60 [facility] Comment on above: GFR Calc Estimated GFR (MDRD) Non-Af Amer 102 mL/min >60 [facility] Comment on above: Non- GFR Calc Thyroid Stimulating Hormone (TSH) 1.84 uIU/mL 0.358-3.74 [facility] Platelets bldOrdered By: Vicki Long on 04-26-2023 Platelets (Bld) [#/Vol] 320 10*3/uL 150-450 [facility] Serum or plasma albumin nixon urement (mass/volume)Ordered By: Jossy Long on 04-26-2023 Albumin [Mass/Vol] 4.3 g/dL 3.2-5.0 [facility] Serum or plasma albumin/glob ulin mass ratioOrdered By: Jossy Long on 04-26-2023 Albumin/Globulin [Mass ratio] 1.2 {ratio} 0.9-2.4 [facility] Serum or plasma calcium nixon urement (mass/volume)Ordered By: Jossy Long on 04-26-2023 Calcium [Mass/Vol] 9.4 mg/dL 8.5-10.1 [facility] Serum or plasma cholesterol in HDL measurement (mass/volume)Ordered By: Jossy Long on 04-26-2023 Cholesterol in HDL [Mass/Vol] 39 mg/dL >40 [facility] Comment on above: The drugs N-Acetylcy steine and Metamizole may falsely depress this assay. Reference Range HDL <40 mg/dL Low HDL Cholesterol HDL >or= 60 mg/dL High HDL Cholesterol Serum or plasma cholesterol in VLDL measurement (mass/volume)Ordered By: Jossy Long on 04-26-2023 Cholesterol in VLDL [Mass/Vol] 29 mg/dL 5-40 [facility] Serum or plasma creatinine m easurement (mass/volume)Ordered By: Jossy Long on 04-26-2023 Creatinine [Mass/Vol] 0.85 mg/dL 0.70-1.30 [facility] Comment on above: The validity of the calculated GFR & GFRAA in patients over 70 years has not been determined. Clinical correlation is essential. Serum or plasma low density lipoprotein (LDL) cholesterol measurement (mass/volume)Ordered By: Jossy Long on 04-26-2023 Cholesterol in LDL [Mass/Vol] 44 mg/dL 0-130 [facility] Serum or plasma urea nitroge n measurement (mass/volume)Ordered By: Jossy Long on 04-26-2023 Urea nitrogen [Mass/Vol] 11 mg/dL 7-18 [facility] Thin prep Papanicolaou smear with manual screeningOrdered By: Jossy Long on 04-26-2023 Thin prep Papanicolaou smear with manual screening 10 U/L 15-37 [facility] Thin prep Papanicolaou smear with manual screening 6 5-15 [facility] Thin prep Papanicolaou smear with manual screening 731.0 mg/L NO RANGE EST. [facility] 3612-20-2022 36 Faxed [facility] update on situation. [facility] 36 Called patient and left a message to schedule an appointment . See comments below for details about scheduling. appointment with Dr. Westfall ONLY - per Dr. Westfall appointment must be 30 minutes, next available, no double booking. [facility] 36on 02-17-2023 36 Called patient and left message to make an appointment with Dr. Westfall ONLY - per Dr. Westfall appointment must be 30 minutes, next available, no double booking. Normal [facility] 36 Sure next available no double book HENRI Normal [facility] 36on 12-06-[address] Hassan has declined this 2nd opinion [facility] case. Is this something you are interesting in seeing, all information is attached in the media section. Please let me know your decision. Normal [facility] 36on 11-29-2022 36 2nd opinon [facility] from [facility]. Entire record is in the media section. Please let me know if you will see this, thank you. Dr. Josemanuel Hernandez Date of Surgery 11/06/22 - OP report is page 19 of 32 [facility] Absolute lymphocyte countOrd ered By: Dr. Rudd on 10-24-2022 Lymphocytes Auto (Unsp spec) [#/Vol] 2.27 10*3/uL 0.83-4.51 [facility] Basophil percentageOrdered B y: Dr. Rudd on 10-24-2022 Basophils/100 WBC (Bld) 0.5 % 0-1 [facility] Eosinophils/100 WBC (Bld) 1.5 % 0-5 [facility] Neutrophils (Bld) [#/Vol] 7.7 10*3/uL 2.0-7.7 [facility] Neutrophils/100 WBC (Bld) 69.2 % 47-70 [facility] WBC (Bld) [#/Vol] 11.2 10*3/uL 4.4-11.0 [facility] Blood erythrocytes count (nu mber/volume)Ordered By: Dr. Rudd on 10-24-2022 RBC (Bld) [#/Vol] 6.14 10*6/uL 4.6-6.2 [facility] Blood hemoglobin measurement (mass/volume)Ordered By: Dr. Rudd on 10-24-2022 Hemoglobin (Bld) [Mass/Vol] 12.7 g/dL 13.0-16.5 [facility] Blood lymphocytes/100 leukoc ytesOrdered By: Dr. Rudd on 10-24-2022 Lymphocytes/100 WBC (Bld) 20.3 % 19-41 [facility] Blood monocytes/100 leukocyt esOrdered By: Dr. Rudd on 10-24-2022 Monocytes/100 WBC (Bld) 8.0 % 0-10 [facility] Blood platelet mean volumeOr dered By: Dr. Rudd on 10-24-2022 Platelet mean volume (Bld) [Entitic vol] 8.8 fL 6.2-12.0 [facility] Determination of erythrocyte mean corpuscular volume (MCV)Ordered By: Dr. Rudd on 10-24-2022 MCV (RBC) [Entitic vol] 71.8 fL 80-94 [facility] Hematocrit Auto (Bld) [Volum e fraction]Ordered By: Dr. Rudd on 10-24-2022 Hematocrit (Bld) [Volume fraction] 44.1 % 40-54 [facility] - Hematology and Cell countsOrdered By: Dr. Rudd on 10-24-2022 Erythrocyte distribution width (RBC) [Entitic vol] 38.9 fL 35.1-43.9 [facility] Erythrocyte distribution width (RBC) [Ratio] 15.7 % 11.6-14.6 [facility] Immature granulocytes/100 WBC (Bld) 0.500 % 0.0-0.9 [facility] Comment on above: IG% - Immature Granu locytes (promyelocytes, myelocytes and metamyelocytes) > 1% indicates that a LEFT SHIFT is Present. MCH (RBC) [Entitic mass] 20.7 pg 27.0-32.0 [facility] Nucleated RBC/100 WBC (Bld) [Ratio] 0 % 0-5 [facility] MCHC Auto (RBC) [Mass/Vol]Or dered By: Dr. Rudd on 10-24-2022 MCHC (RBC) [Mass/Vol] 28.8 g/dL 32-36 [facility] Platelets bldOrdered By: Dr. Rudd on 10-24-2022 Platelets (Bld) [#/Vol] 351 10*3/uL 150-450 [facility] Serum or plasma ferritin naty surement (mass/volume)Ordered By: Dr. Rudd on 10-24-2022 Ferritin [Mass/Vol] 85 ng/mL 26-388 [facility] Whole blood hemoglobin A1c/t otal hemoglobin ratio (mass fraction)Ordered By: Dr. Rudd on 10-24-2022 HbA1c (Bld) [Mass fraction] 9.0 % 3.8-5.6 [facility] Comment on above: Normal < 5.7 % Predi abetic 5.7 - 6.4 % Diabetic >or= 6.5 % Please note range changes. Absolute lymphocyte counton 05-18-2022 Lymphocytes Auto (Unsp spec) [#/Vol] 2.47 10*3/uL 0.83-4.51 [facility] Work Phone: Basophil percentageon 2021 Basophils/100 WBC (Bld) 0.3 % 0-1 [facility] Work Phone: Bilirubin [Mass/Vol] 0.40 mg/dL 0.20-1.00 [facility] Work Phone: Comment on above: For patients on eltr ombopag therapy, use of [place] TBIL is not recommended. Chloride [Moles/Vol] 105 mmol/L 98-107 [facility] Work Phone: Cholesterol [Mass/Vol] 101 mg/dL <200 [facility] Work Phone: Comment on above: <200 mg/dL Desirable 200-240 mg/dL Borderline >240 mg/dL High Risk Eosinophils/100 WBC (Bld) 1.1 % 0-5 [facility] Work Phone: Glucose [Mass/Vol] 142 mg/dL 74-106 [facility] Work Phone: Comment on above: Fasting Glucose resu lt greater than or equal to 126 mg/dL suggests DIABETES MELLITUS per A.D.A. criteria. Neutrophils (Bld) [#/Vol] 5.5 10*3/uL 2.0-7.7 [facility] Work Phone: Neutrophils/100 WBC (Bld) 62.6 % 47-70 [facility] Work Phone: Potassium [Moles/Vol] 3.6 mmol/L 3.5-5.1 [facility] Work Phone: Protein [Mass/Vol] 7.7 g/dL 6.4-8.2 [facility] Work Phone: Sodium [Moles/Vol] 137 mmol/L 136-145 [facility] Work Phone: Triglyceride [Mass/Vol] 100 mg/dL <199 [facility] Work Phone: Comment on above: The drugs N-Acetylcy steine and Metamizole may falsely depress this assay.Serum Triglycerides Reference Interval Normal <150 mg/dL Borderline high 150 - 199 mg/dL High 200 - 499 mg/dL Very High > or = 500 mg/dL WBC (Bld) [#/Vol] 8.8 10*3/uL 4.4-11.0 [facility] Work Phone: Blood erythrocytes count (nu mber/volume)on 05-18-2022 RBC (Bld) [#/Vol] 5.24 10*6/uL 4.6-6.2 [facility] Work Phone: Blood hemoglobin measurement (mass/volume)on 05-18-2022 Hemoglobin (Bld) [Mass/Vol] 10.9 g/dL 13.0-16.5 [facility] Work Phone: Blood lymphocytes/100 leukoc yteson 05-18-2022 Lymphocytes/100 WBC (Bld) 28.2 % 19-41 [facility] Work Phone: Blood monocytes/100 leukocyt eson 05-18-2022 Monocytes/100 WBC (Bld) 7.5 % 0-10 [facility] Work Phone: Blood platelet mean volumeon 05-18-2022 Platelet mean volume (Bld) [Entitic vol] 9.0 fL 6.2-12.0 [facility] Work Phone: Determination of erythrocyte mean corpuscular volume (MCV)on 05-18-2022 MCV (RBC) [Entitic vol] 70.2 fL 80-94 [facility] Work Phone: Hematocrit Auto (Bld) [Volum e fraction]on 05-18-2022 Hematocrit (Bld) [Volume fraction] 36.8 % 40-54 [facility] Work Phone: Iron measurement (mass/mass) on 05-18-2022 Iron (Unsp spec) [Mass/Mass] 88 ug/dL 65-175 [facility] Work Phone: Laboratory - Chemistry and C hemistry - challengeon 05-18-2022 ALP [Catalytic activity/Vol] 163 U/L 45-117 [facility] Work Phone: ALT [Catalytic activity/Vol] 19 U/L 16-61 [facility] Work Phone: [phone] CO2 [Moles/Vol] 26.0 mmol/L 21.0-32.0 [facility] Work Phone: Globulin (S) [Mass/Vol] 3.4 g/dL 2.2-4.2 [facility] Work Phone: Urea nitrogen/Creatinine [Mass ratio] 17.0 mg/mg 10-20 [facility] Work Phone: Laboratory - Hematology and Cell countson 05-18-2022 Erythrocyte distribution width (RBC) [Entitic vol] 38.4 fL 35.1-43.9 [facility] Work Phone: Erythrocyte distribution width (RBC) [Ratio] 15.5 % 11.6-14.6 [facility] Work Phone: Immature granulocytes/100 WBC (Bld) 0.300 % 0.0-0.9 [facility] Work Phone: Comment on above: IG% - Immature Granu locytes (promyelocytes, myelocytes and metamyelocytes) > 1% indicates that a LEFT SHIFT is Present. MCH (RBC) [Entitic mass] 20.8 pg 27.0-32.0 [facility] Work Phone: Nucleated RBC/100 WBC (Bld) [Ratio] 0 % 0-5 [facility] Work Phone: MCHC Auto (RBC) [Mass/Vol]on 05-18-2022 MCHC (RBC) [Mass/Vol] 29.6 g/dL 32-36 [facility] Work Phone: No Panel Informationon 05-18 Estimated GFR (MDRD) Amer 95 mL/min >60 [facility] Work Phone: Comment on above: GFR Calc Estimated GFR (MDRD) Non-Af Amer 79 mL/min >60 [facility] Work Phone: Comment on above: Non- GFR Calc Thyroid Stimulating Hormone (TSH) 1.95 uIU/mL 0.358-3.74 [facility] Work Phone: Total Iron Binding Capacity 384 ug/dL 250-450 [facility] Work Phone: Platelets bldon 05-18-2022 Platelets (Bld) [#/Vol] 317 10*3/uL 150-450 [facility] Work Phone: Serum or plasma albumin nixon urement (mass/volume)on 05-18-2022 Albumin [Mass/Vol] 4.3 g/dL 3.2-5.0 [facility] Work Phone: Serum or plasma albumin/glob ulin mass ratioon 05-18-2022 Albumin/Globulin [Mass ratio] 1.3 {ratio} 0.9-2.4 [facility] Work Phone: Serum or plasma calcium nixon urement (mass/volume)on 05-18-2022 Calcium [Mass/Vol] 9.0 mg/dL 8.5-10.1 [facility] Work Phone: Serum or plasma cholesterol in HDL measurement (mass/volume)on 05-18-2022 Cholesterol in HDL [Mass/Vol] 37 mg/dL >40 [facility] Work Phone: Comment on above: The drugs N-Acetylcy steine and Metamizole may falsely depress this assay. Reference Range HDL <40 mg/dL Low HDL Cholesterol HDL >or= 60 mg/dL High HDL Cholesterol Serum or plasma cholesterol in VLDL measurement (mass/volume)on 05-18-2022 Cholesterol in VLDL [Mass/Vol] 20 mg/dL 5-40 [facility] Work Phone: Serum or plasma creatinine m easurement (mass/volume)on 05-18-2022 Creatinine [Mass/Vol] 1.06 mg/dL 0.70-1.30 [facility] Work Phone: Comment on above: The validity of the calculated GFR & GFRAA in patients over 70 years has not been determined. Clinical correlation is essential. Serum or plasma ferritin naty surement (mass/volume)on 05-18-2022 Ferritin [Mass/Vol] 30 ng/mL 26-388 [facility] Work Phone: Serum or plasma low density lipoprotein (LDL) cholesterol measurement (mass/volume)on 05-18-2022 Cholesterol in LDL [Mass/Vol] 44 mg/dL 0-130 [facility] Work Phone: Serum or plasma urea nitroge n measurement (mass/volume)on 05-18-2022 Urea nitrogen [Mass/Vol] 18 mg/dL 7-18 [facility] Work Phone: Thin prep Papanicolaou smear with manual screeningon 05-18-2022 Thin prep Papanicolaou smear with manual screening 15 U/L 15-37 [facility] Work Phone: Thin prep Papanicolaou smear with manual screening 6 5-15 [facility] Work Phone: CNOVon 12-26-2021 CNOV Office Visit (PODIWS) NGOC RODRIGUEZ ([id number]) 1970 M Date Time Provider Department 12/26/21 2:30 PM JERRY SHIPLEY During your visit today, we recorded the [...] Right Foot - New, bone spurs Jerry Shipley DPM 12/26/2021 2:45 PM Signed Consultation requested by [...] no signific (more content not included)... Normal [facility] Encounters Encounter Date Encounter Type Care Provider Facility Start: 05-28-2025 End: 05-28-2025 ambulatory Jossy Long [employer] TECHNICIAN-C Work Phone: -Laboratory Start: 05-28-2025 End: 05-28-2025 Patient encounter procedure Anahy Juan [employer] TECHNICIAN-C -Laboratory Work Phone: Start: 05-28-2025 End: 05-28-2025 ambulatory Jossy Long Facility:[facility] Start: 05-22-2025 End: 05-22-2025 ambulatory Jossy Long [employer]RO[employer] TECHNICIAN-C Work Phone: -Laboratory Start: 05-22-2025 End: 05-22-2025 Patient encounter procedure [facility] Jossy Ethan [employer]RO[employer] TECHNICIAN-C -Laboratory Work Phone: Start: 05-22-2025 End: 05-22-2025 ambulatory [facility] Facility:[facility] Start: 11-23-2024 End: 11-23-2024 ambulatory [facility] Facility:[facility] Start: 04-26-2023 End: 04-26-2023 ambulatory [facility] Work Phone: Start: 04-26-2023 End: 04-26-2023 Patient encounter procedure [facility]-Laboratory Work Phone: Start: 10-24-2022 End: 10-24-2022 ambulatory [facility] Work Phone: Start: 10-24-2022 End: 10-24-2022 Patient encounter procedure [facility]-Laboratory Start: 05-21-2022 End: 05-21-2022 Patient encounter procedure [facility]-Laboratory, Specimen Start: 05-18-2022 End: 05-18-2022 Patient encounter procedure [facility]-Laboratory Start: 12-25-2021 End: 12-25-2021 Discharged Recurring [facility]-Occupational Therapy Procedures Date Procedure Procedure Detail Performing Clinician Start: 05-28-2025 Total iron binding capacity measurement Jossy CANTU Work Phone: Measurement of occul t blood in stool specimen using immunoassay Immunizations Immunization Date Immunization Notes Care Provider Fa cility 11-06-2021 tetanus toxoid, redu senthil diphtheria toxoid, and acellular pertussis vaccine, adsorbed [facility] Payers Date Payer Category Payer Self-pay [id number] 2024 Unknown [id number] Unknown SELF PAY INSURANCE [id number] Unknown SELF PAY INSURANCE [id number] Unknown [id number] Unknown [id number] Unknown [id number] Unknown [id number] Unknown [id number] Social History Date Type Detail Facility Start: 11-06-2021 End: 11-06-2021 Tobacco smoking status NHIS Unknown if ever smoked [facility] Start: 1970 Sex Assigned At Male [facility] Start: 11-06-2021 Tobacco smoking stat us LAIS Smokes tobacco daily (finding) [facility] Progress note 12-26-2021 Note Date & Type Note Facility 12-26-2021 Note HNO ID: [id number] Author: Sangeeta Yee MA Service: ? Author Type: Room Service Waiter/Waitress Type: Progress Notes Filed: 12/26/2021 2:45 PM Note Text: Per Dr. Shipley, Ngoc was provided with Powerstep Original full length, size 10, and instructed/educated in its application, wear, and care. All questions were answered, and patient was able to demonstrate competence with the necessary skills to utilize the above equipment. Sangeeta Yee MA [facility] Progress note 12-26-2021 Note Date & Type Note Facility 12-26-2021 Note HNO ID: [id number] Author: Jerry Shipley Service: ? Author Type: Physician Type: Progress [...] Radiographs: per rep (more content not included)... [facility] Progress note 12-26-2021 Note Date & Type Note Facility 12-26-2021 Note HNO ID: [id number] Author: Sangeeta Yee MA Service: ? Author Type: Room Service Waiter/Waitress Type: Progress Notes Filed: 12/26/2021 2:45 PM Note Text: AMB ROOMING INTAKE FLOWSHEET DATA Risk Screening Do you have concerns about personal safety or safety in the home?: No Pain Pain Level: 3 Pain Location: Foot-Right Description: Stabbing/Not Incision Duration Amount of Time: 6 Duration Units: Months Frequency: Continuous Intervention/Comfort measure: Medication, Relaxation Patient presents with: Right Foot - New, bone spurs [facility] Evaluation note Note Date & Type Note Facility Evaluation note No assessment information availa ble [facility] Work Phone: Reason for referral (narrative) Note Date & Type Note Facility Reason for referral (narrative) No reason for referral information available [facility] Work Phone: Summary Purpose Family History No Family History Records Found Relationship Condition Age at Onset Recorded Date/T glen mother Malignant neoplasm of pancreas Unknown Advance Directives No Advanced Directives Records Found Advance Directive Response Recorded Date/ Time Living Will No November 06 2:11pm Power of Claims Configuration Analyst No November 06, 2021 2:11pm Advance Directive Response Recorded Date/ Time Living Will No November 06 1:11pm Power of Claims Configuration Analyst No November 06, 2021 1:11pm Chief Complaint and Reason for Visit Chief Complaint RT THUMB SPLINT/ RX HERE Chief Complaint STOOL SAMPLE Chief Complaint Admit Date E ORDER May 22, 2025 11: 19am Additional Source Comments (unrecognized sect ion and content) No Status Records FoundNo Status Records FoundNo Status Records Found INFORMATION SOURCE (unrecogn ized section and content) DATE CREATED AUTHOR 01/10/2022 [facility] DATE CREATED AUTHOR AUTHOR'S ORGANIZ ATION 12/22/2022 [facility] DATE CREATED AUTHOR AUTHOR'S ORGANIZ ATION 06/05/2025 [facility] Goals (unrecognized section and content) Goals may [...] Team Status: Active Member Role Status Dates [facility] Family Provider Active [facility] Primary Care Provider A ctive Team Status: Inactive Member Role Status Dates [facility] Primary Care Provider A ctive Dr. Ashu Rudd MD Attending Provider Active Team Status: Inactive Member Role Status Dates [facility] Primary Care Provider A ctive Jossy Long DARKROOM TECHNICIAN, [employer] TECHNICIAN-C Attending Provider, Rosario byrd Provider Active Team Status: Active Member Role/Relationship Status Dates Jossy ZHAO [employer] TECHNICIAN-C Primary Care Provider Activ e Team Status: Inactive Member Role/Relationship Status Dates Jossy ZHAO, [employer]RO[employer] TECHNICIAN-C Primary Care Provider Activ e Start: May 22, 2025 End: May 22, 2025 Jossy ZHAO, DARKROOM TECHNICIAN-C Attending Provider Active Start: May 22, 2025 End: May 22, 2025 PEPE Cifuentes Referring Provider Active Start: May 22, 2025 End: May 22, 2025 Team Status: Inactive Member Role/Relationship Status Dates Jossy PEPE Alarcon Primary Care Provider Activ e Start: May 28, 2025 End: May 28, 2025 PEPE Gresham Attending Provider Active Start: May 28, 2025 End: May 28, 2025 PEPE Gresham Referring Provider Active Start: May 28, 2025 End: May 28, 2025 FOR RECORDS PERTAINING TO PATIENTS WHO ARE [...] BE BASED ON THE PRIMARY CLINICAL RECORDS. [facility] [employer] provides no warranty or guarantee of the accuracy or completeness of information in this document.
[2025-09-10] VITALS (10 sets, daily range): BP systolic 109–138; BP diastolic 70–87; PULSE 77–91; RESP 16–18; TEMP 36.9; O2SAT 96–100
[2025-09-10 04:19] LABS: Hematocrit 31.1 % (40-54); Hemoglobin 10.0 g/dL (13.0-16.5); Mean Corp Hgb Conc 32.2 g/dL (32-36); Mean Corpuscular Volume 76.6 fL (80-94); Mean Platelet Vol. 9.5 fl (6.2-12.0); Platelet Count 245 K/mm3 (150-450); RBC Distribution Width CV 18.6 % (11.6-14.6); RBC Distribution Width SD 50.2 fl (35.1-43.9); Red Blood Count 4.06 M/mm3 (4.6-6.2); White Blood Count 6.9 K/mm3 (4.4-11.0)
[2025-09-10 05:14] LABS: Anion Gap 12 (5-15); BUN 12 mg/dL (4-19); BUN/Creat Ratio 14.5 RATIO (10-20); Calcium,Total 8.1 mg/dL (7.6-11.0); Carbon Dioxide 20.7 mmol/L (21.0-32.0); Chloride 102 mmol/L (98-108); Estimated Creatinine Clearance 116.98 ml/min (50-250); Glucose 184 mg/dL (70-99); Potassium 4.0 mmol/L (3.3-5.1)
[2025-09-10] MEDS: 0.9% Saline Lock 10 ML Syringe IV ×2 (05:56→11:47)
--- NOTE | 2025-09-10 06:54 | PCM.PN.HOSP ---
Reason for Visit Chief Complaint: palpitations Subjective Subjective Doing well. Objective Data Objective Data Vital Signs: Vital Signs Temp Pulse Resp BP Pulse Ox O2 Del Method O2 Flow Rate 36.9 C 83 17 118/70 96 Room Air 2 09/10/25 02:00 09/10/25 02:00 09/10/25 02:00 09/10/25 02:00 09/10/25 02:00 09/10/25 05:43 09/09/25 10:30 Oxygen Flow Rate (L/min) 2 Oxygen Delivery Method Room Air Weight: 76.566 kg Body Mass Index (BMI) 22.8 Intake & Output: Intake and Output for Last 24 Hours 09/08/25 09/09/25 09/10/25 23:59 23:59 23:59 Intake Total 298.83 / 298.83 Balance 298.83 / 298.83 Lab / Micro Data 09/10/25 03:53 09/10/25 03:53 Labs: Laboratory Results - last 24 hr 09/09/25 09:20: WBC 10.3, RBC 4.75, Hgb 11.4 L, Hct 36.9 L, MCV 77.7 L, MCH 24.0 L, MCHC 30.9 L, RDW Std Deviation 51.1 H, RDW Coeff of Lavon 19.0 H, Plt Count 319, MPV 9.1, Immature Gran % (Auto) 0.600, Neut % (Auto) 56.6, Lymph % (Auto) 31.7, Harrison % (Auto) 9.3, Eos % (Auto) 0.9, Baso % (Auto) 0.9, Absolute Neuts (auto) 5.8, Absolute Lymphs (auto) 3.26, Nucleated RBC % 0, Sodium 138, Potassium 3.4, Chloride 99, Carbon Dioxide 21.4, Anion Gap 18 H, BUN 17, Creatinine 1.05, Estim Creat Clear Calc 90.33, Est GFR (MDRD) Non-Af 85, BUN/Creatinine Ratio 15.7, Glucose 139 H, Calcium 9.1, Troponin T High Sens 42 H, TSH 5.520 H 09/09/25 11:35: Troponin T Hi Sens 2 Hr 36 H, Free T4 1.20 09/09/25 12:02: POC Glucose 87 09/09/25 13:48: Troponin T Hi Sens 4Hr 38 H 09/09/25 16:23: POC Glucose 112 H 09/09/25 20:55: POC Glucose 151 H 09/10/25 03:53: WBC 6.9, RBC 4.06 L, Hgb 10.0 L, Hct 31.1 L, MCV 76.6 L, MCH 24.6 L, MCHC 32.2, RDW Std Deviation 50.2 H, RDW Coeff of Lavon 18.6 H, Plt Count 245, MPV 9.5, Sodium 135, Potassium 4.0, Chloride 102, Carbon Dioxide 20.7 L, Anion Gap 12, BUN 12, Creatinine 0.80, Estim Creat Clear Calc 116.98, Est GFR (MDRD) Non-Af 106, BUN/Creatinine Ratio 14.5, Glucose 184 H, Hemoglobin A1c 7.5 H, Calcium 8.1 Radiography Diagnostic Testing: Radiology Impression Chest X-Ray 09/09/25 09:48 IMPRESSION: No acute process is identified in the chest. Reading Location: [facility] Echocardiogram 09/09/25 11:57 Interpretation Summary Top normal ventricular size with mild to moderate global systolic dysfunction with pressure around 40 to 45% No significant valvular pathology with normal biatrial size Normal LV diastolic function. Normal RV size and function Ordering Physician: Chapin Doll Referring Physician: RAMIREZ SHAW Performed By: Norma Fairbanks RCS Physical Exam Const alert and no apparent distress HEENT head/scalp atraumatic and moist oral mucous membranes Resp normal respiratory effort, no retractions, no use of accessory muscles and clear to auscultation bilaterally Cardio regular rate, regular rhythm, S1 normal heart sound and S2 normal heart sound GI normal to inspection, nondistended, normoactive bowel sounds, soft to palpation, non-tender and non-distended Extremity normal to inspection Assessment & Plan Assessment/Plan (1) Atrial flutter with rapid ventricular response: (2) Elevated troponin: PLAN: Plan Atrial flutter with RVR: New diagnosis but likely not new onset. Patient started on diltiazem drip and has improved and now on metoprolol tartrate 25 BID (diltiazem currently off) [id number] of 2 and anticoagulated with enoxaparin. Will change to DOAC pending whether or not any additional procedures planned based on the stress test. Cardiac input appreciated. echo shows a depressed EF of 40-45%. Cardiology recommending starting empagliflozin, DC HCTZ, follow up echo in 30-days and 30-day event monitor. Elevated troponins I suspect demand ischemia from likely prolonged aflutter w RVR stress negative Elevated TSH: Free T4 is within normal limits. No additional workup at this time Alcohol misuse: Patient drinks anywhere from 2-4 drinks per day per his history. Patient will be placed on thiamine and folate. Expectant management. Diabetes mellitus type 2: Sliding scale insulin for now. Check an A1c. VTE prophylaxis: Patient is anticoagulated and not indicated at this time. Charges/Coding Visit Charges Inpatient E&M: 18270 Subs Hosp L2
--- NOTE | 2025-09-10 08:25 | NURSING ---
2430 Pt off unit to for stress test
[2025-09-10] MEDS: Thiamine Hydrochloride 100 MG Tablet PO (09:57)
[2025-09-10] MEDS: FLU VACCINE 2025-26(6MOS UP) 45 MCG/0.5 ML SYRINGE IM (10:42)
--- NOTE | 2025-09-10 10:55 | STRESSREP ---
Stress Test Report Pharmacologic myocardial perfusion stress test. 54-year-old [male] with a history of [atrial flutter, underlying diabetes mellitus and chest pain]. Resting EKG demonstrates [sinus rhythm with lateral T wave abnormalities as well as inferior ST segment changes] with a rate of [88] bpm. Resting blood pressure is [138/92] mmHg. 0.4 mg of regadenoson was infused per usual protocol followed by rapid intravenous saline flush injection. Continuous EKG monitoring was performed. The maximum heart rate was [100] bpm which was [59]% of max impacted heart rate the maximum workload was [1] metabolic equivalent. At rest there were no ST or T wave changes noted to suggest ischemia and at peak infusion nonspecific ST changes were noted which did not meet the criteria for ischemia. No clinical angina is noted. The final blood pressure was [138/92]mmHg. Myocardial perfusion protocol. [12] mCi of technetium 99m sestamibi was injected at rest. 0.4 mg of regadenoson was infused per usual protocol. At peak infusion [34.6] mCi of technetium 99m sestamibi was injected stress images were obtained stress and rest images were reconstructed and compared in the short axis vertical long and horizontal long axis. Gated images were also obtained. Perfusion SPECT analysis: Review of the stress images demonstrate normal uptake of tracer noted in all areas of the myocardium. The resting images similar demonstrated normal uptake of tracer noted in all areas of the myocardium. No areas of reversibility are noted to suggest ischemia and no previous infarct is noted. Gated SPECT analysis: The gated ejection fraction is [50]%. 3 times daily 0.99 Conclusion: [Negative] pharmacologic myocardial perfusion stress test for ischemia or infarction Calculated LV [ ] ejection fraction 50% Nondiagnostic EKG portion of the test due to abnormal baseline .
--- NOTE | 2025-09-10 10:59 | PN.CARD_ITS ---
Subjective Subjective Feels well no arrhythmia overnight and wants to go home Objective Data Vital Signs: Vital Signs Temp Pulse Resp BP Pulse Ox O2 Del Method O2 Flow Rate 98.4 F 91 16 130/87 H 100 Room Air 2 09/10/25 10:00 09/10/25 10:00 09/10/25 10:00 09/10/25 10:00 09/10/25 10:00 09/10/25 10:00 09/09/25 10:30 Oxygen Flow Rate (L/min) 2 Oxygen Delivery Method Room Air Weight: 168 lb 12.8 oz Body Mass Index (BMI) 22.8 Intake & Output: Intake and Output for Last 24 Hours 09/08/25 09/09/25 09/10/25 23:59 23:59 23:59 Intake Total 298.83 / 298.83 Balance 298.83 / 298.83 Lab / Micro Data 09/10/25 03:53 09/10/25 03:53 Labs: Laboratory Results - last 24 hr 09/09/25 11:35: Troponin T Hi Sens 2 Hr 36 H, Free T4 1.20 09/09/25 12:02: POC Glucose 87 09/09/25 13:48: Troponin T Hi Sens 4Hr 38 H 09/09/25 16:23: POC Glucose 112 H 09/09/25 20:55: POC Glucose 151 H 09/10/25 03:53: WBC 6.9, RBC 4.06 L, Hgb 10.0 L, Hct 31.1 L, MCV 76.6 L, MCH 24.6 L, MCHC 32.2, RDW Std Deviation 50.2 H, RDW Coeff of Lavon 18.6 H, Plt Count 245, MPV 9.5, Sodium 135, Potassium 4.0, Chloride 102, Carbon Dioxide 20.7 L, Anion Gap 12, BUN 12, Creatinine 0.80, Estim Creat Clear Calc 116.98, Est GFR (MDRD) Non-Af 106, BUN/Creatinine Ratio 14.5, Glucose 184 H, Hemoglobin A1c 7.5 H, Calcium 8.1 09/10/25 09:43: POC Glucose 212 H Rhythm Strip Rhythm Strip: Sinus Rhythm Cardiology Labs/Tests 09/10/25 03:53: WBC 6.9, RBC 4.06 L, Hgb 10.0 L, Hct 31.1 L, MCV 76.6 L, MCH 24.6 L, MCHC 32.2, Plt Count 245, MPV 9.5, Sodium 135, Potassium 4.0, Chloride 102, Carbon Dioxide 20.7 L, Anion Gap 12, BUN 12, Creatinine 0.80, Est GFR (MDRD) Non-Af 106, BUN/Creatinine Ratio 14.5, Glucose 184 H, Hemoglobin A1c 7.5 H, Calcium 8.1 Rhythm: EKG: Sinus rhythm with inferolateral T wave abnormalities ECHO: Stress Test:09/10/2025 LVEF 50%. No evidence of ischemia Cardiac Cath: PCI: CT Surgery: Holter monitor: EPS: PPM: CXR: Chest CT Scan: Radiography Diagnostic Testing: Radiology Impression Echocardiogram 09/09/25 11:57 Interpretation Summary Top normal ventricular size with mild to moderate global systolic dysfunction with pressure around 40 to 45% No significant valvular pathology with normal biatrial size Normal LV diastolic function. Normal RV size and function Ordering Physician: Chapin Doll Referring Physician: RAMIREZ SHAW Performed By: Norma Fairbanks RCS Physical Exam Const alert and oriented x3 General Appearance: other Looks well in no acute distress Orientation / Consciousness: awake HEENT normocephalic and head/scalp atraumatic Eyes PERRL and EOMs intact bilaterally Neck full ROM and no lymphadenopathy Lymph Lymphatic: no lymphadenopathy noted Chest inspection of chest normal Resp normal respiratory effort Cardio regular rate and regular rhythm GI Palpation: no hepatosplenomegaly no CVA tenderness Back/Spine no CVA tenderness Extremity normal to inspection Skin no rashes or lesions noted Psych mental status grossly normal Assessment & Plan Assessment/Plan (1) Hypertension: PLAN: Continue current maximum losartan as an angiotensin receptor delmis as well as oral beta-delmis for optimal BP control and a goal BP on an ambulatory basis less than 120/80. Discontinue hydrochlorothiazide (2) Diabetes: PLAN: Continue current diabetic management however due to mild LV systolic dysfunction would recommend the introduction of SGL 2 receptor antagonist Jardiance and achieve a goal A1c less than 7 or preferably 6.5 or less (3) Hyperlipidemia: PLAN: Recent LDL in June 09 2515 (4) Atrial flutter with rapid ventricular response: PLAN: Maintaining sinus rhythm however not sure if recurrence is unlikely for which we will continue anticoagulation with Eliquis 5 mg twice daily for the next 3 to 4 weeks and reassess normalization of LV systolic function by echocardiogram as well as placement of 30-day graphic design specialist to ensure stability of sinus rhythm prior to discontinuation of anticoagulation. CHADS2 Vascor of 2 based on hypertension and diabetes (5) Elevated troponin: PLAN: Likely nonspecific secondary to tachycardia especially with negative stress test for any myocardial ischemia. (6) Cardiomyopathy: PLAN: Stress test negative for ischemia, LVEF by gated modality 50% for which we will introduce SGL 2 receptor antagonist in the form of Jardiance and maintain his current beta-delims/losartan with rechecking LV systolic function by limited echocardiogram in 4 weeks as very likely it is related to tachyarrhythmia.
--- NOTE | 2025-09-10 11:16 | CASEMGMT ---
JG NGUYEN Assessment Face to Face with patient for initial transition planning/care coordination assessment. JG NGUYEN introduced self and role at [facility], pt voices understanding. Pt is A&Ox4 and is resting comfortably in bed and is calm. Care providers, pharmacy, and demographics verified. Admitting dx: A-Flutter RVR LACE Strata: 2 PCP: Jossy Long ([facility]) Specialists: Pt plans to start seeing [facility] after DC Preferred Pharmacy: [facility] Insurance: MMO Prescription Benefit: Yes LNOK: Aaron (Cousin), Kandi (Aunt) Living Arrangements: Pt lives alone on the 6th floor of an apartment complex with an elevator to access ADLs/IADLs: Indep. 6-Click score is 24 Transportation: Pt states that he does not drive and that he does not have anyone that drives him. Pt states that her uses an E-Bike for transport and that he has it here. Pt denies concerns. Pt also denies the need for resources and states, I know all of that already. DME: A functioning BGM with sufficient testing supplies including lancets, test strips, and EtOH swabs. Pen needles for insulin shots. BP Machine. ? HHC/SNF: Denies hx or needs EtOH/Smoking: pt states that he drinks 2-4 drinks per day and smokes a pack of cigarettes per day. Pt denies wanting SW follow up or any resources regarding the matter Pt?s goal: Home Plan: Home. Noted that cardiology plans to prescribe Eliquis at DC. Savings card provided to the pt and educated the pt that this can only be used once. Pt thanks this machine sign writer and denies the need for any further resources or therapy. Pt denies further DC needs and states that he is ready for DC. Darwin Rudd RN, CM
--- NOTE | 2025-09-10 13:35 | DS.PCM_ITS ---
Providers Date of Admission: 09/09/25 Primary Care Physician: Ramirez Shaw Faustino, COMMERCIAL PROPERTY MANAGER-C Consultations 09/09/25 11:57 Consult: Cardiology Routine Consulting Provider: Kehinde Valentino Reason for Consult: alutter w RVR EMERGENT Consult: No MD Notified: Yes Date Notified: 09/09/25 Time Notified: 10:58 Method of Notification: ED Physician Initiated Reason For Visit: AFLUTTER RVR Diagnosis Discharge Diagnosis (1) Atrial flutter with rapid ventricular response: Status: Acute Code(s): I48.92 - Unspecified atrial flutter (2) Elevated troponin: Status: Acute Code(s): R79.89 - Other specified abnormal findings of blood chemistry Plan Atrial flutter with RVR: * New diagnosis but likely not new onset. * Patient started on diltiazem drip and has improved and now on metoprolol tartrate 25 BID (diltiazem currently off) * [id number] of 2 and anticoagulated with enoxaparin. Will change to DOAC pending whether or not any additional procedures planned based on the stress test. * Cardiac input appreciated. * echo shows a depressed EF of 40-45%. * Cardiology recommending starting empagliflozin, DC HCTZ, follow up echo in 30- days and 30-day event monitor. Elevated troponins * I suspect demand ischemia from likely prolonged aflutter w RVR * stress negative Elevated TSH: * Free T4 is within normal limits. No additional workup at this time Alcohol misuse: * Patient drinks anywhere from 2-4 drinks per day per his history. * Patient will be placed on thiamine and folate. * Expectant management. Diabetes mellitus type 2: * Sliding scale insulin for now. Check an A1c. VTE prophylaxis: Patient is anticoagulated and not indicated at this time. Medications at Discharge Home Medications losartan 25 mg tablet 100 mg PO DAILY blood pressure 12/20/18 metformin 1,000 mg tablet 1,000 mg PO BID blood sugar 12/20/18 omeprazole 20 mg capsule,delayed release 20 mg PO DAILY reflux 12/20/18 sertraline 100 mg tablet (Zoloft) 125 mg PO DAILY mood 12/20/18 atorvastatin 10 mg tablet 10 mg PO DAILY Cholesterol 11/06/21 apixaban 5 mg tablet (Eliquis) 5 mg PO BID #60 tabs 09/10/25 empagliflozin 10 mg tablet (Jardiance) 10 mg PO DAILY #30 tabs 09/10/25 levothyroxine 25 mcg tablet 25 mcg PO DAILY hypothyroid 09/10/25 metoprolol tartrate 50 mg tablet 50 mg PO BID #60 tabs 09/10/25 Weight / BMI Weight Weight: 76.566 kg Body Mass Index (BMI) 22.8 ABG / Lab / Microbiology Data 09/10/25 03:53 09/10/25 03:53 Laboratory: Laboratory Results - last 24 hr 09/09/25 13:48: Troponin T Hi Sens 4Hr 38 H 09/09/25 16:23: POC Glucose 112 H 09/09/25 20:55: POC Glucose 151 H 09/10/25 03:53: WBC 6.9, RBC 4.06 L, Hgb 10.0 L, Hct 31.1 L, MCV 76.6 L, MCH 24.6 L, MCHC 32.2, RDW Std Deviation 50.2 H, RDW Coeff of Lavon 18.6 H, Plt Count 245, MPV 9.5, Sodium 135, Potassium 4.0, Chloride 102, Carbon Dioxide 20.7 L, Anion Gap 12, BUN 12, Creatinine 0.80, Estim Creat Clear Calc 116.98, Est GFR (MDRD) Non-Af 106, BUN/Creatinine Ratio 14.5, Glucose 184 H, Hemoglobin A1c 7.5 H, Calcium 8.1 09/10/25 09:43: POC Glucose 212 H 09/10/25 11:51: POC Glucose 142 H Radiography Diagnostic Testing: Radiology Impression Echocardiogram 09/09/25 11:57 Interpretation Summary Top normal ventricular size with mild to moderate global systolic dysfunction with pressure around 40 to 45% No significant valvular pathology with normal biatrial size Normal LV diastolic function. Normal RV size and function Ordering Physician: Chapin Doll Referring Physician: RAMIREZ SHAW Performed By: Norma Fairbanks RCS D/C Instructions DC O2, CPAP, BIPAP Needs Home O2 Discharge instructions: No Meaningful Use Info Meaningful Use Meaningful Use Diagnoses (Choose all that apply): None applicable Discharge Plan Admission Admit Date/Time: 09/09/25 10:52 Primary Reason for Your Visit: atrial fibrillation Attending Provider: Chapin Doll Primary Care Provider: Ramirez Shaw Consulting Providers: Kehinde Valentino Discharge Orders/Prescriptions Prescriptions: New metoprolol tartrate 50 mg Tablet 50 mg PO BID Qty: 60 0RF Eliquis 5 mg Tablet 5 mg PO BID Qty: 60 0RF Jardiance 10 mg Tablet 10 mg PO DAILY Qty: 30 0RF Continued sertraline [Zoloft] 100 MG tablet 125 mg PO DAILY metformin 1,000 MG tablet 1,000 mg PO BID losartan 25 MG tablet 100 mg PO DAILY omeprazole 20 MG capsule 20 mg PO DAILY atorvastatin 10 mg tablet 10 mg PO DAILY levothyroxine 25 mcg tablet 25 mcg PO DAILY Discontinued amlodipine 5 MG tablet 10 mg PO DAILY pioglitazone 15 mg tablet 15 mg PO DAILY Levemir FlexTouch U100 Insulin 100 unit/mL (3 mL) insulin pen 50 unit SUBCUT DAILY hydrochlorothiazide 12.5 mg tablet 12.5 mg PO DAILY Other Ambulatory Orders: 30 Day Event Recorder Preventi (Urgent) Timeframe: 1 Day Facility: [facility] - Location: Cardiovascular Services Ordered By: Dr. Chapin Doll Referrals / Follow Up: [facility] [Provider Group] - Within 1 Month Ramirez Shaw, COMMERCIAL PROPERTY MANAGER-C [Primary Care Provider, Family Practice] - Within 2 Weeks Disposition Disposition (needs filled in before D/C Order can be placed): Home, Self Care Charges/Coding Visit Charges Inpatient E&M: [id number] Disch Hosp
--- NOTE | 2025-09-10 14:44 | CASEMGMT ---
Addendum entered by Toyin Rudd 09/10/25 15:18: [facility] returns call and states that the pt's Eliquis is free of charge as they used a savings card for the pt. [facility] states that the Jardiance is 153$. TC to the pt. No answer, VM left with the information and that [facility] closes at 1830 today. Original Note: Pt has a DC order in and new rxs for Jardiance and Eliquis. TC to [facility] who states that they are unable to fill the rxs, Due to insurance reasons. [facility] requests this hand sign writer to have the rxs sent to a different pharmacy. JG CM to the pt's room at this time. Pt has already been discharged and has left the hospital. TC to the pt at this time and updated the pt on the situation. Pt states that he is OK with going through [facility] and that he can come pick the rxs up. Dr Doll sent the rxs to [facility]. TC to [facility] who states that the meds are still processing and that they will call this hand sign writer back with a holguin and availability. CM to continue to follow.
--- OUTSIDE RECORDS SUMMARY | 2025-09-28 18:33 | XMS RPT_ITS | CCD ---
Author Organization [facility] Care Team Providers Care Tool And Die Technician Name Role Phone Ethan DAY CARE HOME MOTHER-C, Jossy Primary Care Provider Ethan DAY CARE HOME MOTHER-C, Jossy Attending Provider Ethan [employer] CARE HOME MOTHER-C, Jossy Referring Provider Juan [employer] CARE HOME MOTHER-C, Anahy Attending Provider Juan DAY CARE HOME MOTHER-C, Anahy Referring Provider Ethan Jossy Referring Unavailable Denzel Longssica Attending Unavailable Ethan Jossy Primary Care Unavailable Ethan Jossy Primary Care Unavailable Ethan Jossy Referring Unavailable Katlyn Longica Attending Unavailable Denzel Longssica Primary Care Unavailable Anahy Martinez Referring Unavailable Anahy Martinez Attending Unavailable Allergies Allergy Classification Reported Allergen(s) Allergy Type Date of Onset Reaction(s) Facility (7 sources) buPROPion Drug Allergy 11-06-2021 [facility] (8 sources) Penicillins; Translations: [Penicillins] Allergy to substance 11-06-2021 Swelling [facility] (1 source) buPROPion Drug Allergy 11-06-2021 [facility] Repository Medications Current Medications Medication Drug [...] L501.5101on 05-30-2025 GGTP 40 IU/L Normal 0-65 [facility] Comment on above: Result Comment: Perf ormed at: - [facility] [address] [id number] Cutter Machine: Antwan Jensen PhD, Phone: [phone] Performed By: #### L 500.4050, L501.9910, L100.0100, L500.4100, L502.0500, L501.9520 #### [facility] [address] [place], [place], [id number] Absolute lymphocyte countOrd ered By: Anahy Martinez on 05-28-2025 Lymphocytes Auto (Unsp spec) [#/Vol] 3.59 10*3/uL 0.83-4.51 [facility] Absolute neutrophil countOrd ered By: Anahy Martinez on 05-28-2025 Neutrophils (Bld) [#/Vol] 4.8 10*3/uL 2.0-7.7 [facility] Ammoniaon 05-28-2025 Ammonia (P) [Moles/Vol] 42.3 umol/L Normal 16-60 [facility] Comment on above: Performed By: #### L 503.0106, L500.4100, L501.9520, L100.0100, L503.6030, L506.0400, L501.5101, L503.5510, L503.6550, L500.4050 #### [facility] [address] [place], [place], [id number] Anion gap in Serum or Plasma Ordered By: Anahy Martinez on 05-28-2025 Anion gap [Moles/Vol] 14 mmol/L 5-15 [facility] Automated lymphocyte count a s percentage of total leukocytesOrdered By: Anahy Martinez on 05-28-2025 Lymphocytes/100 WBC Auto (Unsp spec) 37.1 % 19-41 [facility] BUN/creatinine ratioOrdered By: Anahy Martinez on 05-28-2025 Urea nitrogen/Creatinine [Mass ratio] 19.2 mg/mg 10-20 [facility] Basophil percentageOrdered B y: Anahy Martinez on 05-28-2025 Basophils/100 WBC (Bld) 0.9 % 0-[address] [facility] Bilirubin, totalOrdered By: Anahy Martinez on 05-28-2025 Bilirubin [Mass/Vol] 0.35 mg/dL 0.00-1.30 [facility] CBC W/Diff, Automatedon Absolute Lymph 3.59 X10 3/uL Normal 0.83-4.51 [facility] Comment on above: Performed By: #### L 503.0106, L500.4100, L501.9520, L100.0100, L503.6030, L506.0400, L501.5101, L503.5510, L503.6550, L500.4050 #### [facility] [address] [place], [address] Absolute Neut 4.8 X10 3/uL Normal 2.0-7.7 [facility] Comment on above: Performed By: #### L 503.0106, L500.4100, L501.9520, L100.0100, L503.6030, L506.0400, L501.5101, L503.5510, L503.6550, L500.4050 #### [facility] [address] [place], [address] Basophils/100 WBC (Bld) 0.9 % Normal 0-[address] [facility] Comment on above: Performed By: #### L 503.0106, L500.4100, L501.9520, L100.0100, L503.6030, L506.0400, L501.5101, L503.5510, L503.6550, L500.4050 #### [facility] [address] [place], [address] Eosinophils/100 WBC (Bld) 2.9 % Normal 0-5 [facility] Comment on above: Performed By: #### L 503.0106, L500.4100, L501.9520, L100.0100, L503.6030, L506.0400, L501.5101, L503.5510, L503.6550, L500.4050 #### [facility] [address] [place], [address] Erythrocyte distribution width (RBC) [Ratio] 16.4 % High 11.6-14.6 [facility] Comment on above: Performed By: #### L 503.0106, L500.4100, L501.9520, L100.0100, L503.6030, L506.0400, L501.5101, L503.5510, L503.6550, L500.4050 #### [facility] [address] [place], [address] Hematocrit (Bld) [Volume fraction] 35.8 % Low 40-54 [facility] Comment on above: Performed By: #### L 503.0106, L500.4100, L501.9520, L100.0100, L503.6030, L506.0400, L501.5101, L503.5510, L503.6550, L500.4050 #### [facility] [address] [place], [place], [phone] Hemoglobin (Bld) [Mass/Vol] 11.3 g/dL Low 13.0-16.5 [facility] Comment on above: Performed By: #### L 503.0106, L500.4100, L501.9520, L100.0100, L503.6030, L506.0400, L501.5101, L503.5510, L503.6550, L500.4050 #### [facility] [address] [place], [place], [phone] ([phone] IG% 0.700 Normal 0.0-0.9 [facility] Comment on above: Result Comment: IG% - Immature Granulocytes (promyelocytes, myelocytes and metamyelocytes) > 1% indicates that a LEFT SHIFT is Present. Performed By: #### L 503.0106, L500.4100, L501.9520, L100.0100, L503.6030, L506.0400, L501.5101, L503.5510, L503.6550, L500.4050 #### [facility] [address] [place], [place], [phone] (350 Lymphocytes/100 WBC (Bld) 37.1 % Normal 19-41 [facility] Comment on above: Performed By: #### L 503.0106, L500.4100, L501.9520, L100.0100, L503.6030, L506.0400, L501.5101, L503.5510, L503.6550, L500.4050 #### [facility] [address] [place], [address] MCH (RBC) [Entitic mass] 22.3 pg Low 27.0-32.0 [facility] Comment on above: Performed By: #### L 503.0106, L500.4100, L501.9520, L100.0100, L503.6030, L506.0400, L501.5101, L503.5510, L503.6550, L500.4050 #### [facility] [address] [place], [address] MCHC (RBC) [Mass/Vol] 31.6 g/dL Low 32-36 [facility] Comment on above: Performed By: #### L 503.0106, L500.4100, L501.9520, L100.0100, L503.6030, L506.0400, L501.5101, L503.5510, L503.6550, L500.4050 #### [facility] [address] [place], [address] MCV (RBC) [Entitic vol] 70.8 fL Low 80-94 [facility] Comment on above: Performed By: #### L 503.0106, L500.4100, L501.9520, L100.0100, L503.6030, L506.0400, L501.5101, L503.5510, L503.6550, L500.4050 #### [facility] [address] [place], [address] Monocytes/100 WBC (Bld) 9.1 % Normal 0-[address] [facility] Comment on above: Performed By: #### L 503.0106, L500.4100, L501.9520, L100.0100, L503.6030, L506.0400, L501.5101, L503.5510, L503.6550, L500.4050 #### [facility] [address] [place], [place], [phone] (231) Neutrophils/100 WBC (Bld) 49.3 % Normal 47-70 [facility] Comment on above: Performed By: #### L 503.0106, L500.4100, L501.9520, L100.0100, L503.6030, L506.0400, L501.5101, L503.5510, L503.6550, L500.4050 #### [facility] [address] [place], [place], [phone] (528) Nucleated RBC (Bld) [#/Vol] 0 10*3/uL Normal 0-5 [facility] Comment on above: Performed By: #### L 503.0106, L500.4100, L501.9520, L100.0100, L503.6030, L506.0400, L501.5101, L503.5510, L503.6550, L500.4050 #### [facility] [address] [place], [place], [phone] (605) Platelet mean volume (Bld) [Entitic vol] 9.2 fL Normal 6.2-12.0 [facility] Comment on above: Performed By: #### L 503.0106, L500.4100, L501.9520, L100.0100, L503.6030, L506.0400, L501.5101, L503.5510, L503.6550, L500.4050 #### [facility] [address] [place], [place], [phone] (960) Platelets (Bld) [#/Vol] 342 10*3/uL Normal 150-450 [facility] Comment on above: Performed By: #### L 503.0106, L500.4100, L501.9520, L100.0100, L503.6030, L506.0400, L501.5101, L503.5510, L503.6550, L500.4050 #### [facility] [address] [place], [place], [phone] (550) RBC (Bld) [#/Vol] 5.06 10*6/uL Normal 4.6-6.2 [facility] Comment on above: Performed By: #### L 503.0106, L500.4100, L501.9520, L100.0100, L503.6030, L506.0400, L501.5101, L503.5510, L503.6550, L500.4050 #### [facility] [address] [place], [address] RDW SD 41.1 fl Normal 35.1-43.9 [facility] Comment on above: Performed By: #### L 503.0106, L500.4100, L501.9520, L100.0100, L503.6030, L506.0400, L501.5101, L503.5510, L503.6550, L500.4050 #### [facility] [address] [place], [place], [id number] (102) WBC (Bld) [#/Vol] 9.7 10*3/uL Normal 4.4-11.0 [facility] Comment on above: Performed By: #### L 503.0106, L500.4100, L501.9520, L100.0100, L503.6030, L506.0400, L501.5101, L503.5510, L503.6550, L500.4050 #### [facility] [address] [place], [address] Calculated very low density lipoprotein (VLDL) cholesterol measurementOrdered By: Anahy Martinez on 05-28-2025 Calculated very low density lipoprotein (VLDL) cholesterol measurement 72 mg/dL High 5-40 [facility] Carbon dioxide, total [Moles /volume] in Central venous bloodOrdered By: Anahy Martinez on 05-28-2025 CO2 [Moles/Vol] 22.9 mmol/L 21.0-32.0 [facility] Chloride assayOrdered By: Terrie Martinez on 05-28-2025 Chloride [Moles/Vol] 102 mmol/L 98-108 [facility] Comprehensive Metabolic Prof ilon 05-28-2025 Albumin [Mass/Vol] 4.6 g/dL Normal 3.5-5.0 [facility] Comment on above: Performed By: #### L 503.0106, L500.4100, L501.9520, L100.0100, L503.6030, L506.0400, L501.5101, L503.5510, L503.6550, L500.4050 #### [facility] [address], [address] Albumin/Globulin [Mass ratio] 1.7 {ratio} Normal 0.9-2.4 [facility] Comment on above: Performed By: #### L 503.0106, L500.4100, L501.9520, L100.0100, L503.6030, L506.0400, L501.5101, L503.5510, L503.6550, L500.4050 #### [facility] [address] [place], [address] ALK PHOS 132 U/L High 40-129 [facility] Comment on above: Performed By: #### L 503.0106, L500.4100, L501.9520, L100.0100, L503.6030, L506.0400, L501.5101, L503.5510, L503.6550, L500.4050 #### [facility] [address] [place], [place], [phone] ALT [Catalytic activity/Vol] 20 U/L Normal <=46 [facility] Comment on above: Performed By: #### L 503.0106, L500.4100, L501.9520, L100.0100, L503.6030, L506.0400, L501.5101, L503.5510, L503.6550, L500.4050 #### [facility] [address] [place], [place], [phone] AST [Catalytic activity/Vol] 20 U/L Normal <=37 [facility] Comment on above: Performed By: #### L 503.0106, L500.4100, L501.9520, L100.0100, L503.6030, L506.0400, L501.5101, L503.5510, L503.6550, L500.4050 #### [facility] [address] [place], [place], [phone] Bilirubin [Mass/Vol] 0.35 mg/dL Normal 0.00-1.30 [facility] Comment on above: Performed By: #### L 503.0106, L500.4100, L501.9520, L100.0100, L503.6030, L506.0400, L501.5101, L503.5510, L503.6550, L500.4050 #### [facility] [address] [place], [place], [id number] BUN/CRE 19.2 RATIO Normal 10-20 [facility] Comment on above: Performed By: #### L 503.0106, L500.4100, L501.9520, L100.0100, L503.6030, L506.0400, L501.5101, L503.5510, L503.6550, L500.4050 #### [facility] [address] [place], [address] Calcium [Mass/Vol] 9.6 mg/dL Normal 7.6-11.0 [facility] Comment on above: Performed By: #### L 503.0106, L500.4100, L501.9520, L100.0100, L503.6030, L506.0400, L501.5101, L503.5510, L503.6550, L500.4050 #### [facility] [address] [place], [place], [phone] (089) Chloride [Moles/Vol] 102 mmol/L Normal 98-108 [facility] Comment on above: Performed By: #### L 503.0106, L500.4100, L501.9520, L100.0100, L503.6030, L506.0400, L501.5101, L503.5510, L503.6550, L500.4050 #### [facility] [address] [place], [place], [id number] CO2 [Moles/Vol] 22.9 mmol/L Normal 21.0-32.0 [facility] Comment on above: Performed By: #### L 503.0106, L500.4100, L501.9520, L100.0100, L503.6030, L506.0400, L501.5101, L503.5510, L503.6550, L500.4050 #### [facility] [address] [place], [place], [id number] Creatinine [Mass/Vol] 0.87 mg/dL Normal 0.70-1.20 [facility] Comment on above: Performed By: #### L 503.0106, L500.4100, L501.9520, L100.0100, L503.6030, L506.0400, L501.5101, L503.5510, L503.6550, L500.4050 #### [facility] [address] [place], [place], [id number] GAP 14 Normal 5-15 [facility] Comment on above: Performed By: #### L 503.0106, L500.4100, L501.9520, L100.0100, L503.6030, L506.0400, L501.5101, L503.5510, L503.6550, L500.4050 #### [facility] [address] [place], [address] GFR/1.73 sq M.predicted among non-blacks MDRD (S/P/Bld) [Vol rate/Area] 104 mL/min/{1.73_m2} Normal >60 [facility] Comment on above: Result Comment: mL/m in/1.73m2 CKD-EPI Creatinine Equation (2020) Performed By: #### L 503.0106, L500.4100, L501.9520, L100.0100, L503.6030, L506.0400, L501.5101, L503.5510, L503.6550, L500.4050 #### [facility] [address] [place], [address] Globulin (S) [Mass/Vol] 2.7 g/dL Normal 2.2-4.2 [facility] Comment on above: Performed By: #### L 503.0106, L500.4100, L501.9520, L100.0100, L503.6030, L506.0400, L501.5101, L503.5510, L503.6550, L500.4050 #### [facility] [address] [place], [address] Glucose [Mass/Vol] 101 mg/dL High 70-99 [facility] Comment on above: Performed By: #### L 503.0106, L500.4100, L501.9520, L100.0100, L503.6030, L506.0400, L501.5101, L503.5510, L503.6550, L500.4050 #### [facility] [address] [place], [address] Potassium [Moles/Vol] 3.6 mmol/L Normal 3.3-5.1 [facility] Comment on above: Performed By: #### L 503.0106, L500.4100, L501.9520, L100.0100, L503.6030, L506.0400, L501.5101, L503.5510, L503.6550, L500.4050 #### [facility] [address] [place], [address] Sodium [Moles/Vol] 138 mmol/L Normal 133-145 [facility] Comment on above: Performed By: #### L 503.0106, L500.4100, L501.9520, L100.0100, L503.6030, L506.0400, L501.5101, L503.5510, L503.6550, L500.4050 #### [facility] [address] [place], [address] T PROT 7.3 g/dL Normal 5.9-8.4 [facility] Comment on above: Performed By: #### L 503.0106, L500.4100, L501.9520, L100.0100, L503.6030, L506.0400, L501.5101, L503.5510, L503.6550, L500.4050 #### [facility] [address] [place], [address] Urea nitrogen [Mass/Vol] 17 mg/dL Normal 4-19 [facility] Comment on above: Performed By: #### L 503.0106, L500.4100, L501.9520, L100.0100, L503.6030, L506.0400, L501.5101, L503.5510, L503.6550, L500.4050 #### [facility] [address] [place], [address] Eosinophil percentageOrdered By: Anahy Martinez on 05-28-2025 Eosinophils/100 WBC (Bld) 2.9 % 0-5 [facility] Erythrocyte distribution wid th ratioOrdered By: Anahy Martinez on 05-28-2025 Erythrocyte distribution width (RBC) [Ratio] 16.4 % High 11.6-14.6 [facility] Erythrocyte distribution wid th standard deviationOrdered By: Anahy Martinez on 05-28-2025 Erythrocyte distribution width (RBC) [Ratio] 41.1 fl 35.1-43.9 [facility] Ferritinon 05-28-2025 Ferritin [Mass/Vol] 351 ng/mL Normal 37-417 [facility] Comment on above: Performed By: #### L 500.4050, L501.9910, L100.0100, L500.4100, L502.0500, L501.9520 #### [facility] [address] [place], [address] Gamma glutamyl transferase ( GGT) measurementOrdered By: Anahy Martinez on 05-28-2025 Amylase [Catalytic activity/Vol] 40 U/L 0-65 [facility] Comment on above: Performed at: [address] [id number] Director: Antwan Jensen PhD, Phone: [phone] Glomerular filtration rate ( GFR) estimation/1.73 sq m using serum, plasma, or whole bOrdered By: Anahy Martinez on 05-28-2025 GFR/1.73 sq M.predicted among non-blacks MDRD (S/P/Bld) [Vol rate/Area] 104 mL/min/{1.73_m2} >60 [facility] Comment on above: mL/min/1.73m2 CKD-EP I Creatinine Equation (2020) Hematocrit Auto (Bld) [Volum e fraction]Ordered By: Anahy Martinez on 05-28-2025 Hematocrit (Bld) [Volume fraction] 35.8 % Low 40-54 [facility] Hemoglobin measurementOrdere d By: Anahy Martinez on 05-28-2025 Hemoglobin (Bld) [Mass/Vol] 11.3 g/dL Low 13.0-16.5 [facility] Immature granulocytes/100 WB C Auto (Bld)Ordered By: Anahy Martinez on 05-28-2025 Immature granulocytes/100 WBC (Bld) 0.700 % 0.0-0.9 [facility] Comment on above: IG% - Immature Granu locytes (promyelocytes, myelocytes and metamyelocytes) > 1% indicates that a LEFT SHIFT is Present. Iron measurement (mass/mass) Ordered By: Anahy Martinez on 05-28-2025 Iron (Unsp spec) [Mass/Mass] 134 ug/dL 65-175 [facility] Iron+Iron Binding Capacityon 05-28-2025 Iron [Mass/Vol] 134 ug/dL Normal 65-175 [facility] Comment on above: Performed By: #### L 500.4050, L501.9910, L100.0100, L500.4100, L502.0500, L501.9520 #### [facility] [address] [place], [address] IRON SATURATION 36.0 Normal 9-55 [facility] Comment on above: Performed By: #### L 500.4050, L501.9910, L100.0100, L500.4100, L502.0500, L501.9520 #### [facility] [address] [place], [address] TIBC 370 ug/dL Normal 250-450 [facility] Comment on above: Performed By: #### L 500.4050, L501.9910, L100.0100, L500.4100, L502.0500, L501.9520 #### [facility] [address] [place], [address] UIBC 236 ug/dL Normal 228-428 [facility] Comment on above: Performed By: #### L 500.4050, L501.9910, L100.0100, L500.4100, L502.0500, L501.9520 #### [facility] [address] [place], [address] LDL calc ser/plasOrdered By: Anahy Martinez on 05-28-2025 Cholesterol in LDL [Mass/Vol] 15 mg/dL [facility] Comment on above: Fvsqmbxguw=515-399 m g/dL & Higher Oszz=921 mg/dL or greaterFriedwald Equation for LDL-C Laboratory - Chemistry and C hemistry - challengeOrdered By: Anahy Martinez on 05-28-2025 AST [Catalytic activity/Vol] 20 U/L <38 [facility] Lipid Profileon 05-28-2025 CHOL:HDL 2.85 Normal [facility] Comment on above: Performed By: #### L 500.4050, L501.9910, L100.0100, L500.4100, L502.0500, L501.9520 #### [facility] [address] [place], [address] Cholesterol [Mass/Vol] 133 mg/dL Normal <=200 [facility] Comment on above: Result Comment: Chol esterol level, Desirable <200 mg/dL Borderline high cholesterol 200-239 mg/dL High cholesterol >=240 mg/dL Recommendations of the NCEP Adult Treatment Panel for the following risk-cutoff thresholds for the [place] population. Performed By: #### L 500.4050, L501.9910, L100.0100, L500.4100, L502.0500, L501.9520 #### [facility] [address] [place], [address] Cholesterol in HDL [Mass/Vol] 47 mg/dL Normal [facility] Comment on above: Result Comment: Brenda onal Cholesterol Education Program (NCEP) guidelines: <40 mg/dL: Low HDL-cholesterol (major risk factor for CHD) >= 60 mg/dL: High HDL-cholesterol (negative risk factor for CHD) HDL-cholesterol is affected by a number of factors, e.g. smoking, exercise, hormones, sex and age. Performed By: #### L 500.4050, L501.9910, L100.0100, L500.4100, L502.0500, L501.9520 #### [facility] [address] [place], [address] Cholesterol in LDL [Mass/Vol] 15 mg/dL Normal [facility] Comment on above: Result Comment: Bord vyfhtg=939-240 mg/dL Higher Sast=523 mg/dL or greater Friedwald Equation for LDL-C Performed By: #### L 500.4050, L501.9910, L100.0100, L500.4100, L502.0500, L501.9520 #### [facility] [address] [place], [place], [phone] Cholesterol in VLDL [Mass/Vol] 72 mg/dL High 5-40 [facility] Comment on above: Performed By: #### L 500.4050, L501.9910, L100.0100, L500.4100, L502.0500, L501.9520 #### [facility] [address] [place], [address] ([phone] Triglyceride [Mass/Vol] 358 mg/dL High [facility] Comment on above: Result Comment: The drugs N-Acetylcysteine and Metamizole may falsely depress this assay. Normal range: <150 mg/dL Borderline High: 150-199 mg/dL High: 200-499 mg/dL Very High: >500 mg/dL Performed By: #### L 500.4050, L501.9910, L100.0100, L500.4100, L502.0500, L501.9520 #### [facility] [address] [place], [place], [id number] MCV (mean corpuscular volume ) determinationOrdered By: Anahy Martinez on 05-28-2025 MCV (RBC) [Entitic vol] 70.8 fL Low 80-[address] [facility] Mean corpuscular hemoglobin (MCH) determinationOrdered By: Anahy Martinez on 05-28-2025 MCH (RBC) [Entitic mass] 22.3 pg Low 27.0-32.0 [facility] Mean corpuscular hemoglobin concentration (MCHC) determinationOrdered By: Anahy Martinez on 05-28-2025 MCHC (RBC) [Mass/Vol] 31.6 g/dL Low 32-36 [facility] Mean platelet volume determi nationOrdered By: Anahy Martinez on 05-28-2025 Platelet mean volume (Bld) [Entitic vol] 9.2 fL 6.2-12.0 [facility] Monocyte percentageOrdered B y: Anahy Martinez on 05-28-2025 Monocytes/100 WBC (Bld) 9.1 % 0-[address] [facility] Neutrophil percentageOrdered By: Anahy Martinez on 05-28-2025 Neutrophils/100 WBC (Bld) 49.3 % 47-70 [facility] No Panel InformationOrdered By: Anahy Martinez on 05-28-2025 Unsaturated Iron Binding Capacity 236 ug/dL 228-428 [facility] Nucleated red blood cell per centageOrdered By: Anahy Martinez on 05-28-2025 Nucleated RBC/100 WBC (Bld) [Ratio] 0 % 0-5 [facility] Platelet countOrdered By: Terrie Martinez on 05-28-2025 Platelets (Bld) [#/Vol] 342 10*3/uL 150-450 [facility] Potassium measurement (mass/ volume)Ordered By: Anahy Martinez on 05-28-2025 Potassium (Unsp spec) [Mass/Vol] 3.6 mmol/L 3.3-5.1 [facility] RBC Auto (Bld) [#/Vol]Ordere d By: Anahy Martinez on 05-28-2025 RBC (Bld) [#/Vol] 5.06 10*6/uL 4.6-6.2 [facility] Screening total cholesterol/ high density lipoprotein (HDL) cholesterol ratioOrdered By: Anahy Martinez on 05-28-2025 Cholesterol.total/Choles terol in HDL [Mass ratio] 2.85 {ratio} [facility] Serum creatinine measurement (mass/volume)Ordered By: Anahy Martinez on 05-28-2025 Creatinine [Mass/Vol] 0.87 mg/dL 0.70-1.20 [facility] Serum globulin measurementOr dered By: Anahy Martinez on 05-28-2025 Globulin (S) [Mass/Vol] 2.7 g/dL 2.2-4.[address] [facility] Serum glucose measurement (m ass/volume)Ordered By: Anahy Martinez on 05-28-2025 Glucose [Mass/Vol] 101 mg/dL High 70-99 [facility] Serum or plasma alanine ferrari otransferase (ALT) measurementOrdered By: Anahy Martinez on 05-28-2025 ALT [Catalytic activity/Vol] 20 U/L <47 [facility] Serum or plasma albumin nixon urement (mass/volume)Ordered By: Anahy Martinez on 05-28-2025 Albumin [Mass/Vol] 4.6 g/dL 3.5-5.0 [facility] Serum or plasma albumin/glob ulin mass ratioOrdered By: Anahy Martinez on 05-28-2025 Albumin/Globulin [Mass ratio] 1.7 {ratio} 0.9-2.4 [facility] Serum or plasma alkaline laurie sphatase measurementOrdered By: Anahy Martinez 05-28-2025 ALP [Catalytic activity/Vol] 132 U/L High 40-129 [facility] Serum or plasma calcium nixon urement (mass/volume)Ordered By: Anahy Martinez 05-28-2025 Calcium [Mass/Vol] 9.6 mg/dL 7.6-11.0 [facility] Serum or plasma cholesterol in HDL measurement (mass/volume)Ordered By: Anahy Martinez on 05-28-2025 Cholesterol in HDL [Mass/Vol] 47 mg/dL >40 [facility] Comment on above: National Cholesterol Education Program (NCEP) guidelines:<40 mg/dL: Low HDL-cholesterol (major risk factor for CHD)>= 60 mg/dL: High HDL-cholesterol (negative risk factor for CHD)HDL-cholesterol is affected by a number of factors, e.g. smoking, exercise, hormones, sex and age. Serum or plasma cholesterol measurement (mass/volume)Ordered By: Anahy Martinez on 05-28-2025 Cholesterol [Mass/Vol] 133 mg/dL <201 [facility] Comment on above: Cholesterol level, D esirable <200 mg/dLBorderline high cholesterol 200-239 mg/dLHigh cholesterol >=240 mg/dLRecommendations of the NCEP Adult Treatment Panel for the following risk-cutoff thresholds for the [place] population. Serum or plasma ferritin naty surement (mass/volume)Ordered By: Anahy Martinez on 05-28-2025 Ferritin [Mass/Vol] 351 ng/mL 37-417 [facility] Serum or plasma iron saturat ion measurement (mass fraction)Ordered By: Anahy Martinez on 05-28-2025 Iron saturation [Mass fraction] 36.0 % 9-55 [facility] Serum or plasma urea nitroge n measurement (mass/volume)Ordered By: Anahy Martinez on 05-28-2025 Urea nitrogen [Mass/Vol] 17 mg/dL 4-19 [facility] Sodium levelOrdered By: Adrianna Martinez on 05-28-2025 Sodium [Moles/Vol] 138 mmol/L 133-145 [facility] T4 Free Directon 05-28-2025 T4 FREE DIRECT 1.40 ng/dL Normal 0.76-1.46 [facility] Comment on above: Performed By: #### L 500.4050, L501.9910, L100.0100, L500.4100, L502.0500, L501.9520 #### [facility] Laboratory [facility] [place], [address] T4 freeOrdered By: Anahy gamez on 05-28-2025 Free T4 [Mass/Vol] 1.40 ng/dL 0.76-1.46 [facility] TSH DL <= 0.005 mIU/L QnOrde red By: Anahy Martinez on 05-28-2025 TSH Qn 5.620 uIU/mL High 0.300-4.200 [facility] Thyroid Stim Hormone (TSH)on 05-28-2025 TSH 5.620 uIU/mL High 0.300-4.200 [facility] Comment on above: Performed By: #### L 503.0106, L500.4100, L501.9520, L100.0100, L503.6030, L506.0400, L501.5101, L503.5510, L503.6550, L500.4050 #### [facility] [address] [place], [address] Total proteinOrdered By: Jaleel Martinez on 05-28-2025 Protein [Mass/Vol] 7.3 g/dL 5.9-8.4 [facility] Triglycerides measurementOrd ered By: Anahy Martinez on 05-28-2025 Triglyceride [Mass/Vol] 358 mg/dL High <[address] [facility] Comment on above: The drugs N-Acetylcy steine and Metamizole may falsely depress this assay. Normal range: <150 mg/dLBorderline High: 150-199 mg/dLHigh: 200-499 mg/dLVery High: >500 mg/dL Venous blood ammonia measure mentOrdered By: Anahy Martinez on 05-28-2025 Ammonia (P) [Moles/Vol] 42.3 umol/L 16-60 [facility] Vitamin B12on 05-28-2025 Cobalamin (Vitamin B12) [Mass/Vol] 400 pg/mL Normal 180-914 [facility] Comment on above: Performed By: #### L 500.4050, L501.9910, L100.0100, L500.4100, L502.0500, L501.9520 #### [facility] [address] [facility] [place], [address] Vitamin B12 ser/plasOrdered By: Anahy Martinez on 05-28-2025 Cobalamin (Vitamin B12) [Mass/Vol] 400 pg/mL 180-914 [facility] White blood cell (WBC) count Ordered By: Anahy Martinez on 05-28-2025 WBC (Bld) [#/Vol] 9.7 10*3/uL 4.4-11.0 [facility] Absolute lymphocyte countOrd ered By: [facility] Jossy Long on 05-22-2025 Lymphocytes Auto (Unsp spec) [#/Vol] 3.21 10*3/uL 0.83-4.51 [facility] Absolute neutrophil countOrd ered By: [facility] Long on 05-22-2025 Neutrophils (Bld) [#/Vol] 6.5 10*3/uL 2.0-7.7 [facility] Anion gap in Serum or Plasma Ordered By: [facility] Ethan on 05-22-2025 Anion gap [Moles/Vol] 15 mmol/L - [facility] Automated lymphocyte count a s percentage of total leukocytesOrdered By: [facility] on 05-22-2025 Lymphocytes/100 WBC Auto (Unsp spec) 28.5 % [facility] BUN/creatinine ratioOrdered By: [facility] on 05-22-2025 Urea nitrogen/Creatinine [Mass ratio] 17.9 mg/mg - [facility] Basic Metabolic Profile (BMP )on 05-22-2025 BUN/CRE 17.9 RATIO Normal - [facility] Comment on above: Performed By: #### L 500.4050, L501.9910, L100.0100, L500.4100, L502.0500, L501.9520 #### [facility] [address] [place], [address] Calcium [Mass/Vol] 10.1 mg/dL Normal 7.6-11.0 [facility] Comment on above: Performed By: #### L 500.4050, L501.9910, L100.0100, L500.4100, L502.0500, L501.9520 #### [facility] [address] [place], [address] Chloride [Moles/Vol] 102 mmol/L Normal 98-108 [facility] Comment on above: Performed By: #### L 500.4050, L501.9910, L100.0100, L500.4100, L502.0500, L501.9520 #### [facility] [address] [place], [address] CO2 [Moles/Vol] 20.9 mmol/L Low 21.0-32.0 [facility] Comment on above: Performed By: #### L 500.4050, L501.9910, L100.0100, L500.4100, L502.0500, L501.9520 #### [facility] [address] [place], [address] Creatinine [Mass/Vol] 0.81 mg/dL Normal 0.70-1.20 [facility] Comment on above: Performed By: #### L 500.4050, L501.9910, L100.0100, L500.4100, L502.0500, L501.9520 #### [facility] [address] [place], [address] GAP 15 Normal 5-15 [facility] Comment on above: Performed By: #### L 500.4050, L501.9910, L100.0100, L500.4100, L502.0500, L501.9520 #### [facility] [address] [place], [address] GFR/1.73 sq M.predicted among non-blacks MDRD (S/P/Bld) [Vol rate/Area] 106 mL/min/{1.73_m2} Normal >60 [facility] Comment on above: Result Comment: mL/m in/1.73m2 CKD-EPI Creatinine Equation (2020) Performed By: #### L 500.4050, L501.9910, L100.0100, L500.4100, L502.0500, L501.9520 #### [facility] [address] [place], [address] Glucose [Mass/Vol] 184 mg/dL High 70-99 [facility] Comment on above: Performed By: #### L 500.4050, L501.9910, L100.0100, L500.4100, L502.0500, L501.9520 #### [facility] [address] [place], [address] Potassium [Moles/Vol] 4.1 mmol/L Normal 3.3-5.1 [facility] Comment on above: Performed By: #### L 500.4050, L501.9910, L100.0100, L500.4100, L502.0500, L501.9520 #### [facility] [address] [place], [address] Sodium [Moles/Vol] 137 mmol/L Normal 133-145 [facility] Comment on above: Performed By: #### L 500.4050, L501.9910, L100.0100, L500.4100, L502.0500, L501.9520 #### [facility] [address] [place], [address] Urea nitrogen [Mass/Vol] 14 mg/dL Normal 4-19 [facility] Comment on above: Performed By: #### L 500.4050, L501.9910, L100.0100, L500.4100, L502.0500, L501.9520 #### [facility] [address] [place], [place], [address] Basophil percentageOrdered B y: [facility] Jossy Long on 05-22-2025 Basophils/100 WBC (Bld) 0.7 % 0-[address] [facility] CBC W/Diff, Automatedon 08-0 Absolute Lymph 3.21 X10 3/uL Normal 0.83-4.51 [facility] Comment on above: Performed By: #### L 500.4050, L501.9910, L100.0100, L500.4100, L502.0500, L501.9520 #### [facility] [address] [place], [address] Absolute Neut 6.5 X10 3/uL Normal 2.0-7.7 [facility] Comment on above: Performed By: #### L 500.4050, L501.9910, L100.0100, L500.4100, L502.0500, L501.9520 #### [facility] [address] [place], [address] Basophils/100 WBC (Bld) 0.7 % Normal 0-[address] [facility] Comment on above: Performed By: #### L 500.4050, L501.9910, L100.0100, L500.4100, L502.0500, L501.9520 #### [facility] [address] [place], [address] Eosinophils/100 WBC (Bld) 2.0 % Normal 0-5 [facility] Comment on above: Performed By: #### L 500.4050, L501.9910, L100.0100, L500.4100, L502.0500, L501.9520 #### [facility] [address] [place], [address] Erythrocyte distribution width (RBC) [Ratio] 16.3 % High 11.6-14.6 [facility] Comment on above: Performed By: #### L 500.4050, L501.9910, L100.0100, L500.4100, L502.0500, L501.9520 #### [facility] [address] [place], [address] Hematocrit (Bld) [Volume fraction] 37.4 % Low 40-54 [facility] Comment on above: Performed By: #### L 500.4050, L501.9910, L100.0100, L500.4100, L502.0500, L501.9520 #### [facility] [address] [place], [address] Hemoglobin (Bld) [Mass/Vol] 11.9 g/dL Low 13.0-16.5 [facility] Comment on above: Performed By: #### L 500.4050, L501.9910, L100.0100, L500.4100, L502.0500, L501.9520 #### [facility] [address] [place], [address] IG% 1.400 High 0.0-0.9 [facility] Comment on above: Result Comment: IG% - Immature Granulocytes (promyelocytes, myelocytes and metamyelocytes) > 1% indicates that a LEFT SHIFT is Present. Performed By: #### L 500.4050, L501.9910, L100.0100, L500.4100, L502.0500, L501.9520 #### [facility] [address] [place], [address] Lymphocytes/100 WBC (Bld) 28.5 % Normal 19-41 [facility] Comment on above: Performed By: #### L 500.4050, L501.9910, L100.0100, L500.4100, L502.0500, L501.9520 #### [facility] [address] [place], [address] MCH (RBC) [Entitic mass] 22.8 pg Low 27.0-32.0 [facility] Comment on above: Performed By: #### L 500.4050, L501.9910, L100.0100, L500.4100, L502.0500, L501.9520 #### [facility] [address] [place], [address] MCHC (RBC) [Mass/Vol] 31.8 g/dL Low 32-36 [facility] Comment on above: Performed By: #### L 500.4050, L501.9910, L100.0100, L500.4100, L502.0500, L501.9520 #### [facility] [address] [place], [address] MCV (RBC) [Entitic vol] 71.6 fL Low 80-[address] [facility] Comment on above: Performed By: #### L 500.4050, L501.9910, L100.0100, L500.4100, L502.0500, L501.9520 #### [facility] [address] [place], [address] Monocytes/100 WBC (Bld) 9.7 % Normal 0-[address] [facility] Comment on above: Performed By: #### L 500.4050, L501.9910, L100.0100, L500.4100, L502.0500, L501.9520 #### [facility] [address] [place], [address] Neutrophils/100 WBC (Bld) 57.7 % Normal 47-70 [facility] Comment on above: Performed By: #### L 500.4050, L501.9910, L100.0100, L500.4100, L502.0500, L501.9520 #### [facility] [address] [place], [address] Nucleated RBC (Bld) [#/Vol] 0 10*3/uL Normal 0-5 [facility] Comment on above: Performed By: #### L 500.4050, L501.9910, L100.0100, L500.4100, L502.0500, L501.9520 #### [facility] [address] [place], [address] Platelet mean volume (Bld) [Entitic vol] 9.1 fL Normal 6.2-12.0 [facility] Comment on above: Performed By: #### L 500.4050, L501.9910, L100.0100, L500.4100, L502.0500, L501.9520 #### [facility] [address] [place], [address] Platelets (Bld) [#/Vol] 329 10*3/uL Normal 150-450 [facility] Comment on above: Performed By: #### L 500.4050, L501.9910, L100.0100, L500.4100, L502.0500, L501.9520 #### [facility] [address] [place], [address] RBC (Bld) [#/Vol] 5.22 10*6/uL Normal 4.6-6.2 [facility] Comment on above: Performed By: #### L 500.4050, L501.9910, L100.0100, L500.4100, L502.0500, L501.9520 #### [facility] [address] [place], [address] RDW SD 40.7 fl Normal 35.1-43.9 [facility] Comment on above: Performed By: #### L 500.4050, L501.9910, L100.0100, L500.4100, L502.0500, L501.9520 #### [facility] [address] [place], [address] WBC (Bld) [#/Vol] 11.3 10*3/uL High 4.4-11.0 [facility] Comment on above: Performed By: #### L 500.4050, L501.9910, L100.0100, L500.4100, L502.0500, L501.9520 #### [facility] [address] [place], [address] Carbon dioxide, total [Moles /volume] in Central venous bloodOrdered By: [facility] Jossy Long on 05-22-2025 CO2 [Moles/Vol] 20.9 mmol/L Low 21.0-32.0 [facility] Chloride assayOrdered By: [facility] Jossyashlyn Long on 05-22-2025 Chloride [Moles/Vol] 102 mmol/L 98-108 [facility] Eosinophil percentageOrdered By: [facility] Jossy Long on 05-22-2025 Eosinophils/100 WBC (Bld) 2.0 % 0-5 [facility] Erythrocyte distribution wid th ratioOrdered By: [facility] Jossy Long on 05-22-2025 Erythrocyte distribution width (RBC) [Ratio] 16.3 % High 11.6-14.6 [facility] Erythrocyte distribution wid th standard deviationOrdered By: [facility] Jossy Long on 05-22-2025 Erythrocyte distribution width (RBC) [Ratio] 40.7 fl 35.1-43.9 [facility] Glomerular filtration rate ( GFR) estimation/1.73 sq m using serum, plasma, or whole bOrdered By: [facility] Jossy Long on 05-22-2025 GFR/1.73 sq M.predicted among non-blacks MDRD (S/P/Bld) [Vol rate/Area] 106 mL/min/{1.73_m2} >60 [facility] Comment on above: mL/min/1.73m2 CKD-EP I Creatinine Equation (2020) Hematocrit Auto (Bld) [Volum e fraction]Ordered By: [facility] Jossy Long on 05-22-2025 Hematocrit (Bld) [Volume fraction] 37.4 % Low 40-54 [facility] Hemoglobin measurementOrdere d By: [facility] Jossy Long on 05-22-2025 Hemoglobin (Bld) [Mass/Vol] 11.9 g/dL Low 13.0-16.5 [facility] Immature granulocytes/100 WB C Auto (Bld)Ordered By: [facility] Jossy Long on 05-22-2025 Immature granulocytes/100 WBC (Bld) 1.400 % High 0.0-0.9 [facility] Comment on above: IG% - Immature Granu locytes (promyelocytes, myelocytes and metamyelocytes) > 1% indicates that a LEFT SHIFT is Present. MCV (mean corpuscular volume ) determinationOrdered By: [facility] Jossy Long on 05-22-2025 MCV (RBC) [Entitic vol] 71.6 fL Low 80-94 [facility] Mean corpuscular hemoglobin (MCH) determinationOrdered By: [facility] Jossy Long on 05-22-2025 MCH (RBC) [Entitic mass] 22.8 pg Low 27.0-32.0 [facility] Mean corpuscular hemoglobin concentration (MCHC) determinationOrdered By: [facility] Jossy Long on 05-22-2025 MCHC (RBC) [Mass/Vol] 31.8 g/dL Low 32-36 [facility] Mean platelet volume determi nationOrdered By: [facility] Jossy Long on 05-22-2025 Platelet mean volume (Bld) [Entitic vol] 9.1 fL 6.2-12.0 [facility] Monocyte percentageOrdered B y: [facility] Jossy Long on 05-22-2025 Monocytes/100 WBC (Bld) 9.7 % 0-[address] [facility] Neutrophil percentageOrdered By: [facility] Jossy Long on 05-22-2025 Neutrophils/100 WBC (Bld) 57.7 % 47-70 [facility] Nucleated red blood cell per centageOrdered By: [facility] Jossy Long on 05-22-2025 Nucleated RBC/100 WBC (Bld) [Ratio] 0 % 0-5 [facility] Platelet countOrdered By: [facility] Jossy Long on 05-22-2025 Platelets (Bld) [#/Vol] 329 10*3/uL 150-450 [facility] Potassium measurement (mass/ volume)Ordered By: [facility] Jossy Long on 05-22-2025 Potassium (Unsp spec) [Mass/Vol] 4.1 mmol/L 3.3-5.1 [facility] RBC Auto (Bld) [#/Vol]Ordere d By: [facility] Jossy Long on 05-22-2025 RBC (Bld) [#/Vol] 5.22 10*6/uL 4.6-6.2 [facility] Serum creatinine measurement (mass/volume)Ordered By: Faustino Long on 05-22-2025 Creatinine [Mass/Vol] 0.81 mg/dL 0.70-1.20 [facility] Serum glucose measurement (m ass/volume)Ordered By: [facility] Jossy Long on 05-22-2025 Glucose [Mass/Vol] 184 mg/dL High 70-99 [facility] Serum or plasma calcium nixon urement (mass/volume)Ordered By: [facility] Jossy Ethna on 05-22-2025 Calcium [Mass/Vol] 10.1 mg/dL 7.6-11.0 [facility] Serum or plasma urea nitroge n measurement (mass/volume)Ordered By: [facility] Jossy Ethan on 05-22-2025 Urea nitrogen [Mass/Vol] 14 mg/dL 4-19 [facility] Sodium levelOrdered By: [facility] Jossy Ethan on 05-22-2025 Sodium [Moles/Vol] 137 mmol/L 133-145 [facility] White blood cell (WBC) count Ordered By: [facility] Jossy Ethan on 05-22-2025 WBC (Bld) [#/Vol] 11.3 10*3/uL High 4.4-11.0 [facility] CBC W/Diff, Automatedon 02- Absolute Lymph 3.65 X10 3/uL Normal 0.83-4.51 [facility] Comment on above: Performed By: #### L 500.4050, L501.9910, L100.0100, L500.4100, L502.0500, L501.9520 #### [facility] [address] [place], [address] Absolute Neut 6.2 X10 3/uL Normal 2.0-7.7 [facility] Comment on above: Performed By: #### L 500.4050, L501.9910, L100.0100, L500.4100, L502.0500, L501.9520 #### [facility] [address] [place], [address] Basophils/100 WBC (Bld) 0.6 % Normal 0-[address] [facility] Comment on above: Performed By: #### L 500.4050, L501.9910, L100.0100, L500.4100, L502.0500, L501.9520 #### [facility] [address] [place], [address] Eosinophils/100 WBC (Bld) 1.2 % Normal 0-5 [facility] Comment on above: Performed By: #### L 500.4050, L501.9910, L100.0100, L500.4100, L502.0500, L501.9520 #### [facility] [address] [place], [address] Erythrocyte distribution width (RBC) [Ratio] 16.7 % High 11.6-14.6 [facility] Comment on above: Performed By: #### L 500.4050, L501.9910, L100.0100, L500.4100, L502.0500, L501.9520 #### [facility] [address] [place], [address] Hematocrit (Bld) [Volume fraction] 35.7 % Low 40-54 [facility] Comment on above: Performed By: #### L 500.4050, L501.9910, L100.0100, L500.4100, L502.0500, L501.9520 #### [facility] [address], [address] Hemoglobin (Bld) [Mass/Vol] 10.7 g/dL Low 13.0-16.5 [facility] Comment on above: Performed By: #### L 500.4050, L501.9910, L100.0100, L500.4100, L502.0500, L501.9520 #### [facility] [address] [place], [address] IG% 1.100 High 0.0-0.9 [facility] Comment on above: Result Comment: IG% - Immature Granulocytes (promyelocytes, myelocytes and metamyelocytes) > 1% indicates that a LEFT SHIFT is Present. Performed By: #### L 500.4050, L501.9910, L100.0100, L500.4100, L502.0500, L501.9520 #### [facility] [address], [address] Lymphocytes/100 WBC (Bld) 32.2 % Normal 19-41 [facility] Comment on above: Performed By: #### L 500.4050, L501.9910, L100.0100, L500.4100, L502.0500, L501.9520 #### [facility] [address] [place], [address] MCH (RBC) [Entitic mass] 21.5 pg Low 27.0-32.0 [facility] Comment on above: Performed By: #### L 500.4050, L501.9910, L100.0100, L500.4100, L502.0500, L501.9520 #### [facility] [address] [place], [address] MCHC (RBC) [Mass/Vol] 30.0 g/dL Low 32-36 [facility] Comment on above: Performed By: #### L 500.4050, L501.9910, L100.0100, L500.4100, L502.0500, L501.9520 #### [facility] [address] [place], [address] MCV (RBC) [Entitic vol] 71.7 fL Low 80-[address] [facility] Comment on above: Performed By: #### L 500.4050, L501.9910, L100.0100, L500.4100, L502.0500, L501.9520 #### [facility] [address] [place], [address] Monocytes/100 WBC (Bld) 10.4 % High 0-[address] [facility] Comment on above: Performed By: #### L 500.4050, L501.9910, L100.0100, L500.4100, L502.0500, L501.9520 #### [facility] [address] [place], [address] Neutrophils/100 WBC (Bld) 54.5 % Normal 47-70 [facility] Comment on above: Performed By: #### L 500.4050, L501.9910, L100.0100, L500.4100, L502.0500, L501.9520 #### [facility] [address] [place], [address] Nucleated RBC (Bld) [#/Vol] 0 10*3/uL Normal 0-5 [facility] Comment on above: Performed By: #### L 500.4050, L501.9910, L100.0100, L500.4100, L502.0500, L501.9520 #### [facility] [address] [place], [address] Platelet mean volume (Bld) [Entitic vol] 9.3 fL Normal 6.2-12.0 [facility] Comment on above: Performed By: #### L 500.4050, L501.9910, L100.0100, L500.4100, L502.0500, L501.9520 #### [facility] [address] [place], [address] Platelets (Bld) [#/Vol] 383 10*3/uL Normal 150-450 [facility] Comment on above: Performed By: #### L 500.4050, L501.9910, L100.0100, L500.4100, L502.0500, L501.9520 #### [facility] [address] [place], [address] RBC (Bld) [#/Vol] 4.98 10*6/uL Normal 4.6-6.2 [facility] Comment on above: Performed By: #### L 500.4050, L501.9910, L100.0100, L500.4100, L502.0500, L501.9520 #### [facility] [address] [place], [address] RDW SD 41.7 fl Normal 35.1-43.9 [facility] Comment on above: Performed By: #### L 500.4050, L501.9910, L100.0100, L500.4100, L502.0500, [id number] #### [facility] [address] [place], [address] WBC (Bld) [#/Vol] 11.3 10*3/uL High 4.4-11.0 [facility] Comment on above: Performed By: #### L 500.4050, L501.9910, L100.0100, L500.4100, L502.0500, L501.9520 #### [facility] [address] [place], [address] Comprehensive Metabolic Prof ilon 11-23-2024 Albumin [Mass/Vol] 4.2 g/dL Normal 3.2-5.0 [facility] Comment on above: Performed By: #### L 500.4050, L501.9910, L100.0100, L500.4100, L502.0500, L501.9520 #### [facility] [address] [place], [address] Albumin/Globulin [Mass ratio] 1.2 {ratio} Normal 0.9-2.4 [facility] Comment on above: Performed By: #### L 500.4050, L501.9910, L100.0100, L500.4100, L502.0500, L501.9520 #### [facility] [address] [place], [address] ALK P 139 U/L High 45-117 [facility] Comment on above: Performed By: #### L 500.4050, L501.9910, L100.0100, L500.4100, L502.0500, L501.9520 #### [facility] [address] [place], [address] ALT [Catalytic activity/Vol] 21 U/L Normal 16-61 [facility] Comment on above: Performed By: #### L 500.4050, L501.9910, L100.0100, L500.4100, L502.0500, L501.9520 #### [facility] [address] [place], [address] AST [Catalytic activity/Vol] 12 U/L Low 15-37 [facility] Comment on above: Performed By: #### L 500.4050, L501.9910, L100.0100, L500.4100, L502.0500, L501.9520 #### [facility] [address] [place], [address] Bilirubin [Mass/Vol] 0.30 mg/dL Normal 0.20-1.00 [facility] Comment on above: Result Comment: For patients on eltrombopag therapy, use of Dimension Howard TBIL is not recommended. Performed By: #### L 500.4050, L501.9910, L100.0100, L500.4100, L502.0500, L501.9520 #### [facility] [address] [place], [address] BUN/CRE 9.0 RATIO Low 10-20 [facility] Comment on above: Performed By: #### L 500.4050, L501.9910, L100.0100, L500.4100, L502.0500, L501.9520 #### [facility] [address] [place], [address] CA,Total 9.0 mg/dL Normal 8.5-10.1 [facility] Comment on above: Performed By: #### L 500.4050, L501.9910, L100.0100, L500.4100, L502.0500, L501.9520 #### [facility] [address] [place], [address] Chloride [Moles/Vol] 106 mmol/L Normal 98-107 [facility] Comment on above: Performed By: #### L 500.4050, L501.9910, L100.0100, L500.4100, L502.0500, L501.9520 #### [facility] [address] [place], [address] CO2 [Moles/Vol] 24.0 mmol/L Normal 21.0-32.0 [facility] Comment on above: Performed By: #### L 500.4050, L501.9910, L100.0100, L500.4100, L502.0500, L501.9520 #### [facility] [address] [place], [address] Creatinine [Mass/Vol] 1.45 mg/dL High 0.70-1.30 [facility] Comment on above: Result Comment: The validity of the calculated GFR GFRAA in patients over 70 years has not been determined. Clinical correlation is essential. Performed By: #### L 500.4050, L501.9910, L100.0100, L500.4100, L502.0500, L501.9520 #### [facility] [address] [place], [address] EST GFR - AA 66 mL/min Normal >60 [facility] Comment on above: Result Comment: Afri can Cymro GFR Calc Performed By: #### L 500.4050, L501.9910, L100.0100, L500.4100, L502.0500, L501.9520 #### [facility] [address] [place], [address] GAP 7 Normal 5-15 [facility] Comment on above: Performed By: #### L 500.4050, L501.9910, L100.0100, L500.4100, L502.0500, L501.9520 #### [facility] [address] [place], [address] GFR/1.73 sq M.predicted among non-blacks MDRD (S/P/Bld) [Vol rate/Area] 54 mL/min/{1.73_m2} Low >60 [facility] Comment on above: Result Comment: Non- GFR Calc Performed By: #### L 500.4050, L501.9910, L100.0100, L500.4100, L502.0500, L501.9520 #### [facility] [address] [place], [address] Globulin (S) [Mass/Vol] 3.5 g/dL Normal 2.2-4.2 [facility] Comment on above: Performed By: #### L 500.4050, L501.9910, L100.0100, L500.4100, L502.0500, L501.9520 #### [facility] [address] [place], [address] Glucose [Mass/Vol] 166 mg/dL High 74-106 [facility] Comment on above: Result Comment: Fast ing Glucose result greater than or equal to 126 mg/dL suggests DIABETES MELLITUS per A.D.A. criteria. Performed By: #### L 500.4050, L501.9910, L100.0100, L500.4100, L502.0500, L501.9520 #### [facility] [address] [place], [address] Potassium [Moles/Vol] 4.4 mmol/L Normal 3.5-5.1 [facility] Comment on above: Performed By: #### L 500.4050, L501.9910, L100.0100, L500.4100, L502.0500, L501.9520 #### [facility] [address] [place], [address] Sodium [Moles/Vol] 138 mmol/L Normal 136-145 [facility] Comment on above: Performed By: #### L 500.4050, L501.9910, L100.0100, L500.4100, L502.0500, L501.9520 #### [facility] [address] [place], [address] T PROT 7.7 g/dL Normal 6.4-8.2 [facility] Comment on above: Performed By: #### L 500.4050, L501.9910, L100.0100, L500.4100, L502.0500, L501.9520 #### [facility] [address] [place], [address] Urea nitrogen [Mass/Vol] 13 mg/dL Normal 7-18 [facility] Comment on above: Performed By: #### L 500.4050, L501.9910, L100.0100, L500.4100, L502.0500, L501.9520 #### [facility] [address] [place], [address] Lipid Profileon 11-23-2024 Cholesterol [Mass/Vol] 117 mg/dL Normal 200 [facility] Comment on above: Result Comment: <200 mg/dL Desirable 200-240 mg/dL Borderline >240 mg/dL High Risk Performed By: #### L 500.4050, L501.9910, L100.0100, L500.4100, L502.0500, L501.9520 #### [facility] [address] [place], [address] Cholesterol in HDL [Mass/Vol] 45 mg/dL Normal [facility] Comment on above: Result Comment: The drugs N-Acetylcysteine and Metamizole may falsely depress this assay. Reference Range HDL <40 mg/dL Low HDL Cholesterol HDL >or= 60 mg/dL High HDL Cholesterol Performed By: #### L 500.4050, L501.9910, L100.0100, L500.4100, L502.0500, L501.9520 #### [facility] [address] [place], [address] Cholesterol in LDL [Mass/Vol] 34 mg/dL Normal 0-130 [facility] Comment on above: Performed By: #### L 500.4050, L501.9910, L100.0100, L500.4100, L502.0500, L501.9520 #### [facility] [address] [place], [address] Cholesterol in VLDL [Mass/Vol] 38 mg/dL Normal 5-40 [facility] Comment on above: Performed By: #### L 500.4050, L501.9910, L100.0100, L500.4100, L502.0500, L501.9520 #### [facility] [address] [place], [address] Triglyceride [Mass/Vol] 189 mg/dL Normal [facility] Comment on above: Result Comment: The drugs N-Acetylcysteine and Metamizole may falsely depress this assay. Serum Triglycerides Reference Interval Normal <150 mg/dL Borderline high 150 - 199 mg/dL High 200 - 499 mg/dL Very High > or = 500 mg/dL Performed By: #### L 500.4050, L501.9910, L100.0100, L500.4100, L502.0500, L501.9520 #### [facility] [address] [place], [address] Microalbumin,Random Urineon 11-23-2024 MICROALBUMIN,UR 661.0 mg/L Normal NO RANGE EST. [facility] Comment on above: Performed By: #### L 500.4050, L501.9910, L100.0100, L500.4100, L502.0500, L501.9520 #### [facility] [address] [place], [place], [id number] PSA,Total - Annual Screenon 11-23-2024 PSA,TOT SCREEN 0.74 ng/mL Normal 0.00-4.00 [facility] Comment on above: Result Comment: This test was performed using the TPSA assay method for the [employer] chemistry system. Values obtained with different assay methods cannot be used interchangably. When changing PSA assays in the course of monitoring a patient, additional sequential testing should be carried out to confirm baseline values. Performed By: #### L 500.4050, L501.9910, L100.0100, L500.4100, L502.0500, L501.9520 #### [facility] [address] [place], [place], [id number] Thyroid Stim Hormone (TSH)on 11-23-2024 TSH 4.770 uIU/mL High 0.358-3.740 [facility] Comment on above: Performed By: #### L 500.4050, L501.9910, L100.0100, L500.4100, L502.0500, L501.9520 #### [facility] [address] [place], [address] Basophil percentageOrdered B y: Jossy Ethan on 04-26-2023 Bilirubin [Mass/Vol] 0.40 mg/dL 0.20-1.00 [facility] Comment on above: For patients on eltr ombopag therapy, use of Dimension Howard TBIL is not recommended. Chloride [Moles/Vol] 103 mmol/L 98-107 [facility] Cholesterol [Mass/Vol] 112 mg/dL <200 [facility] Comment on above: <200 mg/dL Desirable 200-240 mg/dL Borderline >240 mg/dL High Risk Glucose [Mass/Vol] 211 mg/dL 74-106 [facility] Comment on above: Glucose result great er than or equal to 200 mg/dLsuggests DIABETES MELLITUS per A.D.A. criteria. Potassium [Moles/Vol] 4.7 mmol/L 3.5-5.1 [facility] Protein [Mass/Vol] 7.9 g/dL 6.4-8.2 [facility] Sodium [Moles/Vol] 133 mmol/L 136-145 [facility] Triglyceride [Mass/Vol] 145 mg/dL <[address] [facility] Comment on above: The drugs N-Acetylcy steine and Metamizole may falsely depress this assay.Serum Triglycerides Reference Interval Normal <150 mg/dL Borderline high 150 - 199 mg/dL High 200 - 499 mg/dL Very High > or = 500 mg/dL WBC (Bld) [#/Vol] 9.2 10*3/uL 4.4-11.0 [facility] Blood erythrocytes count (nu mber/volume)Ordered By: Jossy Long on 04-26-2023 RBC (Bld) [#/Vol] 5.42 10*6/uL 4.6-6.2 [facility] Blood hemoglobin measurement (mass/volume)Ordered By: Jossy Long on 04-26-2023 Hemoglobin (Bld) [Mass/Vol] 11.5 g/dL 13.0-16.5 [facility] Blood platelet mean volumeOr dered By: Jossy Long on 04-26-2023 Platelet mean volume (Bld) [Entitic vol] 9.6 fL 6.2-12.0 [facility] Determination of erythrocyte mean corpuscular volume (MCV)Ordered By: Jossy Long on 04-26-2023 MCV (RBC) [Entitic vol] 71.8 fL 80-[address] [facility] Hematocrit Auto (Bld) [Volum e fraction]Ordered By: Jossy Long on 04-26-2023 Hematocrit (Bld) [Volume fraction] 38.9 % 40-54 [facility] - Chemistry and C hemistry - challengeOrdered By: Jossy Long on 04-26-2023 ALP [Catalytic activity/Vol] 237 U/L 45-117 [facility] ALT [Catalytic activity/Vol] 26 U/L 16-61 [facility] CO2 [Moles/Vol] 24.0 mmol/L 21.0-32.0 [facility] Globulin (S) [Mass/Vol] 3.6 g/dL 2.2-4.[address] [facility] Urea nitrogen/Creatinine [Mass ratio] 13.0 mg/mg 10-20 [facility] - Hematology and Cell countsOrdered By: Jossy Long on 04-26-2023 Erythrocyte distribution width (RBC) [Entitic vol] 40.0 fL 35.1-43.9 [facility] Erythrocyte distribution width (RBC) [Ratio] 15.7 % 11.6-14.6 [facility] MCH (RBC) [Entitic mass] 21.2 pg 27.0-32.0 [facility] MCHC Auto (RBC) [Mass/Vol]Or dered By: Jossy Long on 04-26-2023 MCHC (RBC) [Mass/Vol] 29.6 g/dL 32-36 [facility] No Panel InformationOrdered By: Jossy Long on 04-26-2023 Estimated GFR (MDRD) Amer 123 mL/min >60 [facility] Comment on above: GFR Calc Estimated GFR (MDRD) Non-Af Amer 102 mL/min >60 [facility] Comment on above: Non- GFR Calc Thyroid Stimulating Hormone (TSH) 1.84 uIU/mL 0.358-3.74 [facility] Platelets bldOrdered By: Vicki Long on 04-26-2023 Platelets (Bld) [#/Vol] 320 10*3/uL 150-450 [facility] Serum or plasma albumin nixon urement (mass/volume)Ordered By: Jossy Long on 04-26-2023 Albumin [Mass/Vol] 4.3 g/dL 3.2-5.0 [facility] Serum or plasma albumin/glob ulin mass ratioOrdered By: Jossy Long on 04-26-2023 Albumin/Globulin [Mass ratio] 1.2 {ratio} 0.9-2.4 [facility] Serum or plasma calcium nixon urement (mass/volume)Ordered By: Jossy Long on 04-26-2023 Calcium [Mass/Vol] 9.4 mg/dL 8.5-10.1 [facility] Serum or plasma cholesterol in HDL measurement (mass/volume)Ordered By: Jossy Long on 04-26-2023 Cholesterol in HDL [Mass/Vol] 39 mg/dL >40 [facility] Comment on above: The drugs N-Acetylcy steine and Metamizole may falsely depress this assay. Reference Range HDL <40 mg/dL Low HDL Cholesterol HDL >or= 60 mg/dL High HDL Cholesterol Serum or plasma cholesterol in VLDL measurement (mass/volume)Ordered By: Jossy Long on 04-26-2023 Cholesterol in VLDL [Mass/Vol] 29 mg/dL 5-40 [facility] Serum or plasma creatinine m easurement (mass/volume)Ordered By: Jossy Long on 04-26-2023 Creatinine [Mass/Vol] 0.85 mg/dL 0.70-1.30 [facility] Comment on above: The validity of the calculated GFR & GFRAA in patients over 70 years has not been determined. Clinical correlation is essential. Serum or plasma low density lipoprotein (LDL) cholesterol measurement (mass/volume)Ordered By: Jossy Long on 04-26-2023 Cholesterol in LDL [Mass/Vol] 44 mg/dL 0-130 [facility] Serum or plasma urea nitroge n measurement (mass/volume)Ordered By: Jossy Long on 04-26-2023 Urea nitrogen [Mass/Vol] 11 mg/dL 7-18 [facility] Thin prep Papanicolaou smear with manual screeningOrdered By: Jossy Long on 04-26-2023 Thin prep Papanicolaou smear with manual screening 10 U/L 15-37 [facility] Thin prep Papanicolaou smear with manual screening 6 5-15 [facility] Thin prep Papanicolaou smear with manual screening 731.0 mg/L NO RANGE EST. [facility] 3612-20-2022 36 Faxed [facility] update on situation. [facility] 36 Called patient and left a message to schedule an appointment . See comments below for details about scheduling. appointment with Dr. Westfall ONLY - per Dr. Westfall appointment must be 30 minutes, next available, no double booking. [facility] 36on 02-17-2023 36 Called patient and left message to make an appointment with Dr. Westfall ONLY - per Dr. Westfall appointment must be 30 minutes, next available, no double booking. Normal [facility] 36 Sure next available no double book HENRI Normal [facility] 36on 12-06-[address] Hassan has declined this 2nd opinion [facility] case. Is this something you are interesting in seeing, all information is attached in the media section. Please let me know your decision. Normal [facility] 36on 11-29-2022 36 2nd opinon [facility] from [facility]. Entire record is in the media section. Please let me know if you will see this, thank you. Dr. Josemanuel Hernandez Date of Surgery 11/06/22 - OP report is page 19 of 32 [facility] Absolute lymphocyte countOrd ered By: Dr. Rudd on 10-24-2022 Lymphocytes Auto (Unsp spec) [#/Vol] 2.27 10*3/uL 0.83-4.51 [facility] Basophil percentageOrdered B y: Dr. Rudd on 10-24-2022 Basophils/100 WBC (Bld) 0.5 % 0-[address] [facility] Eosinophils/100 WBC (Bld) 1.5 % 0-5 [facility] Neutrophils (Bld) [#/Vol] 7.7 10*3/uL 2.0-7.7 [facility] Neutrophils/100 WBC (Bld) 69.2 % 47-70 [facility] WBC (Bld) [#/Vol] 11.2 10*3/uL 4.4-11.0 [facility] Blood erythrocytes count (nu mber/volume)Ordered By: Dr. Rudd on 10-24-2022 RBC (Bld) [#/Vol] 6.14 10*6/uL 4.6-6.2 [facility] Blood hemoglobin measurement (mass/volume)Ordered By: Dr. Rudd on 10-24-2022 Hemoglobin (Bld) [Mass/Vol] 12.7 g/dL 13.0-16.5 [facility] Blood lymphocytes/100 leukoc ytesOrdered By: Dr. Rudd on 10-24-2022 Lymphocytes/100 WBC (Bld) 20.3 % 19-41 [facility] Blood monocytes/100 leukocyt esOrdered By: Dr. Rudd on 10-24-2022 Monocytes/100 WBC (Bld) 8.0 % 0-[address] [facility] Blood platelet mean volumeOr dered By: Dr. Rudd on 10-24-2022 Platelet mean volume (Bld) [Entitic vol] 8.8 fL 6.2-12.0 [facility] Determination of erythrocyte mean corpuscular volume (MCV)Ordered By: Dr. Rudd on 10-24-2022 MCV (RBC) [Entitic vol] 71.8 fL 80-[address] [facility] Hematocrit Auto (Bld) [Volum e fraction]Ordered By: Dr. Rudd on 10-24-2022 Hematocrit (Bld) [Volume fraction] 44.1 % 40-54 [facility] - Hematology and Cell countsOrdered By: Dr. Rudd on 10-24-2022 Erythrocyte distribution width (RBC) [Entitic vol] 38.9 fL 35.1-43.9 [facility] Erythrocyte distribution width (RBC) [Ratio] 15.7 % 11.6-14.6 [facility] Immature granulocytes/100 WBC (Bld) 0.500 % 0.0-0.9 [facility] Comment on above: IG% - Immature Granu locytes (promyelocytes, myelocytes and metamyelocytes) > 1% indicates that a LEFT SHIFT is Present. MCH (RBC) [Entitic mass] 20.7 pg 27.0-32.0 [facility] Nucleated RBC/100 WBC (Bld) [Ratio] 0 % 0-5 [facility] MCHC Auto (RBC) [Mass/Vol]Or dered By: Dr. Rudd on 10-24-2022 MCHC (RBC) [Mass/Vol] 28.8 g/dL 32-36 [facility] Platelets bldOrdered By: Dr. Rudd on 10-24-2022 Platelets (Bld) [#/Vol] 351 10*3/uL 150-450 [facility] Serum or plasma ferritin naty surement (mass/volume)Ordered By: Dr. Rudd on 10-24-2022 Ferritin [Mass/Vol] 85 ng/mL 26-388 [facility] Whole blood hemoglobin A1c/t otal hemoglobin ratio (mass fraction)Ordered By: Dr. Rudd on 10-24-2022 HbA1c (Bld) [Mass fraction] 9.0 % 3.8-5.6 [facility] Comment on above: Normal < 5.7 % Predi abetic 5.7 - 6.4 % Diabetic >or= 6.5 % Please note range changes. Absolute lymphocyte counton 05-18-2022 Lymphocytes Auto (Unsp spec) [#/Vol] 2.47 10*3/uL 0.83-4.51 [facility] Work Phone: Basophil percentageon 2021 Basophils/100 WBC (Bld) 0.3 % 0-[address] [facility] Work Phone: Bilirubin [Mass/Vol] 0.40 mg/dL 0.20-1.00 [facility] Work Phone: Comment on above: For patients on eltr ombopag therapy, use of Dimension Howard TBIL is not recommended. Chloride [Moles/Vol] 105 mmol/L 98-107 [facility] Work Phone: Cholesterol [Mass/Vol] 101 mg/dL <200 [facility] Work Phone: Comment on above: <200 mg/dL Desirable 200-240 mg/dL Borderline >240 mg/dL High Risk Eosinophils/100 WBC (Bld) 1.1 % 0-5 [facility] Work Phone: Glucose [Mass/Vol] 142 mg/dL 74-106 [facility] Work Phone: Comment on above: Fasting Glucose resu lt greater than or equal to 126 mg/dL suggests DIABETES MELLITUS per A.D.A. criteria. Neutrophils (Bld) [#/Vol] 5.5 10*3/uL 2.0-7.7 [facility] Work Phone: Neutrophils/100 WBC (Bld) 62.6 % 47-70 [facility] Work Phone: Potassium [Moles/Vol] 3.6 mmol/L 3.5-5.1 [facility] Work Phone: Protein [Mass/Vol] 7.7 g/dL 6.4-8.2 [facility] Work Phone: Sodium [Moles/Vol] 137 mmol/L 136-145 [facility] Work Phone: Triglyceride [Mass/Vol] 100 mg/dL <[address] [facility] Work Phone: Comment on above: The drugs N-Acetylcy steine and Metamizole may falsely depress this assay.Serum Triglycerides Reference Interval Normal <150 mg/dL Borderline high 150 - 199 mg/dL High 200 - 499 mg/dL Very High > or = 500 mg/dL WBC (Bld) [#/Vol] 8.8 10*3/uL 4.4-11.0 [facility] Work Phone: Blood erythrocytes count (nu mber/volume)on 05-18-2022 RBC (Bld) [#/Vol] 5.24 10*6/uL 4.6-6.2 [facility] Work Phone: Blood hemoglobin measurement (mass/volume)on 05-18-2022 Hemoglobin (Bld) [Mass/Vol] 10.9 g/dL 13.0-16.5 [facility] Work Phone: Blood lymphocytes/100 leukoc yteson 05-18-2022 Lymphocytes/100 WBC (Bld) 28.2 % 19-41 [facility] Work Phone: Blood monocytes/100 leukocyt eson 05-18-2022 Monocytes/100 WBC (Bld) 7.5 % 0-[address] [facility] Work Phone: Blood platelet mean volumeon 05-18-2022 Platelet mean volume (Bld) [Entitic vol] 9.0 fL 6.2-12.0 [facility] Work Phone: Determination of erythrocyte mean corpuscular volume (MCV)on 05-18-2022 MCV (RBC) [Entitic vol] 70.2 fL 80-[address] [facility] Work Phone: Hematocrit Auto (Bld) [Volum e fraction]on 05-18-2022 Hematocrit (Bld) [Volume fraction] 36.8 % 40-54 [facility] Work Phone: Iron measurement (mass/mass) on 05-18-2022 Iron (Unsp spec) [Mass/Mass] 88 ug/dL 65-175 [facility] Work Phone: Laboratory - Chemistry and C hemistry - challengeon 05-18-2022 ALP [Catalytic activity/Vol] 163 U/L 45-117 [facility] Work Phone: ALT [Catalytic activity/Vol] 19 U/L 16-61 [facility] Work Phone: [phone] CO2 [Moles/Vol] 26.0 mmol/L 21.0-32.0 [facility] Work Phone: Globulin (S) [Mass/Vol] 3.4 g/dL 2.2-4.[address] [facility] Work Phone: Urea nitrogen/Creatinine [Mass ratio] 17.0 mg/mg 10-20 [facility] Work Phone: Laboratory - Hematology and Cell countson 05-18-2022 Erythrocyte distribution width (RBC) [Entitic vol] 38.4 fL 35.1-43.9 [facility] Work Phone: Erythrocyte distribution width (RBC) [Ratio] 15.5 % 11.6-14.6 [facility] Work Phone: Immature granulocytes/100 WBC (Bld) 0.300 % 0.0-0.9 [facility] Work Phone: Comment on above: IG% - Immature Granu locytes (promyelocytes, myelocytes and metamyelocytes) > 1% indicates that a LEFT SHIFT is Present. MCH (RBC) [Entitic mass] 20.8 pg 27.0-32.0 [facility] Work Phone: Nucleated RBC/100 WBC (Bld) [Ratio] 0 % 0-5 [facility] Work Phone: MCHC Auto (RBC) [Mass/Vol]on 05-18-2022 MCHC (RBC) [Mass/Vol] 29.6 g/dL 32-36 [facility] Work Phone: No Panel Informationon 05-18 Estimated GFR (MDRD) Amer 95 mL/min >60 [facility] Work Phone: Comment on above: GFR Calc Estimated GFR (MDRD) Non-Af Amer 79 mL/min >60 [facility] Work Phone: Comment on above: Non- GFR Calc Thyroid Stimulating Hormone (TSH) 1.95 uIU/mL 0.358-3.74 [facility] Work Phone: Total Iron Binding Capacity 384 ug/dL 250-450 [facility] Work Phone: Platelets bldon 05-18-2022 Platelets (Bld) [#/Vol] 317 10*3/uL 150-450 [facility] Work Phone: Serum or plasma albumin nixon urement (mass/volume)on 05-18-2022 Albumin [Mass/Vol] 4.3 g/dL 3.2-5.0 [facility] Work Phone: Serum or plasma albumin/glob ulin mass ratioon 05-18-2022 Albumin/Globulin [Mass ratio] 1.3 {ratio} 0.9-2.4 [facility] Work Phone: Serum or plasma calcium nixon urement (mass/volume)on 05-18-2022 Calcium [Mass/Vol] 9.0 mg/dL 8.5-10.1 [facility] Work Phone: Serum or plasma cholesterol in HDL measurement (mass/volume)on 05-18-2022 Cholesterol in HDL [Mass/Vol] 37 mg/dL >40 [facility] Work Phone: Comment on above: The drugs N-Acetylcy steine and Metamizole may falsely depress this assay. Reference Range HDL <40 mg/dL Low HDL Cholesterol HDL >or= 60 mg/dL High HDL Cholesterol Serum or plasma cholesterol in VLDL measurement (mass/volume)on 05-18-2022 Cholesterol in VLDL [Mass/Vol] 20 mg/dL 5-40 [facility] Work Phone: Serum or plasma creatinine m easurement (mass/volume)on 05-18-2022 Creatinine [Mass/Vol] 1.06 mg/dL 0.70-1.30 [facility] Work Phone: Comment on above: The validity of the calculated GFR & GFRAA in patients over 70 years has not been determined. Clinical correlation is essential. Serum or plasma ferritin naty surement (mass/volume)on 05-18-2022 Ferritin [Mass/Vol] 30 ng/mL 26-388 [facility] Work Phone: Serum or plasma low density lipoprotein (LDL) cholesterol measurement (mass/volume)on 05-18-2022 Cholesterol in LDL [Mass/Vol] 44 mg/dL 0-130 [facility] Work Phone: Serum or plasma urea nitroge n measurement (mass/volume)on 05-18-2022 Urea nitrogen [Mass/Vol] 18 mg/dL 7-18 [facility] Work Phone: Thin prep Papanicolaou smear with manual screeningon 05-18-2022 Thin prep Papanicolaou smear with manual screening 15 U/L 15-37 [facility] Work Phone: Thin prep Papanicolaou smear with manual screening 6 5-15 [facility] Work Phone: CNOVon 12-26-2021 CNOV Office Visit (PODIWS) NGOC RODRIGUEZ ([id number]) 1970 M Date Time Provider Department 12/26/21 [...] no signific (more content not included)... Normal [facility] Encounters Encounter Date Encounter Type Care Provider Facility Start: 05-28-2025 End: 05-28-2025 ambulatory Jossy Long [facility] Work Phone: -Laboratory Start: 05-28-2025 End: 05-28-2025 Patient encounter procedure Anahy Juan [facility] -Laboratory Work Phone: Start: 05-28-2025 End: 05-28-2025 ambulatory Jossy Long Facility:[facility] Start: 05-22-2025 End: 05-22-2025 ambulatory Jossy Long [facility] Work Phone: -Laboratory Start: 05-22-2025 End: 05-22-2025 Patient encounter procedure [facility] Jossy Ethan [facility] -Laboratory Work Phone: Start: 05-22-2025 End: 05-22-2025 ambulatory [facility] Facility:[facility] Start: 11-23-2024 End: 11-23-2024 ambulatory [facility] Facility:[facility] Start: 04-26-2023 End: 04-26-2023 ambulatory [facility] Work Phone: Start: 04-26-2023 End: 04-26-2023 Patient encounter procedure [facility]-Laboratory Work Phone: Start: 10-24-2022 End: 10-24-2022 ambulatory [facility] Work Phone: Start: 10-24-2022 End: 10-24-2022 Patient encounter procedure [facility]-Laboratory Start: 05-21-2022 End: 05-21-2022 Patient encounter procedure [facility]-Laboratory, Specimen Start: 05-18-2022 End: 05-18-2022 Patient encounter procedure [facility]-Laboratory Start: 12-25-2021 End: 12-25-2021 Discharged Recurring [facility]-Occupational Therapy Procedures Date Procedure Procedure Detail Performing Clinician Start: 05-28-2025 Total iron binding capacity measurement Jossy CANTU Work Phone: Measurement of occul t blood in stool specimen using immunoassay Immunizations Immunization Date Immunization Notes Care Provider Fa cility 11-06-2021 tetanus toxoid, redu senthil diphtheria toxoid, and acellular pertussis vaccine, adsorbed [facility] Payers Date Payer Category Payer Self-pay [id number] 2024 Unknown [id number] Unknown SELF PAY INSURANCE [id number] Unknown SELF PAY INSURANCE [id number] Unknown [id number] Unknown [id number] Unknown [id number] Unknown [id number] Social History Date Type Detail Facility Start: 11-06-2021 End: 11-06-2021 Tobacco smoking status NHIS Unknown if ever smoked [facility] Start: 1970 Sex Assigned At Male [facility] Start: 11-06-2021 Tobacco smoking stat us UTIS Smokes tobacco daily (finding) [facility] Progress note 12-26-2021 Note Date & Type Note Facility 12-26-2021 Note HNO ID: [id number] Author: Sangeeta Yee MA Service: ? Author Type: Professional Architect Type: Progress Notes Filed: 12/26/2021 2:45 PM Note Text: Per Dr. Shipley, Ngoc was provided with Powerstep Original full length, size 10, and instructed/educated in its application, wear, and care. All questions were answered, and patient was able to demonstrate competence with the necessary skills to utilize the above equipment. Sangeeta Yee MA [facility] Progress note 12-26-2021 Note Date & Type Note Facility 12-26-2021 Note HNO ID: [id number] Author: Jerry Shipley Service: ? Author Type: [...] Radiographs: per rep (more content not included)... [facility] Progress note 12-26-2021 Note Date & Type Note Facility 12-26-2021 Note HNO ID: [id number] Author: Sangeeta Yee MA Service: ? Author Type: Professional Architect Type: Progress Notes Filed: 12/26/2021 2:45 PM Note Text: AMB ROOMING INTAKE FLOWSHEET DATA Risk Screening Do you have concerns about personal safety or safety in the home?: No Pain Pain Level: 3 Pain Location: Foot-Right Description: Stabbing/Not Incision Duration Amount of Time: 6 Duration Units: Months Frequency: Continuous Intervention/Comfort measure: Medication, Relaxation Patient presents with: Right Foot - New, bone spurs [facility] Evaluation note Note Date & Type Note Facility Evaluation note No assessment information availa ble [facility] Work Phone: Reason for referral (narrative) Note Date & Type Note Facility Reason for referral (narrative) No reason for referral information available [facility] Work Phone: Summary Purpose Family History No Family History Records Found Relationship Condition Age at Onset Recorded Date/T [place] mother Malignant neoplasm of pancreas Unknown Advance Directives No Advanced Directives Records Found Advance Directive Response Recorded Date/ Time Living Will No November 06 2:11pm Power of Vision Care Associate No November 06, 2021 2:11pm Advance Directive Response Recorded Date/ Time Living Will No November 06 1:11pm Power of Vision Care Associate No November 06, 2021 1:11pm Chief Complaint and Reason for Visit Chief Complaint RT THUMB SPLINT/ RX HERE Chief Complaint STOOL SAMPLE Chief Complaint Admit Date E ORDER May 22, 2025 11: 19am Additional Source Comments (unrecognized sect ion and content) No Status Records FoundNo Status Records FoundNo Status Records Found INFORMATION SOURCE (unrecogn ized section and content) DATE CREATED AUTHOR 01/10/2022 [facility] DATE CREATED AUTHOR AUTHOR'S ORGANIZ ATION 12/22/2022 [facility] DATE CREATED AUTHOR AUTHOR'S ORGANIZ ATION 06/05/2025 [facility] Goals (unrecognized section and content) Goals [...] Team Status: Active Member Role Status Dates [facility] Family Provider Active [facility] Primary Care Provider A ctive Team Status: Inactive Member Role Status Dates [facility] Primary Care Provider A ctive Dr. Ashu Rudd MD Attending Provider Active Team Status: Inactive Member Role Status Dates [facility] Primary Care Provider A ctive Jossy Long [facility], [facility] Attending Provider, Rosario byrd Provider Active Team Status: Active Member Role/Relationship Status Dates Jossy ZHAO [facility] Primary Care Provider Activ e Team Status: Inactive Member Role/Relationship Status Dates Jossy ZHAO, [facility] Primary Care Provider Activ e Start: May 22, 2025 End: May 22, 2025 Jossy ZHAO, [facility] Attending Provider Active Start: May 22, 2025 [...] BE BASED ON THE PRIMARY CLINICAL RECORDS. [facility] [employer] provides no warranty or guarantee of the accuracy or completeness of information in this document.
== END 2025-09-10 14:20 | disposition home or self-care (01) ==
LOC: ED 10:27 → ICU 18:32
PROVIDERS: Emergency Provider Emergency Medicine; PCP Nurse Practitioner Family
DX: I48.92 Unspecified atrial flutter (principal); I48.91 Unspecified atrial fibrillation; I42.9 Cardiomyopathy, unspecified; E11.69 Type 2 diabetes mellitus with other specified complication; Z79.4 Long term (current) use of insulin; I10 Essential (primary) hypertension; E03.9 Hypothyroidism, unspecified; F10.10 Alcohol abuse, uncomplicated; E78.00 Pure hypercholesterolemia, unspecified; F17.210 Nicotine dependence, cigarettes, uncomplicated; F17.220 Nicotine dependence, chewing tobacco, uncomplicated; K21.9 Gastro-esophageal reflux disease without esophagitis; Y90.9 Presence of alcohol in blood, level not specified; Z79.01 Long term (current) use of anticoagulants; Z79.84 Long term (current) use of oral hypoglycemic drugs; Z79.890 Hormone replacement therapy; Z79.899 Other long term (current) drug therapy; Z23 Encounter for immunization; R94.31 Abnormal electrocardiogram [ECG] [EKG]
CPT/HCPCS: 36415; 71045; 78452; 80048; 82962; 83036; 84439; 84443; 84484; 85025; 85027; 93005; 93017; 93306; 96365; 96366; 96372; 96375; 96376; 99221; 99285; A9500; Q9957; A4216; C8929; G0378; J0153; J2785